=== PATIENT | female | born 1945 | race Caucasian/White ===

== ENCOUNTER → 2020-04-23 | Day surgery (SDC) | payer OTHER, BC ==
[~2020-04-23] MED LIST: Zoledronic Acid/Mannitol/Water 5 MG/100 ML INFUS.BOT IV ONE
--- OUTSIDE RECORDS SUMMARY | 2020-04-23 10:55 | XMS REPORT | Clinical Summary ---
:1945 Author Organization [facility] Address [address] [place] [address] Care Team Providers Name Role Phone Rigoberto Gregg MD Primary Care Provider Allergies Active Allergy Reactions Severity Noted Date Comments Ciprofloxacin Rash Low 04/20/2018 Medications Medication Sig Dispensed Refills Start Date End Date Status cholecalciferol, Take 1,000 0 Ac tive vitamin D3, Units by (VITAMIN D3) 1,000 mouth daily. unit tablet ezetimibe (ZETIA) Take 10 mg 3 08/04/2019 Active 10 mg tablet by mouth daily. levothyroxine Take 88 mcg 1 07/19/2019 Act jerman (SYNTHROID) 88 mcg by mouth tablet every morning. LORAZepam (ATIVAN) Take 0.5 mg 0 09/02/2019 Active 0.5 MG tablet by mouth as needed. melatonin 3 mg Take 3 mg by 0 Ac tive tablet mouth nightly as needed for sleep. levocetirizine Take 5 mg by 0 Ac tive (XYZAL) 5 MG tablet mouth as needed for allergies. UNABLE TO FIND as needed. 0 Acti ve Med Name: Natural nectar UNABLE TO FIND as needed. 0 Acti ve Med Name: X-clear saline rinse amLODIPine-benazepr Take 1 0 10/03/2019 Active iL (LOTREL 5-20) capsule by 5-20 mg per capsule mouth daily. sertraline (ZOLOFT) Take 25 mg 0 10/06/2019 Active 25 MG tablet by mouth daily. amlodipine-atorvast Take 1 0 Discontinued (Med atin (CADUET) 5-20 tablet by 0 L ist Cleanup) mg per tablet mouth 2 (two) times a day. Active Problems Not on file Encounters Date Type Specialty Care Team Description 10/17/2019 Office Visit Neurology Wisam Guadalupe Chronic cerebra l ischemia (Primary Dx); MD Alex Small vessel di sease, cerebrovascular 09/27/2019 Transcribe Orders Neurology Wisam Guadalupe Personal h istory of transient ischemic attack (Primary Dx); MD Alex TIA (transient ischemic attack) 09/26/2019 Office Visit Neurology Wisam Guadalupe Cerebrovascular accident MD Alex (CVA), unspecif ied mechanism (HCC) (Primary Dx) after 04/23/2019 Family History Medical History Relation Name Comments Stroke Mother Relation Name Status Comments Mother Social History Tobacco Use Types Packs/Day Years Used Date Never Smoker Smokeless Tobacco: Never Used Alcohol Use Drinks/Week oz/Week Comments Yes 1 Glasses of wine 1.0 Sex Assigned at Date Recorded Not on file Job Start Date Occupation Industry Not on file Not on file Not on file Travel History Travel Start Travel End No recent travel history available. 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 attack) MRA HEAD WO CONTRAST Routine 10/05/2019 10:07 Personal history of Results for this AM [employer] transient ischemic procedure are in attack the results TIA (transient ischemic sect ion. attack) PV TRANSCRANIAL Routine 09/26/2019 5:00 Cerebrovascular Resul ts for this DOPPLER INTRACRANIAL PM [employer] INSPECTOR accident (CVA), proc edure are in ARTERIES COMPLETE unspecified mechanism t he results (HCC) section. after 04/23/2019 Results MRA Neck Wo Contrast (10/05/2019 10:08 AM TANK CAR INSPECTOR) Specimen Narrative Performed At This result has an attachment that is no t available. EXAMINATION: MRA NECK WO CONTRAST [facility] CLINICAL HISTORY: Z86.73 Personal hist ory of transient ischemic attack (TIA) and cerebral infarction without residual deficits, G45.9 Transient cerebral ischemic attack unspecified, cva COMPARISON: None FINDINGS: Noncontrast 2-D and 3-D time-o f-flight MRA of the neck is performed. Source images, multiplanar MIP reformats, and three-dimensional reformats are provided. The common and internal carotid arteries normal in caliber and contour. There is 0% stenosis by NASCET criteria. The left vertebral artery is somewhat hypoplastic. No vertebral artery stenosis or dissection is seen. IMPRESSION: Unremarkable MRA of the neck. [id number] Procedure Note Interface, Radiology Results Incoming - 10/05/2019 11:15 AM TANK CAR INSPECTOR EXAMINATION: MRA NECK WO CONTRAST CLINICAL HISTORY: Z86.73 Personal histo ry of transient ischemic attack (TIA) and cerebral infarction without residual deficits, G45.9 Transient cerebral ischemic attack unspecified, cva COMPARISON: None FINDINGS: Noncontrast 2-D and 3-D time-o f-flight MRA of the neck is performed. Source images, multiplanar MIP reformats, and three-dimensional reformats are provided. The common and internal carotid arteries normal in caliber and contour. There is 0% stenosis by NASCET criteria. The left vertebral artery is somewhat hy poplastic. No vertebral artery stenosis or dissecti on is seen. IMPRESSION: Unremarkable MRA of the neck . [id number] Performing Organization Address City/State/Zipcode Phone Number [facility] [address] [place] [address] MRA Head Wo Contrast (10/05/2019 10:07 AM TANK CAR INSPECTOR) Specimen Narrative Performed At EXAMINATION: MRA HEAD WO CONTRAST [facility] CLINICAL HISTORY: Z86.73 Personal history of transie nt ischemic attack (TIA) and cerebral infarction without residual defic its, G45.9 Transient cerebral ischemic attack unspecified, Cere bral hemorrhage suspected COMPARISON: None FINDINGS: Noncontrast 3-D [id number] MRA of the he ad is performed. Source images, multiplanar MIP reformats, and 3-D MIP reformats are provided. No proximal branch occlusion or high-gra de stenosis is seen. No aneurysm or vascular malformation is identified. IMPRESSION: Unremarkable MRA of the head. [id number] Procedure Note Interface, Radiology Results Incoming - 10/05/2019 10:16 AM TANK CAR INSPECTOR EXAMINATION: MRA HEAD WO CONTRAST CLINICAL HISTORY: Z86.73 Personal histo ry of transient ischemic attack (TIA) and cerebral infarction without residual deficits, G45.9 Transient cerebral ischemic attack unspecified, Cerebral hemorrhage suspected COMPARISON: None FINDINGS: Noncontrast 3-D [id number] MRA of the head is performed. Source images, multiplanar MIP reformats, and 3-D MIP reformats are provided. No proximal branch occlusion or high-gra de stenosis is seen. No aneurysm or vascular malformation is identified. IMPRESSION: Unremarkable MRA of the head. [id number] Performing Organization Address [facility] Phone Number [facility] [address] [place] [address] Pv transcranial Doppler intracranial arteries (09/26/2019 5:00 PM TANK CAR INSPECTOR) Specimen Narrative Performed At This result has an attachment that is no t available. Clinical Indications/Diagnosis: [facility] Equipment: Nilesh PMD 150 Vessel RIGHT LEFT Ophthalmic Artery Antegrade Antegrade Siphon normal normal Anterior Cerebral Artery Normal Not Seen Middle Cerebral Artery Normal- TIBI 5 Normal- TIBI 5 Posterior Cerebral Artery Normal Normal Verterbral Artery Normal Normal Basilic Artery Normal Normal TCD Monitoring Negative Negative BHI: >0.69 (normal) Normal Normal Head Turning Findings: normal cerebral hemodynamic flow seen. normal distal ICA and vertibrobasilar flow seen. Negative spontaneous emboli were detected. BHI: Right MCA =(59-47/47)x100/20= 1.3 BHI: Left MCA =(72-60/60)x100/20=1.0 Physician Interpretation of TCD: 1) There is no stenosis in the distal internal carotid arteries or vertebrobasilar arteries. 2) No hemodynamically significant intracranial stenose s in the major branches of the [place]. 3) No spontaneous emboli were detected during monitori ng. 4) The cerebrovascular reserve is normal on breath hol ding. Recommend ultrasound follow-up in 1-2 years or sooner if symptoms develop. 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
[2020-04-23 11:41] VITALS: BP 178/76; TEMP 98; O2SAT 98; BMI 24.7
== END ==
LOC: DS 09:21
PROVIDERS: ATTEND Internal Medicine
DX: M81.0 Age-related osteoporosis without current pathological fracture (principal); R13.10 Dysphagia, unspecified
CPT/HCPCS: 96365; J3489

== ENCOUNTER 2021-06-21 09:20 | Day surgery (SDC) | payer OTHER, BC ==
[2021-06-21] MEDS ORDERED: Zoledronic Acid/Mannitol/Water 5 MG/100 ML INFUS.BOT IV ONE (10:00)
[2021-06-21 10:21] VITALS: O2SAT 100; BMI 25.8
[2021-06-21 11:19] VITALS: BP 190/85; TEMP 98.3
== END 2021-06-21 11:18 | disposition home or self-care (01) ==
LOC: DS 09:20
PROVIDERS: ATTEND Internal Medicine
DX: M81.0 Age-related osteoporosis without current pathological fracture (principal); R13.10 Dysphagia, unspecified
CPT/HCPCS: 96365; J3489

== ENCOUNTER 2021-12-25 16:14 | Inpatient (IN) | payer OTHER, BC ==
--- OUTSIDE RECORDS SUMMARY | 2021-12-25 16:17 | XMS REPORT | Continuity of Care Document ---
:1945 Author Organization [facility] t Address [address] [place] [address] Care Team Providers Name Role Phone Marysol ANGELES Primary Care Physician Abbie Riggs Attending Clinician Unavailable MARYSOL Admitting Clinician Unavailable Payers Payer Name Policy Type Policy Effective Date Expiration Date Sour ce Number MEDICAREMEDICARE PART [id number] 2010 [place] thodist A AND 00:00:00 [facility] [id number] [place] [place] COMMERCIALBCBS 2014 Meth odist MEDICARE 9 00:00:00 Hospital [id number] -PresentComm ercial Problems Condition Condition Condition Status Onset Resolution Last Treating Co mments Source Name Details Category Date Date Treatment Clinician Date No known No known Disease Metho di active active st problems problems Hospit a l Allergies, Adverse Reactions, Alerts Allergy Allergy Status Severity Reaction(s) Onset Inactive Treating Comm ents Source Name Type Date Date Clinician ciproflo DA Active MT rash [facility] xacin 05-06 00:00: [facility] ampicill DA Active MT rash [facility] in 05-06 00:00: [facility] 00 [facility] tetracyc DA Active MT rash [facility] line 05-06 00:00: Orthope 00 dic [facility]ospita l amoxicil DA Active SV "liver [facility] fidencio problems" 05-06 00:00: Orthope 00 dic Hospita l ciproflo DA Active MT [facility] xacin 05-06 00:00: Orthope 00 dic Hospita l ampicill DA Active MT [facility] in 05-06 00:00: Orthope 00 dic Hospita l tetracyc DA Active MT [facility] line 05-06 00:00: [facility]ope 00 dic Hospita l amoxicil DA Active SV [facility] fidencio 05-06 [place] 00:00: [facility] 00 dic Hospita l Ciproflo Propensi Active Rash Method i xacin ty to 04-20 st adverse 00:00: Hospita reaction 00 l s to drug Family History Family Member Diagnosis Comments Start Date Stop Date Source Natural mother Stroke [facility] Social History Social Habit Start Date Stop Date Quantity Comments Source Tobacco use and 2019-10-17 2019-10-17 Never used [facility] exposure 00:00:00 00:00:00 Alcohol intake 2019-10-17 2019-10-17 .14 /d [facility] 00:00:00 00:00:00 Sex [birth year] [facility] 00:00:00 00:00:00 Smoking Status Start Date Stop Date Source Never smoker [facility] al Medications Ordered Filled Start Stop Current Ordering Indication Dosage Frequency Signature Comments Components Source Medication Medication Date Date Medication? Clinician (SIG) Name Name melatonin 3 2019- Yes 3mg QD Take 3 mg M ethodi mg tablet 1-[address] 19:42: nightly as Hospita 05 needed for l sleep. levocetiriz Yes 5mg Take 5 mg M ethodi ine (XYZAL) 1-[address] 5 MG tablet 19:42: as needed H ospita 05 for l allergies. UNABLE TO 2020-0 Yes as needed. Me thodi FIND - Med Name: st 19:42: Natural Hospita 05 nectar l UNABLE TO 2020-0 Yes as needed. Me thodi FIND -20 Med Name: st 19:42: X-clear Hospita 05 saline l rinse cholecalcif 2019- Yes 1000U QD Take 1,000 Methodi antione, 1-[address] vitamin D3, 19:42: mouth Hospi ta (VITAMIN 05 daily. l D3) 1,000 unit tablet sertraline Yes 25mg QD Take 25 mg M ethodi (ZOLOFT) 25 -[address] MG tablet 00:00: daily. Hospit a 00 l amLODIPine- 2019-0 Yes 1{capsu QD Take 1 M ethodi benazepriL 1-06 le} capsule by st (LOTREL 00:00: mouth Hospita 5-20) 5-20 00 daily. l mg per capsule LORAZepam 2018-09 Yes .5mg Take 0.5 Meth anibal (ATIVAN) 2-[address] 0.5 MG 00:00: mouth as Hospita tablet 00 needed. l ezetimibe 2018-09 Yes 10mg QD Take 10 mg Me thodi (ZETIA) [address] mg tablet 00:00: daily. Hospit a 00 l levothyroxi 2018-09 Yes 88ug QD Take 88 Met hodi ne 0-[address] (SYNTHROID) 00:00: mouth Hospi ta 88 mcg 00 every l tablet morning. Immunizations Ordered Immunization Filled Immunization Date Status Commen ts Source Name Name [facility] COVID-19 MRNA 2020-11-01 Completed Meth odist VACCINATION 00:00:00 [facility] COVID-19 MRNA 2020-10-11 Completed Meth odist VACCINATION 00:00:00 Hospital Procedures This patient has no known procedures. Plan of Care Planned Activity Planned Date Details Comments Source Future Scheduled Test Hepatitis C screening [facility] (procedure) [code = [id number]] Future Scheduled Test COLONOSCOPY SCREENING [facility] [code = COLONOSCOPY SCREENING] Future Scheduled Test SHINGLES VACCINES (#1) [facility] [code = SHINGLES VACCINES (#1)] Future Scheduled Test 65+ PNEUMOCOCCAL [facility] VACCINE (1 of - PPSV23) [code = 65+ PNEUMOCOCCAL VACCINE (1 of - PPSV23)] Future Scheduled Test INFLUENZA VACCINE [code [facility] = INFLUENZA VACCINE] Encounters Start End Encounter Admission Attending Care Care Encounter Source Date/Time Date/Time Type Type Clinicians Facility Department ID 2021-05-06 Inpatient EM Ke[facility] [id number] [facility] 13:00:00 [place] [id number] [place] [facility] 2021-05-16 2021-05-16 Outpatient EM Keely [facility] [id number] [facility] 05:11:00 05:11:00 [place] [id number] [place] [facility] l 2020-11-01 2020-12-10 Clinical 1.2.840.1 [id number] [facility] 14:33:17 15:32:[address] 3.430.2.7 Hospit a .[id number] l .8 2020-10-11 2020-10-11 Clinical 1.2.840.1 [id number] [facility] 12:34:32 12:51:[address] 3.430.2.7 Hospit a .3.608452 l .8 2020-10-11 2020-10-11 Travel 1.2.840.1 [id number] [facility] 00:00:00 00:00:[id number] 3.430.2.7 0.2.7.3.698 Ho spita .[id number] 084.8 l .8 Results This patient has no known results.
[2021-12-25] MEDS ORDERED: FENTANYL CITR 100 MCG/2 ML ONE (17:15)
[2021-12-25] MEDS ORDERED: ONDANSETRON 4 MG/2 ML VIAL ONE ×2 (17:15→18:46)
--- NOTE | 2021-12-25 17:21 | RAD REPORT ---
EXAM DESCRIPTION: RAD - Pelvis - 12/25/2021 4:55 pm CLINICAL HISTORY: Pelvic pain status post injury FINDINGS: Fracture involves the intertrochanteric femur extending into the greater trochanter. Fract ure fragments by up to 6 millimeters. No dislocation
--- NOTE | 2021-12-25 17:21 | RAD REPORT ---
EXAM DESCRIPTION: RAD - Hip Left 2 View - 12/25/2021 4:55 pm CLINICAL HISTORY: Left hip pain status post injury FINDINGS: Fracture involves the intertrochanteric femur extending into the greater trochanter. Fracture fragmen ts by up to 6 millimeters. No dislocation
[2021-12-25] MEDS ORDERED: METHOCARBAMOL 1,000 MG/10 ML VIAL IV ONE (17:28)
[2021-12-25] MEDS ORDERED: NA CHLORIDE 0.9% 100 ML IV ONE (17:28)
[2021-12-25 17:31] LABS: Absolute Lymphocytes (CBC) 2.2 K/uL (0.7-4.9); Hematocrit 34.9 % (36.0-45.0); RBC Red Blood Cell Count 3.67 M/uL (3.86-4.86)
--- NOTE | 2021-12-25 17:36 | EDPHYS ---
Physician Documentation [facility] Name: Marsha Rosado Age: 76 yrs Sex: Female : 1945 Arrival Date: 12/25/2021 Time: 16:18 Bed 8 Private MD: ED Physician Poli Taylor HPI: 12/25 17:30 This 76 yrs old Female presents to ER via EMS with complaints of Hip Injury. jr8 17:30 The patient or guardian reports decreased range of motion, pain. that occurred jr8 outdoors, sustained from a fall, from a standing position, left leg is externally rotated, The patient is not able to ambulate. Patient is not able to bear weight. There is no radiation of the patient's discomfort. The complaints affect the left leg. Onset: The symptoms/episode began/occurred acutely, today. Modifying factors: The symptoms are alleviated by nothing, the symptoms are aggravated by external rotation. Associated signs and symptoms: Loss of consciousness: the patient experienced no loss of consciousness. Severity of symptoms: At their worst the symptoms were moderate, in the emergency department the symptoms are unchanged. The patient has not experienced similar symptoms in the past. The patient has not recently seen a physician. This is a 76-year-old female that presented emergency room via EMS with sustaining an accidental mechanical fall outside. Stated that she hit the corner on the pavement causing her to rotate and fall onto left hip. Since then has had moderate pain to the left hip and inability to ambulate. Denies hitting head or neck or any other injury at this time.. Historical: - Allergies: 16:20 Ciprofloxacin; bp - Home Meds: 16:20 aspirin 81 mg oral chew 1 tab once daily [Active]; amlodipine oral [Active]; bp - PMHx: 16:20 Hypertensive disorder; Hypothyroidism; Hypercholesterolemia; bp - Immunization history:: Adult Immunizations up to date. - Social history:: Smoking status: Patient denies any tobacco usage or history of. ROS: 17:30 Constitutional: Negative for fever, chills, and weight loss, Neck: Negative for injury, jr8 pain, and swelling, Cardiovascular: Negative for chest pain, palpitations, and edema, Respiratory: Negative for shortness of breath, cough, wheezing, and pleuritic chest pain, Abdomen/GI: Negative for abdominal pain, nausea, vomiting, diarrhea, and constipation, Back: Negative for injury and pain, Skin: Negative for injury, rash, and discoloration, Neuro: Negative for headache, weakness, numbness, tingling, and seizure. 17:30 MS/extremity: Positive for decreased range of motion, pain, tenderness, of the left leg. Exam: 17:30 Constitutional: This is a well developed, well nourished patient who is awake, alert, jr8 and in no acute distress. Cardiovascular: Regular rate and rhythm with a normal S1 and S2. No gallops, murmurs, or rubs. Normal PMI, no JVD. No pulse deficits. Respiratory: Lungs have equal breath sounds bilaterally, clear to auscultation and percussion. No rales, rhonchi or wheezes noted. No increased work of breathing, no retractions or nasal flaring. Abdomen/GI: Soft, non-tender, with normal bowel sounds. No distension or tympany. No guarding or rebound. No evidence of tenderness throughout. Back: No spinal tenderness. No costovertebral tenderness. Full range of motion. Skin: Warm, dry with normal turgor. Normal color with no rashes, no lesions, and no evidence of cellulitis. Neuro: Awake and alert, GCS 15, oriented to person, place, time, and situation. Cranial nerves II-XII grossly intact. Motor strength 5/5 in all extremities. Sensory grossly intact. 17:30 Musculoskeletal/extremity: Extremities: grossly normal except: noted in the left leg: Patient has moderate tenderness to the posterior left hip with decreased range of motion secondary to pain. Pulses 2+ dorsal pedal is with normal sensation. Remainder of extremities unremarkable, Circulation is intact in all extremities. Sensation intact. Vital Signs: 16:20 BP 176 / 93; Pulse 85; Resp 16; Temp 98; Pulse Ox 98% ; bp 17:30 BP 159 / 84; Pulse 74; Resp 16; Pulse Ox 98% ; bp 19:41 BP 174 / 84; Pulse 75; Resp 18 S; Pulse Ox 100% on 2 lpm NC; Pain 5/10; as6 22:02 BP 171 / 80; Pulse 87; Resp 16; Pulse Ox 100% on R/A; st1 MDM: 16:18 Patient medically screened. [facility] 17:30 Data reviewed: vital signs, nurses notes, lab test result(s), EKG, radiologic studies, jr8 plain films. Data interpreted: Pulse oximetry: on room air is 98 %. Interpretation: normal. Counseling: I had a detailed discussion with the patient and/or guardian regarding: the historical points, exam findings, and any diagnostic results supporting the discharge/admit diagnosis, lab results, radiology results, the need for further work-up and treatment in the hospital. ED course: Spoke with Dr. Mathew who will see patient and do surgery tomorrow evening. Dr. Gregg called as well and will admit patient.. 12/25 17:18 Order name: Basic Metabolic Panel; Complete Time: 18:05 12/25 17:18 Order name: CBC with Diff; Complete Time: 17:47 12/25 17:18 Order name: Troponin HS; Complete Time: 18:12/25 17:18 Order name: PT-INR; Complete Time: 17:47 12/25 17:18 Order name: Ptt, Activated; Complete Time: 17:47 12/25 19:39 Order name: COVID-19/FLU A+B (Document "Date of Onset" if Symptomatic) mw2 12/25 16:18 Order name: XRAY Hip LEFT 2 view; Complete Time: 17:29 12/25 16:18 Order name: XRAY Pelvis; Complete Time: 17:29 12/25 17:18 Order name: XRAY Chest (1 view); Complete Time: 18:05 12/25 21:17 Order name: COVID-19/FLU A+B; Complete Time: 21:19 EDWI 12/25 17:18 Order name: EKG; Complete Time: 17:18 12/25 17:18 Order name: Cardiac monitoring; Complete Time: 17:47 12/25 17:18 Order name: EKG - Nurse/Tech; Complete Time: 19:04 12/25 17:18 Order name: IV Saline Lock; Complete Time: 17:20 12/25 17:18 Order name: Labs collected and sent; Complete Time: 17:20 12/25 17:18 Order name: O2 Per Protocol; Complete Time: 17:20 12/25 17:18 Order name: O2 Sat Monitoring; Complete Time: 17:20 12/25 17:29 Order name: Grayson; Complete Time: 19:41 jr8 12/25 17:43 Order name: CONS Physician Consult; Complete Time: 22:01 EDMS Administered Medications: 17:15 Drug: fentaNYL (PF) 50 mcg Route: IVP; Site: left antecubital; bp 19:04 Follow up: Response: Pain is decreased bp 17:15 Drug: Zofran (Ondansetron) 4 mg Route: IVP; Site: left antecubital; bp 19:04 Follow up: Response: No adverse reaction bp 17:30 Drug: Robaxin (methocarbamol) 1 grams Route: IVPB; Infused Over: 1 hrs; Site: left bp antecubital; 19:04 Follow up: IV Status: Completed infusion; IV Intake: 100ml bp 18:10 Drug: Dilaudid (HYDROmorphone) 0.5 mg Route: IVP; Site: left antecubital; bp 19:04 Follow up: Response: Pain is decreased bp 19:00 Drug: Valium (diazepam) 5 mg Route: IVP; Site: left antecubital; bp 19:04 Follow up: Response: Pain is decreased bp Disposition: 12/26 18:15 Co-signature as Attending Physician, Poli WALKER was immediately available on-site ms3 in the Emergency Department for consultation in the care of the patient.. Disposition Summary: 12/25/21 17:35 Hospitalization Ordered Hospitalization Status: Inpatient Admission 8 Provider: Rigoberto Gregg Location: Telemetry/MedSurg (Inpatient) [facility] Condition: Stable 8 Problem: new jr8 Symptoms: have improved jr8 Bed/Room Type: Standard [facility] Room Assignment: 219(12/25/21 21:25) cg Diagnosis - Displaced fracture of greater trochanter of left femur jr8 Forms: - Medication Reconciliation Form jr8 - SBAR form jr8 Signatures: Dispatcher [employer] EDMS Erasmo wSenson PA PA jr8 Alejandra Brown, RN RN Manuel Grover RN RN Poli Oswald DO DO ms3 Corrections: (The following items were deleted from the chart) 12/25 21:25 17:35 jr8 cg
--- NOTE | 2021-12-25 17:36 | ER ---
Nurse's Notes [facility] Name: Marsha Rosado Age: 76 yrs Sex: Female : 1945 Arrival Date: 12/25/2021 Time: 16:18 Bed 8 Private MD: Diagnosis: Displaced fracture of greater trochanter of left femur Presentation: 12/25 16:20 Chief complaint: EMS states: MECHANICAL FALL WHILE WALKING. Coronavirus screen: At this bp time, the client does not indicate any symptoms associated with coronavirus-19. Ebola Screen: No symptoms or risks identified at this time. Initial Sepsis Screen: Does the patient meet any 2 criteria? No. Patient's initial sepsis screen is negative. Does the patient have a suspected source of infection? No. Patient's initial sepsis screen is negative. Risk Assessment: Do you want to hurt yourself or someone else? Patient reports no desire to harm self or others. Onset of symptoms was December 25, 2021 at 16:15. Care prior to arrival: IV initiated. 18 GA, in the left antecubital area. 16:20 Method Of Arrival: EMS: [facility] bp 16:20 Acuity: YUKO 3 bp Triage Assessment: 16:20 General: Appears distressed, uncomfortable, Behavior is cooperative, appropriate for bp age, anxious. Pain: Complains of pain in left leg. EENT: No deficits noted. Neuro: No deficits noted. Cardiovascular: No deficits noted. Respiratory: No deficits noted. GI: No signs and/or symptoms were reported involving the gastrointestinal system. : No signs and/or symptoms were reported regarding the genitourinary system. Derm: No deficits noted. Musculoskeletal: LEFT LEG SHORTENED AND EXTERNALLY ROTATED. Historical: - Allergies: 16:20 Ciprofloxacin; bp - Home Meds: 16:20 aspirin 81 mg oral chew 1 tab once daily [Active]; amlodipine oral [Active]; bp - PMHx: 16:20 Hypertensive disorder; Hypothyroidism; Hypercholesterolemia; bp - Immunization history:: Adult Immunizations up to date. - Social history:: Smoking status: Patient denies any tobacco usage or history of. Screenin:20 Abuse screen: Denies threats or abuse. Denies injuries from another. Nutritional bp screening: No deficits noted. Tuberculosis screening: No symptoms or risk factors identified. Fall Risk None identified. Assessment: 16:20 General: SEE TRIAGE NOTE. bp 17:30 Reassessment: No changes from previously documented assessment. Patient and/or family bp updated on plan of care and expected duration. Pain level reassessed. SCHEDULED FOR OR TOMORROW AFTERNOON WITH [facility]. 19:44 General: pt reports 5/10 pain ot left leg/hip. as6 Vital Signs: 16:20 BP 176 / 93; Pulse 85; Resp 16; Temp 98; Pulse Ox 98% ; bp 17:30 BP 159 / 84; Pulse 74; Resp 16; Pulse Ox 98% ; bp 19:41 BP 174 / 84; Pulse 75; Resp 18 S; Pulse Ox 100% on 2 lpm NC; Pain 5/10; as6 22:02 BP 171 / 80; Pulse 87; Resp 16; Pulse Ox 100% on R/A; st1 ED Course: 16:18 Patient arrived in ED. bp 16:18 Erasmo Swenson PA is PHCP. jr8 16:18 Poli Taylor DO is Attending Physician. jr8 16:20 Arm band placed on. bp 16:20 Patient has correct armband on for positive identification. Bed in low position. Call bp light in reach. Side rails up X2. 16:20 Maintain EMS IV. Dressing intact. Good blood return noted. Site clean \\T\\ dry. Gauge \\T\\ bp site: 18 G LEFT AC. 16:45 Triage completed. bp 16:49 Manuel Aviles, RN is Primary Nurse. bp 16:57 XRAY Hip LEFT 2 view In Process Unspecified. EDMS 16:57 XRAY Pelvis In Process Unspecified. EDMS 17:34 Rigoberto Gregg MD is Hospitalizing Provider. jr8 17:49 XRAY Chest (1 view) In Process Unspecified. EDMS 19:40 Grayson cath inserted, using sterile technique, 18 Fr., by ne, balloon inflated, to as6 gravity drainage. 19:41 Primary Nurse role handed off by Manuel Aviles, ALCIRA mw2 19:41 Armando Varghese RN is Primary Nurse. as6 21:59 No provider procedures requiring assistance completed. Patient admitted, IV remains in st1 place. 22:01 COVID-19/FLU A+B (Document "Date of Onset" if Symptomatic) Sent. st1 22:08 Report given to ALCIRA Edmondson all questions and concerns addressed. st1 Administered Medications: 17:15 Drug: fentaNYL (PF) 50 mcg Route: IVP; Site: left antecubital; bp 19:04 Follow up: Response: Pain is decreased bp 17:15 Drug: Zofran (Ondansetron) 4 mg Route: IVP; Site: left antecubital; bp 19:04 Follow up: Response: No adverse reaction bp 17:30 Drug: Robaxin (methocarbamol) 1 grams Route: IVPB; Infused Over: 1 hrs; Site: left bp antecubital; 19:04 Follow up: IV Status: Completed infusion; IV Intake: 100ml bp 18:10 Drug: Dilaudid (HYDROmorphone) 0.5 mg Route: IVP; Site: left antecubital; bp 19:04 Follow up: Response: Pain is decreased bp 19:00 Drug: Valium (diazepam) 5 mg Route: IVP; Site: left antecubital; bp 19:04 Follow up: Response: Pain is decreased bp Intake: 19:04 IV: 100ml; Total: 100ml. bp Outcome: 17:35 Decision to Hospitalize by Provider. jr8 22:00 Admitted to Med/surg accompanied by tech, family with patient, via stretcher, room 219, st1 with chart. 22:00 Condition: good st1 22:00 Instructed on the need for admit. 22:50 Patient left the ED. st1 Signatures: Dispatcher [employer] EDMS Erasmo Swenson PA PA jr8 Manuel Aviles RN RN Arnulfo Cosme 2 Armando Varghese RN RN as6 Keren Mcclure RN RN st1
[2021-12-25 17:38] LABS: Protime INR 0.98
[2021-12-25] MEDS ORDERED: NA CHLORIDE 0.9% 250 ML ONE (17:38)
--- NOTE | 2021-12-25 17:57 | RAD REPORT ---
EXAM DESCRIPTION: Magy Single View12/25/2021 5:47 pm CLINICAL HISTORY: Preop for hip surgery COMPARISON: 2009 FINDINGS: The lungs appear clear of acute infiltrate. The heart is mildly enlarged IMPRESSION: No acute abnormalities displayed
[2021-12-25 18:01] LABS: Potassium 3.7 mmol/L (3.5-5.1); Troponin High Sensitivity 5.9 pg/mL (<58.9)
[2021-12-25] MEDS ORDERED: HYDROMORPHONE HCL 0.5 MG/0.5 ML INJ ONE (18:07)
[2021-12-25] MEDS ORDERED: ONDANSETRON 4 MG/2 ML VIAL IV PRN (18:40)
[2021-12-25] MEDS ORDERED: MORPHINE 4 MG/ML SYR ONE (18:46)
[2021-12-25] MEDS: MORPHINE 4 MG/ML SYR IV PRN ×2 (18:47→23:23)
[2021-12-25] MEDS ORDERED: DIAZEPAM 10 MG/2 ML INJ SYRINGE ONE (18:58)
[2021-12-25 21:17] LABS: SARS-COV-2 RT PCR NEGATIVE (NEGATIVE)
--- NOTE | 2021-12-25 22:00 | P.HP ---
Certification for Inpatient Patient admitted to: Inpatient With expected LOS: >2 Midnights Practitioner: I am a practitioner with admitting privileges, knowledge of patient current condition, hospital course, and medical plan of care. Services: Services provided to patient in accordance with Admission requirements found in Title 42 Section 412.3 of the Code of Federal Regulations Patient History Date of Service: 12/25/21 Reason for admission: FELL AND HAS L HIP PAIN History of Present Illness: JOSE IS LADY WITH HTN AND OSTEOPOROSIS WITH CHRONIC ANXIETY. SHE FELL ABOUT 1 MILE FROM HOME WALKING TO EXERCISE, TRIPPED ON UNEVEN GROUND AND LANDED ON L HIP. SHE HAS SEVERE PAIN AND SPASMS. Allergies ciprofloxacin [From Cipro] Allergy (Verified 06/21/21 10:21) Unknown ciprofloxacin HCl [From Cipro] Allergy (Verified 06/21/21 10:21) Unknown Home Medications: Aspirin [Adult Aspirin Regimen] 81 mg PO DAILY 04/23/20 Ezetimibe 10 mg PO DAILY 04/23/20 Levothyroxine Sodium 88 mcg PO DAILY 04/23/20 Amlodipine Besylate/Benazepril [Amlodipine-Benazepril 5-20 mg] 1 each PO DAILY 06/21/21 Review of Systems 10-point ROS is otherwise unremarkable Physical Examination - Physical Exam General: Moderate distress, Severe distress HEENT: Atraumatic, PERRLA, Mucous membr. moist/pink, EOMI, Sclerae nonicteric Neck: Supple, 2+ carotid pulse no bruit, No LAD, Without JVD or thyroid abnormality Respiratory: Clear to auscultation bilaterally, Normal air movement Cardiovascular: Regular rate/rhythm, Normal S1 S2 Gastrointestinal: Normal bowel sounds, No tenderness Musculoskeletal: No tenderness, Other Integumentary: No rashes Neurological: Normal gait, Normal speech, Normal strength at 5/5 x4 extr, Normal tone, Normal affect Lymphatics: No axilla or inguinal lymphadenopathy - Studies Laboratory Data (last 24 hrs) 12/25/21 17:20: PT 10.8, INR 0.98, APTT 32.7 12/25/21 17:20: WBC 7.7, Hgb 12.1, Hct 34.9 L, Plt Count 283 12/25/21 17:20: Sodium 129 L, Potassium 3.7, BUN 16, Creatinine 0.88, Glucose 115 H Assessment and Plan - Problems (Diagnosis) (1) Closed left hip fracture Current Visit: Yes Status: Acute Plan: SHE WILL HAVE SURGERY IN AM. SHE HAS NO KNOWN CORONARY ISSUES. MEDICALLY CLEARED WITH MILD RISK. (2) HTN (hypertension) Current Visit: Yes Status: Chronic Qualifiers: Hypertension type: primary hypertension Qualified Code(s): I10 - Essential (primary) hypertension (3) Anxiety Current Visit: Yes Status: Chronic Plan: MILD TO MODERATE. ABLE TO CONTROL WITHOUT MEDS. AT ONE POINT SHE WAS ON MEDS BEFORE. - Advance Directives Does patient have a Living Will: Yes Does patient have a Durable POA for Healthcare: Yes
[2021-12-25 23:10] VITALS: BMI 26.8
[2021-12-25] MEDS: NA CHLORIDE 0.9% 1,000 ML IV SCH (23:17)
[2021-12-26] MEDS: MORPHINE 4 MG/ML SYR IV PRN (03:03)
[2021-12-26 05:45] LABS: Absolute Lymphocytes (CBC) 1.3 K/uL (0.7-4.9); Hematocrit 35.9 % (36.0-45.0); Lymphocytes % 14.6 % (15.3-44.8); MPV 7.7 fL (7.6-11.3); RBC Red Blood Cell Count 3.75 M/uL (3.86-4.86)
[2021-12-26] MEDS: TIZANIDINE 4 MG TABLET PO PRN ×4 (05:48→20:19)
[2021-12-26 06:00] LABS: Potassium 4.2 mmol/L (3.5-5.1)
[2021-12-26] MEDS: LEVOTHYROXINE SOD 0.088 MG TAB PO SCH (07:30)
[2021-12-26] MEDS: NA CHLORIDE 0.9% 1,000 ML IV SCH (08:00)
[2021-12-26] MEDS: ASPIRIN EC 81 MG TAB PO SCH (08:41)
[2021-12-26] MEDS ORDERED: MORPHINE 4 MG/ML SYR IV SCH (09:00)
[2021-12-26] MEDS ORDERED: AMLODIPINE 5 MG TAB PO SCH (09:00)
[2021-12-26] MEDS ORDERED: BENAZEPRIL 20 MG TAB PO SCH ×2 (09:00→21:00)
[2021-12-26] MEDS ORDERED: EZETIMIBE 10 MG TAB PO SCH (09:00)
--- NOTE | 2021-12-26 12:17 | P.PN ---
Subjective Date of Service: 12/26/21 Chief Complaint: FELL AND HAS L HIP PAIN Subjective: No new changes STILL IN A LOT OF PAIN THE BONE FRAGMENTS ARE AND WITH ANY MOVEMENT SHE HAS SPASMS. Review of Systems 10-point ROS is otherwise unremarkable Physical Examination - Vital Signs Temperature: 97.5 F Blood Pressure: 137/63 Pulse: 76 Respirations: 16 Pulse Ox (%): 98 - Physical Exam General: Oriented x3, Moderate distress, Severe distress HEENT: Atraumatic, PERRLA, EOMI Neck: Supple, JVD not distended Respiratory: Clear to auscultation bilaterally, Normal air movement Cardiovascular: Regular rate/rhythm, Normal S1 S2 Gastrointestinal: Normal bowel sounds, No tenderness Musculoskeletal: No tenderness Integumentary: No rashes Neurological: Normal speech, Normal tone, Normal affect Lymphatics: No axilla or inguinal lymphadenopathy - Studies Laboratory Data (last 24 hrs) 12/25/21 17:20: PT 10.8, INR 0.98, APTT 32.7 12/25/21 17:20: WBC 7.7, Hgb 12.1, Hct 34.9 L, Plt Count 283 12/25/21 17:20: Sodium 129 L, Potassium 3.7, BUN 16, Creatinine 0.88, Glucose 115 H Medications List Reviewed: Yes Assessment And Plan - Current Problems (Diagnosis) (1) Closed left hip fracture Current Visit: Yes Status: Acute Plan: SHE WILL HAVE SURGERY IN AM. SHE HAS NO KNOWN CORONARY ISSUES. MEDICALLY CLEARED WITH MILD RISK. (2) HTN (hypertension) Current Visit: Yes Status: Chronic Qualifiers: Hypertension type: primary hypertension Qualified Code(s): I10 - Essential (primary) hypertension (3) Anxiety Current Visit: Yes Status: Chronic Plan: MILD TO MODERATE. ABLE TO CONTROL WITHOUT MEDS. AT ONE POINT SHE WAS ON MEDS BEFORE. (4) SIADH (syndrome of inappropriate ADH production) Current Visit: Yes Status: Acute Plan: HER SODIUM IS LOW AT 127 S OSM IS LOW AND U OSM IS HIGH. NARCOTICS CAN GIVE RISE TO SIADH. I STOPPED IV FLUIDS AND RESTRICTED ORAL FLUIDS. THIS SHOULD HELP SODIUM COME UP. SHE IS STILL MEDICALLY CLEARED FOR SURGERY. THIS SHOULD NOT DELAY SURGERY. SHE NEEDS NARCOTICS SHE IS IN SEVERE PAIN.
[2021-12-26] MEDS: HYDROMORPHONE HCL 1 MG/ML INJ IV PRN ×3 (13:21→23:36)
[2021-12-26 14:20] LABS: BUN Blood Urea Nitrogen 11 mg/dL (7-18); Bicarbonate 24 mmol/L (21-32); Glucose Level 103 mg/dL (74-106); Potassium 3.8 mmol/L (3.5-5.1); Sodium Level 128 mmol/L (136-145)
[2021-12-26] MEDS: AMLODIPINE 5 MG TAB PO SCH (20:19)
[2021-12-26] MEDS: EZETIMIBE 10 MG TAB PO SCH (20:19)
[2021-12-26 21:45] LABS: MPV 7.9 fL (7.6-11.3)
[2021-12-26 22:01] LABS: Potassium 3.9 mmol/L (3.5-5.1)
[2021-12-27] MEDS: LORazepam 2 MG/ML VIAL IV PRN ×3 (00:56→22:03)
--- NOTE | 2021-12-27 03:55 | CON ---
Date of Consultation: 12/26/2021 History Of Present Illness: This is my first time seeing this patient to my knowledge. She is a 76- year-old female, who unfortunately fell yesterday injuring her left lower extremity. She was seen an d examined in the emergency department where she was ruled out for other injuries, however x-rays dem onstrated a slightly displaced proximal femur fracture. I am called in for consultation. Physical Examination: All of her long bones and joints are palpated without pain or crepitation with the exception of her l eft hip. Her left hip is painful with any movement or palpation. Imaging: Review of x-rays reveals a displaced intertrochanteric fracture on the left. Also, review of laboratories demonstrated a slightly low sodium. Assessment: A 76-year-old female, now with a slightly displaced intertrochanteric fracture on the le ft and low sodium. Plan: Plan at this time, I have discussed the sodium as well as treatment plan with Anesthesia and Levy Gregg and we will currently try to get this addressed with plan for closed reduction, intramedulla ry vandana fixation of left femur later today. This plan has been discussed with the patient and family in detail. They state they understand things as presented and want to proceed. /EBONY Voice ID: [id number] Report ID: [id number]
[2021-12-27] MEDS: HYDROMORPHONE HCL 1 MG/ML INJ IV PRN ×2 (05:26→14:21)
[2021-12-27 06:40] LABS: Hematocrit 34.5 % (36.0-45.0); Lymphocytes % 11.5 % (15.3-44.8); MPV 7.6 fL (7.6-11.3); RBC Red Blood Cell Count 3.68 M/uL (3.86-4.86)
[2021-12-27 06:53] LABS: BUN Blood Urea Nitrogen 10 mg/dL (7-18); Bicarbonate 23 mmol/L (21-32); Glucose Level 114 mg/dL (74-106); Potassium 3.8 mmol/L (3.5-5.1); Sodium Level 128 mmol/L (136-145)
[2021-12-27] MEDS: LEVOTHYROXINE SOD 0.088 MG TAB PO SCH (07:30)
[2021-12-27] MEDS ORDERED: SODIUM CHLORIDE 1 GM TAB PO STA (07:56)
[2021-12-27] MEDS ORDERED: FUROSEMIDE 20 MG/ 2ML VIAL IV ONE (07:57)
[2021-12-27] MEDS ORDERED: TRANEXAMIC ACID 1,000 MG in NA CHLORIDE 0.9% 50 ML IV SCH (08:00)
[2021-12-27] MEDS: ENOXAPARIN 40 MG/0.4 ML SQ SCH (08:09)
[2021-12-27] MEDS: ASPIRIN EC 81 MG TAB PO SCH (08:09)
[2021-12-27] MEDS ORDERED: METOPROLOL TARTRATE 5 MG/5 ML INJ IV PRN (08:47)
[2021-12-27 10:54] LABS: Potassium 3.5 mmol/L (3.5-5.1)
[2021-12-27] MEDS ORDERED: CEFAZOLIN SODIUM 1 GM/VIAL ONE (11:23)
[2021-12-27] MEDS ORDERED: Ringers Lactate 1,000 ML IV ONE (11:23)
[2021-12-27] MEDS ORDERED: FENTANYL CITR 100 MCG/2 ML ONE (11:24)
[2021-12-27] MEDS ORDERED: MIDAZOLAM HCL 2 MG/2 ML INJ ONE (11:25)
[2021-12-27] MEDS ORDERED: propofoL 200 MG/20 ML VIAL IV ONE (11:25)
[2021-12-27] MEDS ORDERED: LIDOCAINE 2% MPF 5 ML VIAL ONE (11:25)
[2021-12-27] MEDS ORDERED: EPHEDRINE SULF 50 MG/ML VIAL ONE (12:01)
[2021-12-27] MEDS ORDERED: ONDANSETRON 4 MG/2 ML VIAL ONE (12:14)
[2021-12-27] MEDS ORDERED: KETOROLAC 30 MG/ML INJ ONE (12:30)
--- NOTE | 2021-12-27 12:40 | P.BOP ---
Preoperative diagnosis: left proximal femur fracture Postoperative diagnosis: same Primary procedure: left proximal femur SUMEET vandana fixation Estimated blood loss: 20ccs Anesthesia: General Complications: None Transferred to: Recovery Room Condition: Good
[2021-12-27 13:39] VITALS: O2SAT 99
--- NOTE | 2021-12-27 14:03 | P.PN ---
Subjective Date of Service: 12/27/21 Chief Complaint: FELL AND HAS L HIP PAIN STILL IN A LOT OF PAIN THE BONE FRAGMENTS ARE AND WITH ANY MOVEMENT SHE HAS SPASMS. SP SURGERY TODAY. WE HAD SODIUM UP TO 129. SHE HAS NO SYMPTOMS FROM LOW SODIUM. SHE DID WELL WITH SURGERY. DR VALLES CALLED. I ALSO TALKED TO DR. LEVINE YESTERDAY. Physical Examination - Vital Signs Temperature: 97.9 F Blood Pressure: 157/77 Pulse: 75 Respirations: 16 Pulse Ox (%): 97 - Physical Exam General: Oriented x3, Moderate distress HEENT: Atraumatic, PERRLA, EOMI Neck: Supple, JVD not distended Respiratory: Clear to auscultation bilaterally, Normal air movement Cardiovascular: Regular rate/rhythm, Normal S1 S2 Gastrointestinal: Normal bowel sounds, No tenderness Musculoskeletal: No tenderness Integumentary: No rashes Neurological: Normal speech, Normal tone, Normal affect Lymphatics: No axilla or inguinal lymphadenopathy - Studies Medications List Reviewed: Yes Assessment And Plan - Current Problems (Diagnosis) (1) Closed left hip fracture Current Visit: Yes Status: Acute Plan: SHE WILL HAVE SURGERY IN AM. SHE HAS NO KNOWN CORONARY ISSUES. MEDICALLY CLEARED WITH MILD RISK. Qualifiers: Encounter type: subsequent encounter (2) HTN (hypertension) Current Visit: Yes Status: Chronic Qualifiers: Hypertension type: primary hypertension Qualified Code(s): I10 - Essential (primary) hypertension (3) Anxiety Current Visit: Yes Status: Chronic Plan: MILD TO MODERATE. ABLE TO CONTROL WITHOUT MEDS. AT ONE POINT SHE WAS ON MEDS BEFORE. (4) SIADH (syndrome of inappropriate ADH production) Current Visit: Yes Status: Acute Plan: HER SODIUM IS LOW AT 127 S OSM IS LOW AND U OSM IS HIGH. NARCOTICS CAN GIVE RISE TO SIADH. I STOPPED IV FLUIDS AND RESTRICTED ORAL FLUIDS. THIS SHOULD HELP SODIUM COME UP. SHE IS STILL MEDICALLY CLEARED FOR SURGERY. THIS SHOULD NOT DELAY SURGERY. SHE NEEDS NARCOTICS SHE IS IN SEVERE PAIN. SODIUM TABLETS AND LASIX GIVEN. WILL CONTINUE ORAL HYDRATION STOP BENAZEPRIL CHANGE TO COREG. THIS MAY HELP IMPROVE SODIUM.
[2021-12-27] MEDS: carvediloL 6.25 MG TAB PO SCH ×2 (14:29→20:16)
[2021-12-27] MEDS ORDERED: carvediloL 6.25 MG TAB PO ONE (20:08)
[2021-12-27 20:53] LABS: Magnesium 1.9 mg/dL (1.8-2.4); Potassium 3.6 mmol/L (3.5-5.1)
[2021-12-27] MEDS: EZETIMIBE 10 MG TAB PO SCH (20:53)
[2021-12-27] MEDS: AMLODIPINE 5 MG TAB PO SCH (20:54)
[2021-12-27] MEDS: methocarbamoL 500 MG TAB PO PRN (20:59)
[2021-12-27] MEDS ORDERED: POTASSIUM CL SA 10 MEQ TAB PO ONE (21:58)
--- NOTE | 2021-12-27 22:53 | OP ---
Date of Procedure: 12/27/2021 Surgeon: Samy Mathew MD Preoperative Diagnosis: Left comminuted proximal femur fracture. Postoperative Diagnosis: Left comminuted proximal femur fracture. Procedure: Left closed reduction with intramedullary vandana fixation using the Biomet AFFIXUS nail. Estimated Blood Loss: 20 cc. Complications: No complications. Specimen: No pathology specimen sent. Indications For Operation: Ms. Rosado is a 76-year-old female who unfortunately fell injuring her le ft lower extremity. She was seen and examined in the emergency room where she was ruled out for othe r injuries. However, unfortunately, she did have a somewhat comminuted proximal femur fracture. I w as called to see her. On physical examination, she had no other pain with the exception of her left hip. Any movement of the left hip causes pain. Review of radiographs revealed what at first appears to be an intertrochanteric fracture, however the fracture line does go down significantly more. The re is an obvious fracture that is somewhat distal to the lesser trochanter and then there is a much m ore subtle fracture, which extends farther posteriorly, appearing just as a hairline on the films, ho wever, the majority of the fractures in the intertrochanteric region. Risks, benefits, and alternati ves to the procedure planned, which is closed reduction, intramedullary vandana fixation was discussed wi th the patient and family. They state they understand things as presented. Wished to proceed. Description Of Procedure: The patient was taken to the operating room and placed in supine position. General anesthesia was obtained by staff. Following this, she was then placed on the fracture tabl e and appropriately positioned. All fractures appeared to be essentially anatomically reduced after manipulation. After this, the left lower extremity was then prepped and draped in the usual sterile fashion for this procedure. The greater trochanter was marked out using the C-arm and a vertical inc ision was made carefully through skin and soft tissues and a small incision was made in the fascia ju st superior to the greater trochanter. This was easily palpated with a finger. Starting awl was the n used to establish starting portal and the guide pin was placed easily down the femoral shaft. Foll owing this, the hand stitcher was used, and as the hand stitcher was being used, you could see that the p osterior fragment displaces slightly, but not that significantly. After this, the vandana was then place d and maintains a very slight displacement of the fracture posteriorly. The cephalomedullary screw w as then placed to appropriate depth and some compression was made in hopes that this could correct th is slightly. Also following this, the antirotation screw was then placed. The distal screw placemen t was selected to be somewhere distal to the more distal aspect of the fracture and the most distal i nterlocking screw was then placed. After this, then gently irrigated and fascia closed using heavy V icryl sutures, followed by closure of skin with Vicryl followed by bernadine. The patient was then ronni shannon in Aquacel dressing, awakened and taken to recovery room in good condition. No complications. SE/MODL Voice ID: [id number] Report ID: [id number]
[2021-12-28] MEDS: HYDROMORPHONE HCL 1 MG/ML INJ IV PRN ×2 (01:47→07:41)
[2021-12-28 05:57] LABS: Absolute Lymphocytes (CBC) 1.4 K/uL (0.7-4.9); Hematocrit 35.5 % (36.0-45.0); Lymphocytes % 15.9 % (15.3-44.8); MPV 7.7 fL (7.6-11.3); RBC Red Blood Cell Count 3.74 M/uL (3.86-4.86)
[2021-12-28 06:11] LABS: Potassium 4.1 mmol/L (3.5-5.1)
[2021-12-28] MEDS: LEVOTHYROXINE SOD 0.088 MG TAB PO SCH (06:24)
[2021-12-28] MEDS: SODIUM CHLORIDE 1 GM TAB PO SCH ×2 (08:00→17:00)
--- NOTE | 2021-12-28 08:55 | P.PN ---
Subjective Date of Service: 12/28/21 Chief Complaint: POST OP DAY 1 HIP FRACTURE Subjective: Improving STILL IN A LOT OF PAIN THE BONE FRAGMENTS ARE AND WITH ANY MOVEMENT SHE HAS SPASMS. SP SURGERY TODAY. WE HAD SODIUM UP TO 129. SHE HAS NO SYMPTOMS FROM LOW SODIUM. SHE DID WELL WITH SURGERY. DR VALLES CALLED. I ALSO TALKED TO DR. LEVINE YESTERDAY. SHE IS DOING GOOD, EATING WELL. PAIN HAS IMPROVED SIGNIFICANTLY. Review of Systems 10-point ROS is otherwise unremarkable Physical Examination - Vital Signs Temperature: 97.2 F Blood Pressure: 160/78 Pulse: 83 Respirations: 18 Pulse Ox (%): 99 - Physical Exam General: Mild distress HEENT: Atraumatic, PERRLA, EOMI Neck: Supple, JVD not distended Respiratory: Clear to auscultation bilaterally, Normal air movement Cardiovascular: Regular rate/rhythm, Normal S1 S2 Gastrointestinal: Normal bowel sounds, No tenderness Musculoskeletal: No tenderness Integumentary: No rashes Neurological: Normal speech, Normal tone, Normal affect Lymphatics: No axilla or inguinal lymphadenopathy - Studies Medications List Reviewed: Yes Assessment And Plan - Current Problems (Diagnosis) (1) Closed left hip fracture Current Visit: Yes Status: Acute Plan: SHE WILL HAVE SURGERY IN AM. SHE HAS NO KNOWN CORONARY ISSUES. MEDICALLY CLEARED WITH MILD RISK. Qualifiers: Encounter type: subsequent encounter (2) HTN (hypertension) Current Visit: Yes Status: Chronic Qualifiers: Hypertension type: primary hypertension Qualified Code(s): I10 - Essential (primary) hypertension (3) Anxiety Current Visit: Yes Status: Chronic Plan: MILD TO MODERATE. ABLE TO CONTROL WITHOUT MEDS. AT ONE POINT SHE WAS ON MEDS BEFORE. (4) SIADH (syndrome of inappropriate ADH production) Current Visit: Yes Status: Acute Plan: HER SODIUM IS LOW AT 127 S OSM IS LOW AND U OSM IS HIGH. NARCOTICS CAN GIVE RISE TO SIADH. I STOPPED IV FLUIDS AND RESTRICTED ORAL FLUIDS. THIS SHOULD HELP SODIUM COME UP. SHE IS STILL MEDICALLY CLEARED FOR SURGERY. THIS SHOULD NOT DELAY SURGERY. SHE NEEDS NARCOTICS SHE IS IN SEVERE PAIN. SODIUM TABLETS AND LASIX GIVEN. WILL CONTINUE ORAL HYDRATION STOP BENAZEPRIL CHANGE TO COREG. THIS MAY HELP IMPROVE SODIUM. CONTINUE FLUID RESTRICTION. SALT TABLETS WILL WATCH BP. DAILY LAB. (5) SVT (supraventricular tachycardia) Current Visit: Yes Status: Acute Plan: ELECTROLYTES ARE STABLE. RAISE COREG TO 12.5 MG. STOP BENAZEPRIL.
[2021-12-28] MEDS: ASPIRIN EC 81 MG TAB PO SCH (09:10)
[2021-12-28] MEDS: ENOXAPARIN 40 MG/0.4 ML SQ SCH (09:10)
[2021-12-28] MEDS: carvediloL 6.25 MG TAB PO SCH ×2 (09:10→20:22)
[2021-12-28] MEDS: JUVEN PACKET PO SCH ×2 (09:11→20:23)
--- NOTE | 2021-12-28 10:10 | RAD REPORT ---
EXAM DESCRIPTION: RAD - Fluoroscopy <1 Hour - 12/27/2021 1:44 pm FINDINGS: There were 17 portable C-arm images submitted from a fluoroscopic assisted placement of fr acture fixation hardware. Images show stepwise placement of the hardware with no suspicious or unexpe cted findings. Fluoro time was 1.0 minutes. Cumulative dose was 9.43 mGy.
[2021-12-28] MEDS: ACETAMINOPHEN 500 MG TAB PO PRN ×2 (15:02→18:32)
[2021-12-28] MEDS: EZETIMIBE 10 MG TAB PO SCH (20:21)
[2021-12-28] MEDS: AMLODIPINE 5 MG TAB PO SCH (20:22)
[2021-12-28] MEDS ORDERED: TRAMADOL HCL 50 MG TAB PO PRN (21:00)
[2021-12-28] MEDS ORDERED: HYDROMORPHONE HCL 1 MG/ML INJ IV PRN (21:01)
[2021-12-29] MEDS: ACETAMINOPHEN 500 MG TAB PO PRN ×2 (00:21→14:39)
[2021-12-29] MEDS: cloNIDine HCL 0.1 MG TAB PO PRN ×2 (04:56→09:01)
[2021-12-29 06:06] LABS: BUN Blood Urea Nitrogen 17 mg/dL (7-18); Bicarbonate 23 mmol/L (21-32); Glucose Level 115 mg/dL (74-106); Potassium 4.1 mmol/L (3.5-5.1); Sodium Level 131 mmol/L (136-145)
[2021-12-29] MEDS: JUVEN PACKET PO SCH ×2 (09:00→20:45)
[2021-12-29] MEDS: ENOXAPARIN 40 MG/0.4 ML SQ SCH (09:00)
[2021-12-29] MEDS: carvediloL 12.5 MG TAB PO SCH ×2 (09:00→20:45)
[2021-12-29] MEDS: LEVOTHYROXINE SOD 0.088 MG TAB PO SCH (09:01)
[2021-12-29] MEDS: ASPIRIN EC 81 MG TAB PO SCH (09:01)
--- NOTE | 2021-12-29 09:36 | PN ---
Date of Progress Note: 12/29/2021 Subjective: The patient is seen today. She is sleeping in bed. Her dressing is clean, dry, and int act. Apparently, she was not able to get up yesterday too much other than sitting, there is lighthea dedness. She is also complaining according to the family of some twitching and pain in her left lowe r extremity. Assessment: The patient has been doing fairly well after surgery. Discharge planning will be left t o the primary team, but advised 3 weeks of anticoagulation followed by 3 weeks of aspirin. Etelvina w ere to be removed day 10-14 and touchdown weightbearing. All of her questions were otherwise answere d today. /EBONY Voice ID: [id number] Report ID: [id number]
[2021-12-29] MEDS ORDERED: NA CHLORIDE 0.9% 1,000 ML ONE (12:35)
[2021-12-29] MEDS ORDERED: POLYETHYL GLY 3350 17 GM/DOSE PO PRN (14:41)
[2021-12-29] MEDS ORDERED: cloNIDine HCL 0.1 MG TAB PO PRN (18:18)
[2021-12-29] MEDS: EZETIMIBE 10 MG TAB PO SCH (20:44)
[2021-12-29] MEDS: AMLODIPINE 5 MG TAB PO SCH (20:46)
[2021-12-29 21:28] LABS: MPV 8.1 fL (7.6-11.3)
[2021-12-30] MEDS: methocarbamoL 500 MG TAB PO PRN ×2 (02:32→18:54)
[2021-12-30 05:04] LABS: BUN Blood Urea Nitrogen 21 mg/dL (7-18); Bicarbonate 25 mmol/L (21-32); Glucose Level 115 mg/dL (74-106); Potassium 4.1 mmol/L (3.5-5.1); Sodium Level 130 mmol/L (136-145)
[2021-12-30] MEDS: LEVOTHYROXINE SOD 0.088 MG TAB PO SCH (08:30)
[2021-12-30] MEDS: ASPIRIN EC 81 MG TAB PO SCH (08:58)
[2021-12-30] MEDS: ENOXAPARIN 40 MG/0.4 ML SQ SCH (08:58)
[2021-12-30] MEDS: carvediloL 12.5 MG TAB PO SCH ×2 (08:58→22:02)
[2021-12-30] MEDS: JUVEN PACKET PO SCH ×2 (08:59→21:00)
--- NOTE | 2021-12-30 11:28 | EKG ---
Test Date: 2021-12-25 Test Time: 18:50:49 Mmi Teacher: MARILIN MEASUREMENT RESULTS: Intervals: Rate: 72 [place]: 178 QRSD: 86 QT: 420 QTc: 459 [place]: P: 70 [place]: 178 QRS: 69 T: 68 INTERPRETIVE STATEMENTS: Normal sinus rhythm Normal ECG Compared to ECG 01/03/2010 05:28:16 Atrial premature complex(es) no longer present Electronically Signed On 12-30-21 11:14:37 CDT by Faustino Mccloud
--- NOTE | 2021-12-30 13:11 | P.PN ---
Subjective Date of Service: 12/29/21 Chief Complaint: POST OP DAY 2 HIP FRACTURE STILL IN A LOT OF PAIN THE BONE FRAGMENTS ARE AND WITH ANY MOVEMENT SHE HAS SPASMS. SP SURGERY TODAY. WE HAD SODIUM UP TO 129. SHE HAS NO SYMPTOMS FROM LOW SODIUM. SHE DID WELL WITH SURGERY. DR VALLES CALLED. I ALSO TALKED TO DR. LEVINE YESTERDAY. SHE IS DOING GOOD, EATING WELL. PAIN HAS IMPROVED SIGNIFICANTLY. SHE IS BETTER CONSTIPATION DOES NOT WANT MEDS FOR NOW. Physical Examination - Vital Signs Temperature: 98.4 F Blood Pressure: 140/78 Pulse: 71 Respirations: 14 Pulse Ox (%): 97 - Physical Exam General: Mild distress HEENT: Atraumatic, PERRLA, EOMI Neck: Supple, JVD not distended Respiratory: Clear to auscultation bilaterally, Normal air movement Cardiovascular: Regular rate/rhythm, Normal S1 S2 Gastrointestinal: Normal bowel sounds, No tenderness Musculoskeletal: No tenderness Integumentary: No rashes Neurological: Normal speech, Normal tone, Normal affect Lymphatics: No axilla or inguinal lymphadenopathy - Studies Medications List Reviewed: Yes Assessment And Plan - Current Problems (Diagnosis) (1) Closed left hip fracture Current Visit: Yes Status: Acute Plan: SHE WILL HAVE SURGERY IN AM. SHE HAS NO KNOWN CORONARY ISSUES. MEDICALLY CLEARED WITH MILD RISK. PT IN AM. CONT LOVENOX. Qualifiers: Encounter type: subsequent encounter (2) HTN (hypertension) Current Visit: Yes Status: Chronic Qualifiers: Hypertension type: primary hypertension Qualified Code(s): I10 - Essential (primary) hypertension (3) Anxiety Current Visit: Yes Status: Chronic Plan: MILD TO MODERATE. ABLE TO CONTROL WITHOUT MEDS. AT ONE POINT SHE WAS ON MEDS BEFORE. (4) SIADH (syndrome of inappropriate ADH production) Current Visit: Yes Status: Acute Plan: HER SODIUM IS LOW AT 127 S OSM IS LOW AND U OSM IS HIGH. NARCOTICS CAN GIVE RISE TO SIADH. I STOPPED IV FLUIDS AND RESTRICTED ORAL FLUIDS. THIS SHOULD HELP SODIUM COME UP. SHE IS STILL MEDICALLY CLEARED FOR SURGERY. THIS SHOULD NOT DELAY SURGERY. SHE NEEDS NARCOTICS SHE IS IN SEVERE PAIN. SODIUM TABLETS AND LASIX GIVEN. WILL CONTINUE ORAL HYDRATION STOP BENAZEPRIL CHANGE TO COREG. THIS MAY HELP IMPROVE SODIUM. CONTINUE FLUID RESTRICTION. SALT TABLETS WILL WATCH BP. DAILY LAB. (5) SVT (supraventricular tachycardia) Current Visit: Yes Status: Acute Plan: ELECTROLYTES ARE STABLE. RAISE COREG TO 12.5 MG. STOP BENAZEPRIL.
--- NOTE | 2021-12-30 13:13 | P.PN ---
Subjective Date of Service: 12/30/21 Chief Complaint: CONSTIPATON, DIZZY WHEN GETS UP Subjective: Improving WILL TAKE MEDS FOR CONSTIPATION. REHAB ORDER DONE. STILL LIGHT HEADED. Physical Examination - Vital Signs Temperature: 98.4 F Blood Pressure: 140/78 Pulse: 71 Respirations: 14 Pulse Ox (%): 97 - Physical Exam General: Oriented x3, Mild distress HEENT: Atraumatic, PERRLA, EOMI Neck: Supple, JVD not distended Respiratory: Clear to auscultation bilaterally, Normal air movement Cardiovascular: Regular rate/rhythm, Normal S1 S2 Gastrointestinal: Normal bowel sounds, No tenderness Musculoskeletal: No tenderness Integumentary: No rashes Neurological: Normal speech, Normal tone, Normal affect Lymphatics: No axilla or inguinal lymphadenopathy - Studies Medications List Reviewed: Yes Assessment And Plan - Current Problems (Diagnosis) (1) Closed left hip fracture Current Visit: Yes Status: Acute Plan: SHE WILL HAVE SURGERY IN AM. SHE HAS NO KNOWN CORONARY ISSUES. MEDICALLY CLEARED WITH MILD RISK. PT IN AM. CONT LOVENOX. Qualifiers: Encounter type: subsequent encounter (2) HTN (hypertension) Current Visit: Yes Status: Chronic Qualifiers: Hypertension type: primary hypertension Qualified Code(s): I10 - Essential (primary) hypertension (3) Anxiety Current Visit: Yes Status: Chronic Plan: MILD TO MODERATE. ABLE TO CONTROL WITHOUT MEDS. AT ONE POINT SHE WAS ON MEDS BEFORE. (4) SIADH (syndrome of inappropriate ADH production) Current Visit: Yes Status: Acute Plan: HER SODIUM IS LOW AT 127 S OSM IS LOW AND U OSM IS HIGH. NARCOTICS CAN GIVE RISE TO SIADH. I STOPPED IV FLUIDS AND RESTRICTED ORAL FLUIDS. THIS SHOULD HELP SODIUM COME UP. SHE IS STILL MEDICALLY CLEARED FOR SURGERY. THIS SHOULD NOT DELAY SURGERY. SHE NEEDS NARCOTICS SHE IS IN SEVERE PAIN. SODIUM TABLETS AND LASIX GIVEN. WILL CONTINUE ORAL HYDRATION STOP BENAZEPRIL CHANGE TO COREG. THIS MAY HELP IMPROVE SODIUM. CONTINUE FLUID RESTRICTION. SALT TABLETS WILL WATCH BP. DAILY LAB. (5) SVT (supraventricular tachycardia) Current Visit: Yes Status: Acute Plan: ELECTROLYTES ARE STABLE. RAISE COREG TO 12.5 MG. STOP BENAZEPRIL. (6) Constipated Current Visit: Yes Status: Acute Plan: SOAPSUDDS ENEMA. TO REHAB IN AM. (7) Dizzy Current Visit: Yes Status: Acute Plan: MAY BE FROM BP CHANGES. WILL FU DR ANGELO WILL SEE HER IN REHAB.
[2021-12-30] MEDS ORDERED: MELATONIN 5 MG TABLET PO PRN (19:41)
[2021-12-30] MEDS: LORazepam 2 MG/ML VIAL IV PRN (21:52)
[2021-12-30] MEDS: EZETIMIBE 10 MG TAB PO SCH (22:00)
[2021-12-30] MEDS: AMLODIPINE 5 MG TAB PO SCH (22:01)
[2021-12-31] MEDS: ACETAMINOPHEN 500 MG TAB PO PRN (02:56)
[2021-12-31 04:33] LABS: Absolute Lymphocytes (CBC) 1.3 K/uL (0.7-4.9); Hematocrit 29.6 % (36.0-45.0); Lymphocytes % 14.2 % (15.3-44.8); RBC Red Blood Cell Count 3.08 M/uL (3.86-4.86)
[2021-12-31 04:47] LABS: Potassium 4.1 mmol/L (3.5-5.1)
[2021-12-31] MEDS: LEVOTHYROXINE SOD 0.088 MG TAB PO SCH (06:54)
[2021-12-31] MEDS: ASPIRIN EC 81 MG TAB PO SCH (08:31)
[2021-12-31] MEDS: carvediloL 12.5 MG TAB PO SCH (08:31)
[2021-12-31] MEDS: ENOXAPARIN 40 MG/0.4 ML SQ SCH (08:32)
[2021-12-31] MEDS: JUVEN PACKET PO SCH (08:32)
[2021-12-31] MEDS ORDERED: methocarbamoL 500 MG TAB PO SCH (09:00)
[2021-12-31 12:37] VITALS: BP 139/66; TEMP 98.1
--- NOTE | 2021-12-31 21:50 | P.DS ---
Admission Date: 12/25/21 Discharge Date: 12/31/21 Disposition: TRANSFER TO INPATIENT REHAB Discharge Condition: FAIR Reason for Admission: CONSTIPATON, DIZZY WHEN GETS UP - Problems (1) Closed left hip fracture Status: Acute Qualifiers: Encounter type: subsequent encounter (2) HTN (hypertension) Status: Chronic Qualifiers: Hypertension type: primary hypertension Qualified Code(s): I10 - Essential (primary) hypertension (3) Anxiety Status: Chronic (4) SIADH (syndrome of inappropriate ADH production) Status: Acute (5) SVT (supraventricular tachycardia) Status: Acute (6) Constipated Status: Acute (7) Dizzy Status: Acute Brief History of Present Illness: JOSE IS LADY WITH HTN AND OSTEOPOROSIS WITH CHRONIC ANXIETY. SHE FELL ABOUT 1 MILE FROM HOME WALKING TO EXERCISE, TRIPPED ON UNEVEN GROUND AND LANDED ON L HIP. SHE HAS SEVERE PAIN AND SPASMS. Hospital Course: JEREMIAH CAME WITH L HIP FRACTURE. SHE ALSO HAD HYPONATREMIA FROM SIADH. IT TOOK A DAY MORE TO HAVE HER STABLE FOR SURGERY. SHE IS ASYMPTOMATIC PATIENT WITH MILD HYPONATREMIA AND IT STAYS ABOUT 130. SHE WILL HAVE DAILY LAB FOR IT. MEDS LIKE NARCOTICS AND ACEI CAN WORSEN SODIUM. SHE ALSO HAD CONSTIPATION FOR WHICH ENEMA WORKED. SHE IS STABLE TO BE TRANSFERRED TO REHAB FLOOR. Vital Signs/Physical Exam: Temp Pulse Resp BP Pulse Ox 98.1 F 66 16 139/66 99 12/31/21 12:00 12/31/21 12:00 12/31/21 12:00 12/31/21 12:00 12/31/21 12:00 Laboratory Data at Discharge: WBC 8.8 K/uL (4.3-10.9) 12/31/21 04:15 Hgb 10.1 g/dL (12.0-15.0) L 12/31/21 04:15 Hct 29.6 % (36.0-45.0) L D 12/31/21 04:15 Plt Count 265 K/uL (152-406) 12/31/21 04:15 PT 10.8 SECONDS (9.5-12.5) 12/25/21 17:20 INR 0.98 12/25/21 17:20 APTT 32.7 SECONDS (24.3-36.9) 12/25/21 17:20 Sodium 130 mmol/L (136-145) L 12/31/21 04:15 Potassium 4.1 mmol/L (3.5-5.1) 12/31/21 04:15 BUN 26 mg/dL (7-18) H 12/31/21 04:15 Creatinine 0.67 mg/dL (0.55-1.3) 12/31/21 04:15 Glucose 152 mg/dL (74-106) H 12/31/21 04:15 Magnesium 2.0 mg/dL (1.8-2.4) 12/31/21 04:15 Home Medications: Aspirin [Adult Aspirin Regimen] 81 mg PO DAILY 04/23/20 Ezetimibe 10 mg PO BEDTIME 04/23/20 Levothyroxine Sodium 88 mcg PO DAILY 04/23/20 Melatonin 5 mg PO BEDTIME PRN PRN 12/30/21 Acetaminophen [Tylenol Extra Strength] 500 mg PO Q4H PRN 12/31/21 Amlodipine [Norvasc*] 5 mg PO BEDTIME tab 12/31/21 Cameron [Cameron*] 1 pkt PO BID powd.pack 12/31/21 Ondansetron [Zofran (Odt)*] 4 mg PO Q4H PRN 12/31/21 Polyethyl Gly 3350 [Glycolax*] 17 gm PO DAILY PRN udbot 12/31/21 carvediloL [Coreg*] 25 mg PO BID tab 12/31/21 cloNIDine HCL [Catapres*] 0.1 mg PO Q6HP PRN tab 12/31/21 methocarbamoL [Robaxin*] 500 mg PO TID PRN tab 12/31/21 traMADol HCL [Ultram*] 50 mg PO Q4H PRN tab 12/31/21 Followup: Samy Mathew MD [ACTIVE - CAN ADMIT] - (Call to schedule follow up appointment.)
== END 2021-12-31 12:50 | DRG 481 ==
LOC: ER 16:14 → ERHOLD 18:01 → 2ND 21:54
PROVIDERS: ADMIT Internal Medicine; ATTEND Internal Medicine
PROC: 0QS736Z Reposition Left Upper Femur with Intramedullary Internal Fixation Device, Percutaneous Approach (ICD-10-PCS; principal; 2021-12-27 12:00)
DX: S72.112A Displaced fracture of greater trochanter of left femur, initial encounter for closed fracture (principal); E22.2 Syndrome of inappropriate secretion of antidiuretic hormone; I47.1 Supraventricular tachycardia; I10 Essential (primary) hypertension; F41.9 Anxiety disorder, unspecified; M81.0 Age-related osteoporosis without current pathological fracture; E03.9 Hypothyroidism, unspecified; K59.00 Constipation, unspecified; R42 Dizziness and giddiness; W01.0XXA Fall on same level from slipping, tripping and stumbling without subsequent striking against object, initial encounter; Z88.1 Allergy status to other antibiotic agents; Z79.82 Long term (current) use of aspirin; Z79.890 Hormone replacement therapy; Z79.899 Other long term (current) drug therapy; Z20.822 Contact with and (suspected) exposure to COVID-19
CPT/HCPCS: 0240U; 36415; 51702; 71045; 72170; 76000; 80048; 83735; 83930; 83935; 84300; 84484; 85025; 85049; 85610; 85730; 93005; 96365; 96366; 96375; 97110; 97116; 97161; 97530; 99285; J0690; J1170; J1650; J1940; J2250; J2405; J2704; J2800; J3010; J3360; J7030; J7050; J7120; U0002; U0003

== ENCOUNTER 2021-12-31 11:07 | Inpatient (IN) | payer OTHER, BC ==
--- NOTE | 2021-12-31 11:24 | R.PREADM ---
PRE-ADMISSION SCREENING FORM SCREENING DATE AND TIME 12/31/2021 08:47 (CDT) ANTICIPATED REHAB ADMISSION DATE 01/02/2022 REFERRING FACILITY [facility] REFERRAL DATE AND TIME 12/30/2021 08:48 (CDT) REFERRAL ROOM# [id number] ACUTE ADMIT DATE 12/25/2021 Previous Rehabilitation(s): No. ACUTE RETIREMENT SPECIALIST/DC MOVEMENT THERAPIST Maya ATTENDING PHYSICIAN JOSEFINA DOMÍNGUEZ REFERRING PHYSICIAN JOSEFINA LUNSFORD REHAB FACILITY [facility] CLINICAL LIAISON Altagracia Hartman PHYSICIAN REVIEWER Dr. Vince Harmon M.D. MR# [id number] NAME JOSE JAIME ADDRESS [address] [place] [address] PHONE [facility] [address] DATE OF 1945 AGE 76 SSN# [id number] GENDER female MARITAL STATUS PREF. LANGUAGE (IF NON-ARMENIAN) Macanese ADMIT FROM 02 - [facility] PRE-HOSPITAL LIVING SETTING 01 - Home (private home/apt. board/care, assisted living, retirement, transitional living) HOME TYPE AND DETAILS Type of home: single family house # of levels in the residence: 1 # of steps within the residence: 0 # of steps to enter the residence: 0 PRE-HOSPITAL LIVING WITH Family/Relatives FAMILY SUPPORT Yes PRIMARY FAMILY CONTACT NAME EDIN JAIME PRIMARY FAMILY CONTACT PHONE PRIMARY FAMILY CONTACT RELATIONSHIP Spouse PHONE PRIMARY FAMILY CONTACT ON ADM.? no IS PRIMARY FAMILY CONTACT AUTH. REP.? no 1ST EMERGENCY CONTACT EDIN JAIME 1ST CONTACT PHONE 1ST CONTACT RELATIONSHIP Spouse PHONE 1ST CONTACT ON ADM. no IS 1ST CONTACT AUTH. REP.? no PHONE 2ND CONTACT ON ADM.? no PATIENT EMPLOYMENT STATUS Retired (for age) PATIENT EMPLOYER No Employer PAYOR INFORMATION: 1ST PAYOR NAME MEDICARE 1ST PAYOR PHONE 1ST PAYOR INJURY/ILLNESS DUE TO ACCIDENT? No ANOTHER CONSTITUTION PARTY RESPONSIBLE? No PRIMARY REHAB/ACUTE DIAGNOSIS: LEFT HIP FRACTURE ONSET DATE 12/25/2021 REHAB IMPAIRMENT CATEGORY (JAMARCUS): 07 Fracture of LE (FracLE) MEETS 60% rule AFFECTED EXTREMITIES: LLE PRIMARY DIAGNOSIS-RELATED SURGERIES: Left closed reduction with intramedullary vandana fixation using the Biomet AFFIXUS nail. INTERVENTIONS: - Hypertension Blood pressure will be regularly assessed and medications administered as per physician recommendmarlono marian. - Anxiety Patient will continue with anxiety management strategies and symptoms will be monitored incase medica l or pharmaceutical intervention becomes warranted RISK FOR COMPLICATIONS: - Weakness Regular therapeutic activity and exercise Strengthening exercises to be performed - SKIN BREAKDOWN Nursing will assess skin daily using assessment tool and will place on Skin Breakdown Precautions as Indicated per protocol - Falls Educated pt on fall prevention strategies to reduce/eliminate fall risk pt is high risk for falls and has experienced falls at home. - Pain Educate patient on pain management strategies Clinical staff will assess patient's pain level every shift per protocol to monitor for pain manageme nt effectiveness - CVA pt has elevated BP and requires medical monitoring to manage and reduce risk for CVA. - DVT Monitor for signs and symptoms of DVT or PE. Administer anti-coagulants as indicated by physician and monitor for effectiveness. - UTI Monitor for frequency, burning, discomfort, or incontinence Physician medical management as warranted SUMMARY OF ACUTE HOSPITALIZATION: Pt. is a 76 yo Right-handed female. On 12/25/2021 she was admitted to [facility] with diagnosis LEFT HIP FRACTURE. Her impairment category is Orthopaedic Disorders 08 - Unilateral Hip Fracture (08.11). Pre-morbidly, Pt. was independent/mod-I in Locomotion, Safety Awareness, Social Cognition, and Balanc e; and she had good Sphincter Control, Self-Care, Endurance, and Communication. Currently, she has deficits of Locomotion, Safety Awareness, Social Cognition, Transfers Control, Sph incter Control, Self-Care, Communication, Endurance, and Balance. Pt. is now referred to [facility] for acute in-patient rehabilitation in order to maximize patient's functional independence in activities of daily living, strength, ROM, and mobi lity. Patient has realistic goal of being discharged at assistance level 7-Ind to reside at Home with Fami ly/Relatives. PAST MEDICAL HISTORY Essential (primary) hypertension (I10) ANXIETY CLOSE HIP FRACTURE PAIN FAINTING Osteoporosis PAST SURGICAL HISTORY: CLOSE HIP FRACTURE MEDICATION ALLERGIES: CIPROFLOXACIN ENVIRONMENTAL ALLERGIES: - Substance Allergies None Known - Other Allergies None Known CODE STATUS: Full code WEIGHT/HEIGHT/BMI: WEIGHT 171 lbs HEIGHT 5' 7" BMI 26.8 DIET: - Diet Type Regular - Diet - Solid Texture Regular - Diet - Liquid Texture Regular - Tube Feed N/A SKIN DIAGRAM: on Left hip; extent - small; stage - NS(Not Stageable). Treatment - Per Physician's Orders. REVIEW OF SYSTEMS: - Gen Alert and awake Lying in bed No apparent distress Oriented to: person, time, and place - Vital Signs Temperature: 97.6 F SBP/DBP: 143/73 Pulse: 69 Resp: 16 Vital signs stable, afebrile - CVS RRR VITAL SIGNS Temperature: 97.6 F SBP/DBP: 143/73 Pulse: 69 Resp: 16 Vital signs stable, afebrile MEDICATIONS/TREATMENT: Other- See attached MAR (Medication Administration Record). CURRENT SPHINCTER CONTROL: Pre-hospital bladder status: unspecified # of bladder accidents in the last 7 days prior to screenin Pre-hospital bowel status: unspecified # of bowel accidents in the last 7 days prior to screenin Last Bowel Movement Date: 12/31/2021 CURRENT LOCOMOTION STATUS: distance walked 0 feet DETAILED CURRENT FUNCTIONAL STATUS: - Bladder accident frequency: 7-Ind - No accidents in the past 7 days - Bowel accident frequency: 7-Ind - No accidents in the past 7 days - Walking score based on distance walked: 0(N/A) - Wheelchair score based on distance traveled: 0(N/A) QI SCORES: - Self-Care A. Eating 04-Supervision or touching assistance B. Oral hygiene 03-Partial/moderate assistance C. Toileting hygiene 88-Not attempted due to medical condition or safety concerns E. Shower/bathe self 88-Not attempted due to medical condition or safety concerns F. Upper body dressing 02-Substantial/maximal assistance G. Lower body dressing 02-Substantial/maximal assistance H. Putting on/taking off footwear 88-Not attempted due to medical condition or safety concerns - Mobility A. Roll left and right 03-Partial/moderate assistance B. Sit to lying 03-Partial/moderate assistance C. Lying to sitting on side of bed 03-Partial/moderate assistance D. Sit to stand 03-Partial/moderate assistance E. Chair/wsz-vk-xnluo transfer 02-Substantial/maximal assistance F. Toilet transfer 88-Not attempted due to medical condition or safety concerns G. Car transfer 88-Not attempted due to medical condition or safety concerns I. Walk 10 feet 88-Not attempted due to medical condition or safety concerns J. Walk 50 feet with two turns 88-Not attempted due to medical condition or safety concerns K. Walk 150 feet 88-Not attempted due to medical condition or safety concerns L. Walking 10 feet on uneven surfaces 88-Not attempted due to medical condition or safety concerns M. 1 step (curb) 88-Not attempted due to medical condition or safety concerns N. 4 steps 88-Not attempted due to medical condition or safety concerns O. 12 steps 88-Not attempted due to medical condition or safety concerns P. Picking up object 88-Not attempted due to medical condition or safety concerns R. Wheel 50 feet with two turns 88-Not attempted due to medical condition or safety concerns S. Wheel 150 feet 88-Not attempted due to medical condition or safety concerns - Bladder and Bowel Bladder continence Bowel continence - Endurance Fair - Balance Fair - Safety Awareness Fair CURRENT FUNC. DEFICITS: Self-Care, Mobility, Endurance, Balance, and Safety Awareness CURRENT / PREVIOUS ASSISTIVE DEVICES: Rolling Walker HISTORY OF FALLS. HAS THE PATIENT HAD TWO OR MORE FALLS IN THE PAST YEAR OR ANY FALL WITH INJURY IN T HE PAST YEAR?: Yes PRIOR SURGERY. DID THE PATIENT HAVE MAJOR SURGERY DURING THE 100 DAYS PRIOR TO ADMISSION?: Yes THERAPY NOTES FROM ACUTE CARE: Attached. SPECIAL NEEDS: - Safety Concerns Skin breakdown precautions needed due to skin breakdown risk PRECAUTIONS: - Weight Bearing Precaution TTWB left LE PATIENT NEEDS ACTIVE AND ONGOING THERAPEUTIC INTERVENTION OF MULTIPLE THERAPY DISCIPLINES, INCLUDING: - Dietary and Nutrition Adequate Nutrition. Nutritional Education. Nutritional Supplements. Evaluate and Treat. - Occupational Therapy Cognitive Retraining. Patient needs Occupational Therapy for a daily minimum of 1.5 hours at least 5 out of 7 days, to improve Activities of Daily Living, including: Eating, Grooming, Bathing, Dressing, Toileting, Toilet Transfers, Community Reintegration, Higher functional activities, Adaptive Equipme nt, Splinting, Household Tasks, and Other activities as determined. Visual Perceptual Training. Evalu ate and Treat. Patient/Family Education. Safety Awareness. - Speech Therapy Memory Strategies. Patient needs Speech Therapy for a daily minimum of 1.5 hours at least 5 out of 7 days, to improve: Swallowing, Cognition, Language Skills, and Compensatory Strategies. Receptive Lang uage Skills. Speech Intelligibility Training. Evaluate and Treat. Expressive Language Skills. - Physical Therapy Patient needs Physical Therapy for a daily minimum of 1.5 hours at least 5 out of 7 days, to improve: Mobility, Strengthening, Transfers, Stretching, ROM, Endurance, Ability to manage stairs, Gait, and Balance. Mobility Training. Safety Awareness. Patient/Family Education. Evaluate and Treat. PATIENT NEEDS CLOSE MEDICAL SUPERVISION BY A REHABILITATION PHYSICIAN FOR: Coordination of Treatment Team Wound Care Medical and Co-Morbidity Management Pain Management DVT Management Post-Op Complications PATIENT REQUIRES 24X7 REHAB NURSING FOR MEDICAL AND FUNCTIONAL MGT. OF THE FOLLOWING DEFICITS: Disease Management Medication Management Patient requires 24x7 Rehabilitation Nursing for: Pain Issues, Identifying and preventing risk factor s, Monitoring and reporting current medical conditions, Assisting with ambulation and transfer, Scottie ting with all ADL-s, Teaching patients about disease process and medications, Family teaching, Provid ing safe environment, Bowel and Bladder Issues, Skin Integrity, and Medication Management Patient/Family Education Providing Safe Environment Pain Management PATIENT REQUIRES INTENSIVE, COORDINATED INTERDISCIPLINARY APPROACH TO REHAB: Arranging Home Equipment/Services Discharge Planning Family Intervention/Training Patient needs Dietary and Nutrition Services for: Adequate Nutrition, Nutritional Supplements, and Nu tritional Education Patient needs Face Burler and/or Case Management for: Discharge Planning, Arranging Home Equipmen t or Services, and Family Interventions Face Burler/Case Management PATIENT REHAB POTENTIAL: Zo JAIME is able and expected to receive 3 hours of individualized therapy daily on at least 5 of ev josé antonio 7 days Zo JAIME's prognosis for significant practical improvement within a reasonable period of time appear s Good Expected level of measurable improvement will be of a practical value to Zo JAIME's functional capac ity or adaptations to impairments Has a viable Discharge Plan Medically appropriate; condition is sufficiently stable to participate in intensive rehab program DISCHARGE PLAN: - Estimated Length of Stay (days) 14. - Consensus on plan Discharge plan has been discussed with primary caregiver. Patient/Family is in agreement with the ronni n. Primary caregiver is in agreement with the plan. - Patient/Family Goals Return home independently. - Planned Living Setting Upon Discharge Home, to live with Family/Relatives. Transitional Living. RECOMMENDED CARE LEVEL: IRF RECOMMENDATION DETAILS: Recommended Admission to Comprehensive Rehabilitation Program to Increase Functional Amador SCREENER'S COMPLETENESS CONFIRMATION: - Screening Confirmation The patient data collection on this preadmission screening form is finished PHYSICIANS REVIEW AND ADMISSION DETERMINATION Admit - Based on my review of the Pre-Admission Screening results, in my medical judgment and experie nce, I concur with the findings and recommend admission to [facility], as this patient requires an IRF level of care. SIGNATURE PANEL: Buffing Line Set Up Worker - [electronically] signed by Altagracia Hartman on 12/31/2021 at 10:24 (CDT) Buffing Line Set Up Worker - [electronically] signed by Connor Tejada PT on 12/31/2021 at 11:16 (CDT) Physician Reviewer - [electronically] signed by Dr. Vince Harmon M.D. on 12/31/2021 at 11:23 (CDT )
--- OUTSIDE RECORDS SUMMARY | 2021-12-31 13:16 | XMS REPORT | Continuity of Care Document ---
:1945 Author Organization [facility] t Address [address] [place] [address] Care Team Providers Name Role Phone Marysol ANGELES Primary Care Physician Abbie Riggs Attending Clinician Unavailable MARYSOL Admitting Clinician Unavailable Payers Payer Name Policy Type Policy Effective Date Expiration Date Sour ce Number MEDICAREMEDICARE PART [id number] 2010 [place] [facility] A AND 00:00:00 [facility] [id number] [facility] [place] COMMERCIALBCBS [id number] 2014 Meth odist MEDICARE 9 00:00:00 Hospital [id number] -PresentComm ercial Problems Condition Condition Condition Status Onset Resolution Last Treating Co mments Source Name Details Category Date Date Treatment Clinician Date No known No known Disease Metho di active active st problems problems Hospit a l Allergies, Adverse Reactions, Alerts Allergy Allergy Status Severity Reaction(s) Onset Inactive Treating Comm ents Source Name Type Date Date Clinician ciproflo DA Active [place] rash [facility] xacin 05-06 00:[facility]: [facility] ampicill DA Active [facility] rash [facility] in 05-06 00:00: [facility] tetracyc DA Active [facility] rash [facility] line 05-06 00:00: [facility] amoxicil DA Active SV "liver [facility] fidencio problems" 05-06 00:00: [facility]ope 00 [facility] ciproflo DA Active [facility] xacin 05-06 00:00: [facility]ope 00 [facility] ampicill DA Active [facility] in 05-06 00:00: [facility]ope 00 [facility] tetracyc DA Active [facility] line 05-06 00:00: Orthope 00 dic [...] [facility] Social History Social Habit Start Date Stop Date Quantity Comments Source Tobacco use and 2019-10-17 2019-10-17 Never used [facility] exposure 00:00:00 00:00:00 Alcohol intake 2019-10-17 2019-10-17 .14 /d [facility] 00:00:00 00:00:00 Sex [birth year] [facility] 00:00:00 00:00:00 Smoking Status Start Date Stop Date Source Never smoker [facility] al Medications Ordered Filled Start Stop Current [...] Date Status Commen ts Source Name Name [employer] COVID-19 MRNA 2020-11-01 Completed Meth odist VACCINATION 00:00:00 [facility] COVID-19 MRNA 2020-10-11 Completed Meth odist VACCINATION 00:00:00 Hospital Procedures This patient has no known procedures. Plan of Care Planned Activity Planned Date Details Comments Source Future Scheduled Test Hepatitis C screening [facility] (procedure) [code = 877499620] Future Scheduled Test COLONOSCOPY SCREENING [facility] [code = COLONOSCOPY SCREENING] Future Scheduled Test SHINGLES VACCINES (#1) [facility] [code = SHINGLES VACCINES (#1)] Future Scheduled Test 65+ PNEUMOCOCCAL [facility] VACCINE (1 of - PPSV23) [code = 65+ PNEUMOCOCCAL VACCINE (1 of - PPSV23)] Future Scheduled Test INFLUENZA VACCINE [code [facility] = INFLUENZA VACCINE] Encounters Start End Encounter Admission Attending Care Care Encounter Source Date/Time Date/Time Type Type Clinicians Facility Department ID 2021-05-06 Inpatient EM Keely [facility] DAYS [id number] [facility] 13:00:00 [place] [id number] [facility] 2021-05-16 2021-05-16 Outpatient EM Keely [facility] DAYS [id number] [facility] 05:11:00 05:11:00 [place] [id number] [facility] 2020-11-01 2020-12-10 Clinical 1.2.840.1 [id number] [facility] 14:33:17 15:32:[address] 3.430.2.7 Hospit a .3.169492 l .8 2020-10-11 2020-10-11 Clinical 1.2.840.1 [id number] [facility] 12:34:32 12:51:[address] 3.430.2.7 Hospit a .3.875402 l .8 2020-10-11 2020-10-11 Travel 1.2.840.1 [id number] [facility] 00:00:00 00:00:[address] 3.430.2.7 0.2.7.3.698 Ho spita .[id number] 084.8 l .8 Results This patient has no known results.
[2021-12-31] MEDS ORDERED: POLYETHYL GLY 3350 17 GM/DOSE PO PRN (15:08)
[2021-12-31] MEDS ORDERED: cloNIDine HCL 0.1 MG TAB PO PRN (15:11)
[2021-12-31] MEDS ORDERED: ONDANSETRON 4 MG (ODT) TAB PO PRN (15:21)
[2021-12-31] MEDS: carvediloL 25 MG TAB PO SCH (17:34)
[2021-12-31] MEDS: methocarbamoL 500 MG TAB PO PRN (19:05)
[2021-12-31 19:24] VITALS: BMI 26.7
[2021-12-31] MEDS: MELATONIN 5 MG TABLET PO PRN (20:36)
[2021-12-31] MEDS: JUVEN PACKET PO SCH (20:37)
[2021-12-31] MEDS ORDERED: AMLODIPINE 5 MG TAB PO SCH (21:00)
[2021-12-31 21:33] LABS: Urine Appearance Cloudy (Clear); Urine Bilirubin Negative (Negative); Urine Blood 2+ (Negative); Urine Color Yellow (Yellow); Urine Glucose Negative (Negative); Urine Protein Trace (Negative); Urine Specific Gravity 1.015 (1.005-1.030); Urine pH 6.5 (5.0-7.0)
[2021-12-31 21:58] LABS: Urine Bacteria 20-50 /HPF (<20); Urine Mucus 1+ /HPF (NONE SEEN)
[2021-12-31] MEDS: TRAMADOL HCL 50 MG TAB PO PRN (22:15)
[2022-01-01] MEDS: ACETAMINOPHEN 500 MG TAB PO PRN (00:04)
[2022-01-01] MEDS: TRAMADOL HCL 50 MG TAB PO PRN ×5 (01:08→20:33)
[2022-01-01 04:25] LABS: Absolute Lymphocytes (CBC) 2.1 K/uL (0.7-4.9); Hematocrit 32.6 % (36.0-45.0); Lymphocytes % 22.9 % (15.3-44.8); MPV 7.5 fL (7.6-11.3); RBC Red Blood Cell Count 3.43 M/uL (3.86-4.86)
[2022-01-01 04:40] LABS: Albumin 2.7 g/dL (3.4-5.0); Magnesium 2.5 mg/dL (1.8-2.4); Prealbumin 11.2 mg/dL (20-40)
[2022-01-01] MEDS: carvediloL 25 MG TAB PO SCH (05:32)
[2022-01-01] MEDS: LEVOTHYROXINE SOD 0.088 MG TAB PO SCH (05:32)
[2022-01-01] MEDS: methocarbamoL 500 MG TAB PO PRN (05:35)
[2022-01-01] MEDS: ENOXAPARIN 40 MG/0.4 ML SQ SCH (07:57)
[2022-01-01] MEDS: ASPIRIN EC 81 MG TAB PO SCH (07:57)
[2022-01-01] MEDS: EZETIMIBE 10 MG TAB PO SCH (07:57)
[2022-01-01] MEDS: JUVEN PACKET PO SCH ×2 (07:58→20:17)
--- NOTE | 2022-01-01 10:15 | R.HP ---
HISTORY AND PHYSICAL FACILITY: [facility] ENCOUNTER DATE AND TIME: 01/01/2022 10:06 (CDT) MR#: [id number] NAME JOSE JAIME ADDRESS: [address] [place] [address] CITY: [place] ZIP [id number] PHONE: DATE OF : 1945 AGE: 76 SSN# [id number] GENDER: Female MARITAL STATUS PRE-HOSPITAL LIVING SETTING 01 - Home (private home/apt. board/care, assisted living, longterm, transitional living) PRE-HOSPITAL LIVING WITH Family/Relatives ENCOUNTER PHYSICIAN: Dr. Vince Harmon M.D. REFERRING DOCTOR: JOSEFINA LUNSFORD DATE OF ADMISSION: 12/31/2021 13:13 (CDT) REFERRING FACILITY [facility] HOME TYPE AND DETAILS: Type of home: single family house # of levels in the residence: 1 # of steps within the residence: 0 # of steps to enter the residence: 0 ONSET DATE: 12/25/2021 PRIMARY DIAGNOSIS-RELATED SURGERIES: Left closed reduction with intramedullary vandana fixation using the Biomet AFFIXUS nail. HISTORY OF PRESENT ILLNESS (HPI): Pt. is a 76 yo Right-handed female. On 12/25/2021 she was admitted to [facility] with diagnosis LEFT HIP FRACTURE. Her impairment category is Orthopaedic Disorders 08 - Unilateral Hip Fracture (08.11). Pre-morbidly, Pt. was independent/mod-I in Locomotion, Safety Awareness, Social Cognition, and Balanc e; and she had good Sphincter Control, Self-Care, Endurance, and Communication. Currently, she has deficits of Locomotion, Safety Awareness, Social Cognition, Transfers Control, Sph incter Control, Self-Care, Communication, Endurance, and Balance. Pt. is now referred to [facility] for acute in-patient rehabilitation in order to maximize patient's functional independence in activities of daily living, strength, ROM, and mobi lity. Patient has realistic goal of being discharged at assistance level 7-Ind to reside at Home with Fami ly/Relatives. MEDICATION ALLERGIES: CIPROFLOXACIN ENVIRONMENTAL ALLERGIES: - Substance Allergies None Known - Other Allergies None Known PAST MEDICAL HISTORY: Essential (primary) hypertension (I10) ANXIETY CLOSE HIP FRACTURE PAIN FAINTING Osteoporosis PAST SURGICAL HISTORY: CLOSE HIP FRACTURE SOCIAL HISTORY: - Home Living Family/Relatives REVIEW OF SYSTEMS: - Gen No Chills Fatigue No Fever - Eyes No Double Vision No itchiness - ENMT No Difficulty Swallowing - CVS No Chest Discomfort No Chest Pain Fatigue No Weight Gain - Resp No Cough No Shortness of Breath - GI Continent No Abdominal Pain Constipation No Diarrhea - Continent No Kidney Pain No Painful Urination No Urinary Urgency - MSK Joint Pain No Muscle Cramps No Stiffness - Skin No Itching No Rash No Suspicious Lesions - Neuro Coordination Difficulty No Difficulty with Concentration No Memory Loss No Seizures Weakness - Psych No Anxiety No Depression No HIV Exposure No Persistent Infections No Seasonal Allergies - Endo No Cold/Heat Intolerance No Excessive Hunger No Excessive Thirst No Excessive Urination PHYSICAL EXAM - Gen Alert and awake Lying in bed No apparent distress Oriented to: person, time, and place - Skin No breakdown No abnormalities - Eyes No abnormalities - ENMT No abnormalities - Neck No abnormalities - CVS RRR - Chest No abnormalities - Resp Clear to auscultation - Abd Soft - GI Non distended Deferred - No abnormalities - Ext Left hip surgical site has good hemostasis. - MSK 4+/5 weakness in left lower extremity - Neuro 4/5 strength left lower extremity. - Psych No abnormalities VITAL SIGNS Temperature: 97.1 F SBP/DBP: 84 to 133/51 to 71 Pulse: 57 Resp: 16 NURSING: - Shower allowing shower - Skin care per protocol PRECAUTIONS: - Weight Bearing Precaution TTWB left LE ACTIVITIES OOB only with supervision QI SCORES: - Self-Care A. Eating 04-Supervision or touching assistance B. Oral hygiene 03-Partial/moderate assistance C. Toileting hygiene 88-Not attempted due to medical condition or safety concerns E. Shower/bathe self 88-Not attempted due to medical condition or safety concerns F. Upper body dressing 02-Substantial/maximal assistance G. Lower body dressing 02-Substantial/maximal assistance H. Putting on/taking off footwear 88-Not attempted due to medical condition or safety concerns - Mobility A. Roll left and right 03-Partial/moderate assistance B. Sit to lying 03-Partial/moderate assistance C. Lying to sitting on side of bed 03-Partial/moderate assistance D. Sit to stand 03-Partial/moderate assistance E. Chair/[id number]-kuyns transfer 02-Substantial/maximal assistance F. Toilet transfer 88-Not attempted due to medical condition or safety concerns G. Car transfer 88-Not attempted due to medical condition or safety concerns I. Walk 10 feet 88-Not attempted due to medical condition or safety concerns J. Walk 50 feet with two turns 88-Not attempted due to medical condition or safety concerns K. Walk 150 feet 88-Not attempted due to medical condition or safety concerns L. Walking 10 feet on uneven surfaces 88-Not attempted due to medical condition or safety concerns M. 1 step (curb) 88-Not attempted due to medical condition or safety concerns N. 4 steps 88-Not attempted due to medical condition or safety concerns O. 12 steps 88-Not attempted due to medical condition or safety concerns P. Picking up object 88-Not attempted due to medical condition or safety concerns R. Wheel 50 feet with two turns 88-Not attempted due to medical condition or safety concerns S. Wheel 150 feet 88-Not attempted due to medical condition or safety concerns - Bladder and Bowel Bladder continence Bowel continence - Endurance Fair - Balance Fair - Safety Awareness Fair CURRENT FUNC. DEFICITS: Self-Care, Mobility, Endurance, Balance, and Safety Awareness MEDICATIONS: - Other See attached MAR (Medication Administration Record) ASSESSMENT: Pt. is a 76 yo Right-handed female.On 12/25/2021 she was admitted to [facility] with kalie gnosis LEFT HIP FRACTURE.Her impairment category is Orthopaedic Disorders 08 - Unilateral Hip Fractu re (08.11).Pre-morbidly, Pt. was independent/mod-I in Locomotion, Safety Awareness, Social Cognition, and Balance; and she had good Sphincter Control, Self-Care, Endurance, and Communication.Currently, she has deficits of Locomotion, Safety Awareness, Social Cognition, Transfers Control, Sphincter Cont rol, Self-Care, Communication, Endurance, and Balance.Pt. is now referred to [facility] for acute in-patient rehabilitation in order to maximize patient's functional independence in activities of daily living, strength, ROM, and mobility.- Rehab Goal Patient has realistic goal of being discharged at assistance level 7-Ind to reside at Home with Fami ly/Relatives. - Physical Therapy Decreased range of motion - to improve, our physical therapists will perform initial evaluation of pt 's status upon admission and devise an individualized program for increasing patient's Range of Motio n. Gait dysfunction - to improve, our physical therapists will perform initial evaluation of pt's status upon admission and devise an individualized program for Gait Training, and Wheel Chair mobility Inability to transfer - to improve, our physical therapists will perform initial evaluation of pt's s tatus upon admission and devise an individualized program for Bed mobility Need for home safety evaluation - to improve, our physical therapists will perform initial evaluation of pt's status upon admission and devise an individualized program for Home Evaluation Need in caregiver upon discharge - to improve, our physical therapists will perform initial evaluatio n of pt's status upon admission and devise an individualized program for Caregiver Training New precaution - to improve, our physical therapists will perform initial evaluation of pt's status u sarkis admission and devise an individualized program for Patient precaution education Poor balance - to improve, our physical therapists will perform initial evaluation of pt's status upo n admission and devise an individualized program for Balance Training Poor endurance - to improve, our physical therapists will perform initial evaluation of pt's status u sarkis admission and devise an individualized program for Endurance Training Weakness - to improve, our physical therapists will perform initial evaluation of pt's status upon ad mission and devise an individualized program for Aquatic Therapy, Neuromuscular Reeducation, and Stre ngthening Achieving independence - to improve, our physical therapists will perform initial evaluation of pt's status upon admission and devise an individualized program for Community Reintegration Activities - Occupational Therapy ADL deficits - to improve, our occupation therapists will perform initial evaluation of pt's status u sarkis admission and devise an individualized program for Bathing, Bed mobility, Community Reintegration , Cooking, Dressing, Eating, Fine Motor Skills, Grooming, Homemaking, Kitchen Mobility, Laundry, Kajal ent Education, Safety Awareness, Splinting - Positioning, Transfers(Toilet, Tub, Shower), and Wheel C hair Management Cognitive deficits - to improve, our occupation therapists will perform initial evaluation of pt's st atus upon admission and devise an individualized program for Cognition - orientation Need for medicare coordinator - to improve, our occupation therapists will perform initial evaluation of pt's s tatus upon admission and devise an individualized program for Caregiver Training Weakness - to improve, our occupation therapists will perform initial evaluation of pt's status upon admission and devise an individualized program for Aquatic Therapy, Balance, Endurance, UE ROM, and U E strengthening MEDICAL PLAN: - Anterior Hip Precaution No abduction No active extension No adduction across midline No external rotation No hip flexion >90 degrees No internal rotation - Diet - Liquid Texture Start Regular - Tube Feed Start N/A - Diet Type Start Regular - Posterior Hip Precaution No adduction across midline No external rotation No hip flexion >90 degrees No internal rotation No wheel chair propulsion - Weight Bearing Precaution TTWB left LE - Skin care per protocol - Other See attached MAR (Medication Administration Record) - Diet - Solid Texture Regular - Shower shower DISCHARGE PLAN: - Estimated Length of Stay (days) 14. - Consensus on plan Discharge plan has been discussed with primary caregiver. Patient/Family is in agreement with the ronni n. Primary caregiver is in agreement with the plan. - Patient/Family Goals Return home independently. - Planned Living Setting Upon Discharge Home, to live with Family/Relatives. Transitional Living. SIGNATURE PANEL: (CDT)
--- NOTE | 2022-01-01 10:17 | PAPE ---
POST ADMISSION PHYSICIAN EVALUATION PATIENT: [facility] MR# [id number] REFERRING DOCTOR JOSEFINA LUNSFORD EVALUATION DATE AND TIME 01/01/2022 10:16 (CDT) NAME JOSE JAIME DATE OF 1945 AGE 76 PHONE N# [id number] GENDER female EVALUATING PHYSICIAN Dr. Vince Harmon M.D. ADMISSION DIAGNOSIS: LEFT HIP FRACTURE ONSET DATE 12/25/2021 POST-ADMISSION FUNCTIONAL/MEDICAL STATUS: - Bladder Same accident frequency: 7-Ind - No accidents in the past 7 days - Bowel Same accident frequency: 7-Ind - No accidents in the past 7 days - Walking Same score based on distance walked: 0(N/A) - Wheelchair Same score based on distance traveled: 0(N/A) STATUS CHANGE EVALUATION: No change in Functional or Medical Status is identified compared with Pre-Admission screening. PATIENT NEEDS CLOSE MEDICAL SUPERVISION BY A REHABILITATION PHYSICIAN FOR: Coordination of Treatment Team Wound Care Medical and Co-Morbidity Management Pain Management DVT Management Post-Op Complications PATIENT REQUIRES 24X7 REHAB NURSING FOR MEDICAL AND FUNCTIONAL MGT. OF THE FOLLOWING DEFICITS: Disease Management Medication Management Patient requires 24x7 Rehabilitation Nursing for: Pain Issues, Identifying and preventing risk factor s, Monitoring and reporting current medical conditions, Assisting with ambulation and transfer, Scottie ting with all ADL-s, Teaching patients about disease process and medications, Family teaching, Provid ing safe environment, Bowel and Bladder Issues, Skin Integrity, and Medication Management Patient/Family Education Providing Safe Environment Pain Management PATIENT REQUIRES INTENSIVE, COORDINATED INTERDISCIPLINARY APPROACH TO REHAB: Arranging Home Equipment/Services Discharge Planning Family Intervention/Training Patient needs Dietary and Nutrition Services for: Adequate Nutrition, Nutritional Supplements, and Nu tritional Education Patient needs Pick Up and/or Case Management for: Discharge Planning, Arranging Home Equipmen t or Services, and Family Interventions Pick Up/Case Management LIST OF IDENTIFIED AND POTENTIAL PROBLEMS: Alteration in leisure activities Bladder, Incontinence Bowel, Incontinence Infection, Actual or Potential Mobility Impaired Pain, Alteration in Comfort Self Care Deficit Skin Integrity, Actual or Potential Urinary Tract Infection (UTI), Actual or Potential RISK FOR COMPLICATIONS - Weakness Regular therapeutic activity and exercise. Strengthening exercises to be performed. - SKIN BREAKDOWN Nursing will assess skin daily using assessment tool and will place on Skin Breakdown Precautions as Indicated per protocol. - Falls Educated pt on fall prevention strategies to reduce/eliminate fall risk. pt is high risk for falls an d has experienced falls at home. - Pain Educate patient on pain management strategies. Clinical staff will assess patient's pain level every shift per protocol to monitor for pain management effectiveness. - CVA pt has elevated BP and requires medical monitoring to manage and reduce risk for CVA. - DVT Monitor for signs and symptoms of DVT or PE. Administer anti-coagulants as indicated by physician and monitor for effectiveness. - UTI Monitor for frequency, burning, discomfort, or incontinence. Physician medical management as warrante d. INTERVENTIONS - Hypertension Blood pressure will be regularly assessed and medications administered as per physician recommendatio ns. - Anxiety Patient will continue with anxiety management strategies and symptoms will be monitored incase medica l or pharmaceutical intervention becomes warranted. PATIENT COULD BE AT RISK FOR COMPLICATIONS FROM ADVERSE MEDICAL CONDITIONS DUE TO HIS/HER COMORBIDITI ES AND THE RIGORS OF THE INTENSIVE REHABILLITATION PROGRAM. METHODS OR INTERVENTIONS TO AVOID COMPLIC ATIONS INCLUDE: - Deep Vein Thrombosis (DVT) Prophylaxis therapy for prevention . Sequential Compression Device (SCD). TE D Hose. - Bleeding Assess lab values and manage abnormalities. Nursing to teach precautions for anti-coagulation therapy . Wound to be assessed every shift. - Infection Clinical staff to assess and manage the signs and symptoms of infection including fever, redness, war mth, etc. - Urinary Tract Infection - Falls Patient will be evaluated for Fall Precautions and will be placed on Fall Precautions as indicated pe r protocol. - Skin Breakdown Nursing will assess skin daily using assessment tool and will place on Skin Breakdown Precautions as indicated per protocol. - Pain Clinical staff may employ non-medication methods such as massage, distraction, decrease stimulus, etc . as needed. Clinical staff will assess patient's pain level every shift per protocol to assess and e nsure pain management effectiveness. Medications will be given and the pain level re-assessed. PRELIMINARY PLAN OF CARE: - Physical Therapy Patient needs Physical Therapy for a daily minimum of 1.5 hours at least 5 out of 7 days, to improve: Mobility, Strengthening, Transfers, Stretching, ROM, Endurance, Ability to manage stairs, Gait, and Balance. - Speech Therapy Patient needs Speech Therapy for a daily minimum of 0.5 hours at least 5 out of 7 days, to improve: S wallowing, Cognition, Language Skills, and Compensatory Strategies. - Rehabilitation Nursing Patient requires 24x7 Rehabilitation Nursing for: Pain Issues, Identifying and preventing risk factor s, Monitoring and reporting current medical conditions, Assisting with ambulation and transfer, Scottie ting with all ADL-s, Teaching patients about disease process and medications, Family teaching, Provid ing safe environment, Bowel and Bladder Issues, Skin Integrity, and Medication Management. Patient needs Pick Up and/or Case Management for: Discharge Planning, Arranging Home Equipmen t or Services, and Family Interventions. - Dietary and Nutrition Services Patient needs Dietary and Nutrition Services for: Adequate Nutrition, Nutritional Supplements, and Nu tritional Education. - Occupational Therapy Patient needs Occupational Therapy for a daily minimum of 1.5 hours at least 5 out of 7 days, to impr ove Activities of Daily Living, including: Eating, Grooming, Bathing, Dressing, Toileting, Toilet Tra nsfers, Community Reintegration, Higher functional activities, Adaptive Equipment, Splinting, Househo ld Tasks, and Other activities as determined. QI SCORES: - Self-Care A. Eating 04-Supervision or touching assistance B. Oral hygiene 03-Partial/moderate assistance C. Toileting hygiene 88-Not attempted due to medical condition or safety concerns E. Shower/bathe self 88-Not attempted due to medical condition or safety concerns F. Upper body dressing 02-Substantial/maximal assistance G. Lower body dressing 02-Substantial/maximal assistance H. Putting on/taking off footwear 88-Not attempted due to medical condition or safety concerns - Mobility A. Roll left and right 03-Partial/moderate assistance B. Sit to lying 03-Partial/moderate assistance C. Lying to sitting on side of bed 03-Partial/moderate assistance D. Sit to stand 03-Partial/moderate assistance E. Chair/vuu-qk-qibpw transfer 02-Substantial/maximal assistance F. Toilet transfer 88-Not attempted due to medical condition or safety concerns G. Car transfer 88-Not attempted due to medical condition or safety concerns I. Walk 10 feet 88-Not attempted due to medical condition or safety concerns J. Walk 50 feet with two turns 88-Not attempted due to medical condition or safety concerns K. Walk 150 feet 88-Not attempted due to medical condition or safety concerns L. Walking 10 feet on uneven surfaces 88-Not attempted due to medical condition or safety concerns M. 1 step (curb) 88-Not attempted due to medical condition or safety concerns N. 4 steps 88-Not attempted due to medical condition or safety concerns O. 12 steps 88-Not attempted due to medical condition or safety concerns P. Picking up object 88-Not attempted due to medical condition or safety concerns R. Wheel 50 feet with two turns 88-Not attempted due to medical condition or safety concerns S. Wheel 150 feet 88-Not attempted due to medical condition or safety concerns - Bladder and Bowel Bladder continence Bowel continence - Endurance Fair - Balance Fair - Safety Awareness Fair POTENTIAL FUNCTIONAL GOALS FOR PATIENT TO ACHIEVE BY DISCHARGE: - Safety Precaution Patient will remain free from falls or injury at time of discharge. - Bed Mobility Patient will perform bed mobility at 4-Beverly level of assistance. - Transfers Patient will complete transfers from bed to chair at 4-Beverly level of assistance. - Mobility Patient will ambulate 150 ft with 4-Beverly level of assistance with RW. PATIENT REHAB POTENTIAL Zo JAIME is able and expected to receive 3 hours of individualized therapy daily on at least 5 of josé antonio 7 days Zo JAIME's prognosis for significant practical improvement within a reasonable period of time appear s Good Expected level of measurable improvement will be of a practical value to Zo JAIME's functional capac ity or adaptations to impairments Has a viable Discharge Plan Medically appropriate; condition is sufficiently stable to participate in intensive rehab program DISCHARGE PLAN: - Estimated Length of Stay (days) 14. - Consensus on plan Discharge plan has been discussed with primary caregiver. Patient/Family is in agreement with the ronni n. Primary caregiver is in agreement with the plan. - Patient/Family Goals Return home independently. - Planned Living Setting Upon Discharge Home, to live with Family/Relatives. Transitional Living. CONCLUSION ON REHABILITATION NECESSITY: I have evaluated patient's pre-admission functional status and, comparing it to the patient's post-ad mission functional status now, I conclude that the pre-admission assessment was accurate. Patient's c ondition on admission supports the medical necessity of admission to IR[facility]. It is safe to proceed with patient's therapy program. SIGNATURE PANEL: (CDT)
[2022-01-01] MEDS ORDERED: AMLODIPINE 5 MG TAB PO SCH (12:43)
[2022-01-01] MEDS ORDERED: SODIUM CHLORIDE 1 GM TAB PO SCH (17:00)
[2022-01-01 17:22] LABS: Urine Appearance Cloudy (Clear); Urine Bilirubin Negative (Negative); Urine Blood 1+ (Negative); Urine Color Yellow (Yellow); Urine Glucose Negative (Negative); Urine Protein Trace (Negative); Urine Specific Gravity 1.015 (1.005-1.030); Urine Urobilinogen 0.2 mg/dL (0.2-1.0); Urine pH 6.5 (5.0-7.0)
[2022-01-01 17:28] LABS: Urine Bacteria 20-50 /HPF (<20); Urine Mucus 2+ /HPF (NONE SEEN)
[2022-01-01] MEDS: carvediloL 12.5 MG TAB PO SCH (17:53)
[2022-01-01] MEDS ORDERED: PANTOPRAZOLE 40MG TABLET PO SCH (18:00)
[2022-01-01] MEDS: CRANBERRY FRUIT EXTRACT 400 MG CAP PO SCH (20:17)
--- NOTE | 2022-01-01 22:46 | P.PN ---
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 SHE ALSO HAD PAT SO SHE IS ON SMALL DOS OF B ALENA. WE REDUCED B ALENA SHE HAD ORTHOSTASIS. SHE WAS ON FLUID RESTRICTION SHE HAS SIADH AND SODIUM IS ABOUT 130. SHE NOW WILL BE OFF RESTRICTION SODIUM DID NOT GO ANY HIGHER THAN 130. I WILL WATCH HER SODIUM EVERY OTHER DAY. SHE HAS THIGH PAIN ON L SIDE AT NIGHT. SHE DOES NOT HAVE MUCH CRAMPS Physical Examination - Vital Signs Temperature: 98.1 F Blood Pressure: 119/66 Pulse: 67 Respirations: 16 Pulse Ox (%): 98 - Physical Exam General: Mild distress HEENT: Atraumatic, PERRLA, EOMI Neck: Supple, JVD not distended Respiratory: Clear to auscultation bilaterally, Normal air movement Cardiovascular: Regular rate/rhythm, Normal S1 S2 Gastrointestinal: Normal bowel sounds, No tenderness Musculoskeletal: No tenderness Integumentary: No rashes Neurological: Normal speech, Normal tone, Normal affect Lymphatics: No axilla or inguinal lymphadenopathy - Studies Laboratory Data (last 24 hrs) 01/01/22 04:08: Sodium 130 L, Potassium 4.0, BUN 28 H, Creatinine 0.75, Glucose 129 H, Magnesium 2.5 H D 01/01/22 04:08: WBC 9.1, Hgb 11.2 L, Hct 32.6 L, Plt Count 358 D Medications List Reviewed: Yes Assessment And Plan - Current Problems (Diagnosis) (1) Orthostasis Current Visit: Yes Status: Acute Plan: SHE WAS ON FLUID RESTRICTION SHE HAS SIADH AND SODIUM IS ABOUT 130. SHE NOW WILL BE OFF RESTRICTION SODIUM DID NOT GO ANY HIGHER THAN 130. I WILL WATCH HER SODIUM EVERY OTHER DAY. WILL REDO BP CHECK DAILY. ORTHOSTASIS. (2) SIADH (syndrome of inappropriate ADH production) Current Visit: No Status: Acute Plan: CHECK QOD SODIUM. (3) SVT (supraventricular tachycardia) Current Visit: No Status: Acute Plan: CONT B ALENA. (4) HTN (hypertension) Current Visit: No Status: Chronic Plan: WILL TRY SPIRONOLACTONE ONCE ORTHOSTASIS IS WELL CONTROLLED IF NEED TO. CONINUE AMLODIPINE AND COREG. Qualifiers:
[2022-01-02] MEDS: TRAMADOL HCL 50 MG TAB PO PRN ×4 (01:18→23:59)
[2022-01-02 04:52] LABS: Absolute Lymphocytes (CBC) 1.8 K/uL (0.7-4.9); Hematocrit 28.5 % (36.0-45.0); MPV 7.5 fL (7.6-11.3); RBC Red Blood Cell Count 3.01 M/uL (3.86-4.86)
[2022-01-02 05:09] LABS: Potassium 3.8 mmol/L (3.5-5.1)
[2022-01-02] MEDS: carvediloL 12.5 MG TAB PO SCH (05:37)
[2022-01-02] MEDS: LEVOTHYROXINE SOD 0.088 MG TAB PO SCH (05:37)
[2022-01-02] MEDS: SODIUM CHLORIDE 1 GM TAB PO SCH ×2 (08:00→17:39)
[2022-01-02] MEDS: JUVEN PACKET PO SCH ×2 (08:00→19:05)
[2022-01-02] MEDS: ASPIRIN EC 81 MG TAB PO SCH (08:14)
[2022-01-02] MEDS: EZETIMIBE 10 MG TAB PO SCH (08:15)
[2022-01-02] MEDS: CRANBERRY FRUIT EXTRACT 400 MG CAP PO SCH ×2 (08:15→19:04)
[2022-01-02] MEDS: PANTOPRAZOLE 40MG TABLET PO SCH (08:15)
[2022-01-02] MEDS: ENOXAPARIN 40 MG/0.4 ML SQ SCH (08:15)
[2022-01-02] MEDS ORDERED: DOCUSATE NA 100 MG CAP PO PRN (10:22)
--- NOTE | 2022-01-02 13:41 | P.PN ---
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 SHE ALSO HAD PAT SO SHE IS ON SMALL DOS OF B ALENA. WE REDUCED B ALENA SHE HAD ORTHOSTASIS. SHE WAS ON FLUID RESTRICTION SHE HAS SIADH AND SODIUM IS ABOUT 130. SHE NOW WILL BE OFF RESTRICTION SODIUM DID NOT GO ANY HIGHER THAN 130. I WILL WATCH HER SODIUM EVERY OTHER DAY. SHE HAS THIGH PAIN ON L SIDE AT NIGHT. SHE DOES NOT HAVE MUCH CRAMPS FEELS BETTER. WILL DO PT. Physical Examination - Vital Signs Temperature: 97.8 F Blood Pressure: 181/79 Pulse: 67 Respirations: 16 Pulse Ox (%): 98 - Physical Exam General: Oriented x3, Mild distress HEENT: Atraumatic, PERRLA, EOMI Neck: Supple, JVD not distended Respiratory: Clear to auscultation bilaterally, Normal air movement Cardiovascular: Regular rate/rhythm, Normal S1 S2 Gastrointestinal: Normal bowel sounds, No tenderness Musculoskeletal: No tenderness Integumentary: No rashes Neurological: Normal speech, Normal tone, Normal affect Lymphatics: No axilla or inguinal lymphadenopathy - Studies Laboratory Data (last 24 hrs) 01/02/22 04:27: Sodium 129 L, Potassium 3.8, BUN 27 H, Creatinine 0.74, Glucose 114 H, Magnesium 2.0 D 01/02/22 04:27: WBC 7.5 D, Hgb 9.8 L, Hct 28.5 L, Plt Count 311 01/01/22 05:00: Sodium Cancelled, Potassium Cancelled, BUN Cancelled, Creatinine Cancelled, Glucose Cancelled Medications List Reviewed: Yes Assessment And Plan - Current Problems (Diagnosis) (1) Orthostasis Current Visit: Yes Status: Acute Plan: SHE WAS ON FLUID RESTRICTION SHE HAS SIADH AND SODIUM IS ABOUT 130. SHE NOW WILL BE OFF RESTRICTION SODIUM DID NOT GO ANY HIGHER THAN 130. I WILL WATCH HER SODIUM EVERY OTHER DAY. WILL REDO BP CHECK DAILY. ORTHOSTASIS. BP DAILY CHECK. LAB RTN. (2) SIADH (syndrome of inappropriate ADH production) Current Visit: No Status: Acute Plan: CHECK QOD SODIUM. (3) SVT (supraventricular tachycardia) Current Visit: No Status: Acute Plan: CONT B ALENA. (4) HTN (hypertension) Current Visit: No Status: Chronic Plan: WILL TRY SPIRONOLACTONE ONCE ORTHOSTASIS IS WELL CONTROLLED IF NEED TO. CONINUE AMLODIPINE AND COREG. Qualifiers:
[2022-01-02] MEDS: carvediloL 25 MG TAB PO SCH (17:40)
--- NOTE | 2022-01-02 18:02 | R.PN ---
PROGRESS NOTES ENCOUNTER DATE AND TIME: 01/02/2022 17:50 (CDT) NAME JOSE JAIME DATE OF : 1945 DATE OF ADMISSION: 12/31/2021 13:13 (CDT) LEFT HIP FRACTURECHIEF COMPLAINT: Left hip fracture SUBJECTIVE: Pt denied any depression. Pt denied any Shortness of Breath. Very elevated blood pressures. Increased Amlodipine to 10 mg daily from 5 mg. WBC7.5, Hgb 9.8, Plt 311. Na 129, K 3.8, glucose 114, Mg 2.0, prealbumin 11.2. UA nitrite +, Esterase 1+, WBC >50, bacteria 20-50. Initial cultures 4+alpha streptococci. Awaiting final culture report pr ior to possible antibiotics. Ambulated a total of 500' with contact guard assistance using a rolling walker. Self propelled wheelchair 250' with maximum assistance. VITAL SIGNS Temperature: 97.1 F SBP/DBP: 186/86 Pulse: 57 Resp: 16 MEDICATION ALLERGIES: CIPROFLOXACIN ENVIRONMENTAL ALLERGIES: - Substance Allergies None Known - Other Allergies None Known NURSING: - Shower allowing shower - Skin care per protocol PRECAUTIONS: - Weight Bearing Precaution TTWB left LE ACTIVITIES OOB only with supervision THERAPIES: - Dietary and Nutrition Adequate Nutrition. Nutritional Education. Nutritional Supplements. Evaluate and Treat. - Occupational Therapy Cognitive Retraining. Patient needs Occupational Therapy for a daily minimum of 1.5 hours at least 5 out of 7 days, to improve Activities of Daily Living, including: Eating, Grooming, Bathing, Dressing, Toileting, Toilet Transfers, Community Reintegration, Higher functional activities, Adaptive Equipme nt, Splinting, Household Tasks, and Other activities as determined. Visual Perceptual Training. Evalu ate and Treat. Patient/Family Education. Safety Awareness. - Speech Therapy Memory Strategies. Patient needs Speech Therapy for a daily minimum of 1.5 hours at least 5 out of 7 days, to improve: Swallowing, Cognition, Language Skills, and Compensatory Strategies. Receptive Lang uage Skills. Speech Intelligibility Training. Evaluate and Treat. Expressive Language Skills. - Physical Therapy Patient needs Physical Therapy for a daily minimum of 1.5 hours at least 5 out of 7 days, to improve: Mobility, Strengthening, Transfers, Stretching, ROM, Endurance, Ability to manage stairs, Gait, and Balance. Mobility Training. Safety Awareness. Patient/Family Education. Evaluate and Treat. PHYSICAL EXAM - Gen Alert and awake Lying in bed No apparent distress Oriented to: person, time, and place - Skin No breakdown No abnormalities - Eyes No abnormalities - ENMT No abnormalities - Neck No abnormalities - CVS RRR - Chest No abnormalities - Resp Clear to auscultation - Abd Soft - GI Non distended Deferred - No abnormalities - Ext Left hip surgical site has good hemostasis. - MSK 4+/5 weakness in left lower extremity - Neuro 4/5 strength left lower extremity. - Psych No abnormalities ASSESSMENT: Pt. is a 76 yo Right-handed female.On 12/25/2021 she was admitted to [facility] with kalie gnosis LEFT HIP FRACTURE.Her impairment category is Orthopaedic Disorders 08 - Unilateral Hip Fractu re (05.08).Pre-morbidly, Pt. was independent/mod-I in Locomotion, Safety Awareness, Social Cognition, and Balance; and she had good Sphincter Control, Self-Care, Endurance, and Communication.Currently, she has deficits of Locomotion, Safety Awareness, Social Cognition, Transfers Control, Sphincter Cont rol, Self-Care, Communication, Endurance, and Balance.Pt. is now referred to [facility] for acute in-patient rehabilitation in order to maximize patient's functional independence in activities of daily living, strength, ROM, and mobility.- Rehab Goal Patient has realistic goal of being discharged at assistance level 7-Ind to reside at Home with Fami ly/Relatives. MDM/PLAN: - Physical Therapy Decreased range of motion - to improve, our physical therapists will perform initial evaluation of p t's status upon admission and devise an individualized program for increasing patient's Range of Benny on. Gait dysfunction - to improve, our physical therapists will perform initial evaluation of pt's statu s upon admission and devise an individualized program for Gait Training, and Wheel Chair mobility Inability to transfer - to improve, our physical therapists will perform initial evaluation of pt's status upon admission and devise an individualized program for Bed mobility Need for home safety evaluation - to improve, our physical therapists will perform initial evaluatio n of pt's status upon admission and devise an individualized program for Home Evaluation Need in caregiver upon discharge - to improve, our physical therapists will perform initial evaluati on of pt's status upon admission and devise an individualized program for Caregiver Training New precaution - to improve, our physical therapists will perform initial evaluation of pt's status upon admission and devise an individualized program for Patient precaution education Poor balance - to improve, our physical therapists will perform initial evaluation of pt's status up on admission and devise an individualized program for Balance Training Poor endurance - to improve, our physical therapists will perform initial evaluation of pt's status upon admission and devise an individualized program for Endurance Training Weakness - to improve, our physical therapists will perform initial evaluation of pt's status upon a dmission and devise an individualized program for Aquatic Therapy, Neuromuscular Reeducation, and Str engthening Achieving independence - to improve, our physical therapists will perform initial evaluation of pt's status upon admission and devise an individualized program for Community Reintegration Activities - Occupational Therapy ADL deficits - to improve, our occupation therapists will perform initial evaluation of pt's status upon admission and devise an individualized program for Bathing, Bed mobility, Community Reintegratio n, Cooking, Dressing, Eating, Fine Motor Skills, Grooming, Homemaking, Kitchen Mobility, Laundry, Pat ient Education, Safety Awareness, Splinting - Positioning, Transfers(Toilet, Tub, Shower), and Wheel Chair Management Cognitive deficits - to improve, our occupation therapists will perform initial evaluation of pt's s tatus upon admission and devise an individualized program for Cognition - orientation Need for career representative - to improve, our occupation therapists will perform initial evaluation of pt's status upon admission and devise an individualized program for Caregiver Training Weakness - to improve, our occupation therapists will perform initial evaluation of pt's status upon admission and devise an individualized program for Aquatic Therapy, Balance, Endurance, UE ROM, and UE strengthening - Other See attached MAR (Medication Administration Record) - Anterior Hip Precaution No abduction No active extension No adduction across midline No external rotation No hip flexion >90 degrees No internal rotation - Diet - Liquid Texture Continue Regular - Tube Feed Continue N/A - Diet Type Continue Regular - Posterior Hip Precaution No adduction across midline No external rotation No hip flexion >90 degrees No internal rotation No wheel chair propulsion - Weight Bearing Precaution TTWB left LE - Skin care per protocol - Diet - Solid Texture Continue Regular - Shower allowing shower FUNCTIONAL STATUS: UPDATED AT WEEKLY TEAM CONFERENCE - Bladder Same accident frequency: 7-Ind - No accidents in the past 7 days - Bowel Same accident frequency: 7-Ind - No accidents in the past 7 days - Walking Same score based on distance walked: 0(N/A) - Wheelchair Same score based on distance traveled: 0(N/A) FUNCTIONAL STATUS: - Self-Care A. Eating Ind B. Grooming Joanna C. Bathing modA D. Dressing - [place] E. Dressing - Lower modA F. Toileting [place] - Sphincter Control G. Bladder control Joanna H. Bowel control Joanna - Transfers Control I. Bed/Chair/Wheelchair modA J. Toilet modA K. Tub/Shower modA - Locomotion L. Walk/Wheelchair (B) modA M. Stairs ADNO - Communication N. Comprehension (B) Joanna O. Expression (B) Joanna - Social Cognition P. Social Interaction Ind Q. Problem Solving Joanna R. Memory Joanna - Endurance Fair - Balance Fair - Safety Awareness Fair QI SCORES: - Self-Care A. Eating 04-Supervision or touching assistance B. Oral hygiene 03-Partial/moderate assistance C. Toileting hygiene 88-Not attempted due to medical condition or safety concerns E. Shower/bathe self 88-Not attempted due to medical condition or safety concerns F. Upper body dressing 02-Substantial/maximal assistance G. Lower body dressing 02-Substantial/maximal assistance H. Putting on/taking off footwear 88-Not attempted due to medical condition or safety concerns - Mobility A. Roll left and right 03-Partial/moderate assistance B. Sit to lying 03-Partial/moderate assistance C. Lying to sitting on side of bed 03-Partial/moderate assistance D. Sit to stand 03-Partial/moderate assistance E. Chair/[id number] transfer 02-Substantial/maximal assistance F. Toilet transfer 88-Not attempted due to medical condition or safety concerns G. Car transfer 88-Not attempted due to medical condition or safety concerns I. Walk 10 feet 88-Not attempted due to medical condition or safety concerns J. Walk 50 feet with two turns 88-Not attempted due to medical condition or safety concerns K. Walk 150 feet 88-Not attempted due to medical condition or safety concerns L. Walking 10 feet on uneven surfaces 88-Not attempted due to medical condition or safety concerns M. 1 step (curb) 88-Not attempted due to medical condition or safety concerns N. 4 steps 88-Not attempted due to medical condition or safety concerns O. 12 steps 88-Not attempted due to medical condition or safety concerns P. Picking up object 88-Not attempted due to medical condition or safety concerns R. Wheel 50 feet with two turns 88-Not attempted due to medical condition or safety concerns S. Wheel 150 feet 88-Not attempted due to medical condition or safety concerns - Bladder and Bowel Bladder continence Bowel continence - Endurance Fair - Balance Fair - Safety Awareness Fair CURRENT [facility]. DEFICITS: Self-Care, Mobility, Endurance, Balance, and Safety Awareness SIGNATURE PANEL: (CDT)
[2022-01-02] MEDS: GABAPENTIN 100 MG CAP PO SCH (19:04)
[2022-01-02] MEDS: AMLODIPINE 10 MG TAB PO SCH (19:07)
[2022-01-02] MEDS: MELATONIN 5 MG TABLET PO PRN (21:26)
[2022-01-03] MEDS: methocarbamoL 500 MG TAB PO PRN ×3 (02:25→14:10)
[2022-01-03 04:46] LABS: Absolute Lymphocytes (CBC) 1.7 K/uL (0.7-4.9); Hematocrit 30.5 % (36.0-45.0); Lymphocytes % 19.9 % (15.3-44.8); MPV 7.5 fL (7.6-11.3)
[2022-01-03 04:54] LABS: Potassium 3.9 mmol/L (3.5-5.1)
[2022-01-03] MEDS: carvediloL 25 MG TAB PO SCH ×2 (05:01→17:22)
[2022-01-03] MEDS: LEVOTHYROXINE SOD 0.088 MG TAB PO SCH (05:01)
[2022-01-03] MEDS: TRAMADOL HCL 50 MG TAB PO PRN ×3 (05:01→21:37)
[2022-01-03] MEDS: PANTOPRAZOLE 40MG TABLET PO SCH (07:04)
[2022-01-03] MEDS: ACETAMINOPHEN 500 MG TAB PO PRN ×2 (07:04→17:00)
[2022-01-03] MEDS: ENOXAPARIN 40 MG/0.4 ML SQ SCH (07:05)
[2022-01-03] MEDS: SODIUM CHLORIDE 1 GM TAB PO SCH ×2 (08:15→17:22)
[2022-01-03] MEDS: ASPIRIN EC 81 MG TAB PO SCH (08:15)
[2022-01-03] MEDS: GABAPENTIN 100 MG CAP PO SCH ×2 (08:15→19:52)
[2022-01-03] MEDS: CRANBERRY FRUIT EXTRACT 400 MG CAP PO SCH ×2 (08:15→19:52)
[2022-01-03] MEDS: EZETIMIBE 10 MG TAB PO SCH (08:16)
[2022-01-03] MEDS: JUVEN PACKET PO SCH ×2 (08:16→19:52)
--- NOTE | 2022-01-03 10:22 | P.RH.PN ---
Estimated Length of Stay: 15 Expected Discharge Date: 01/12/22 Discharge Disposition Plan: Home Family Support: Yes Retirement Goal: Mobility, Transfers, Self Care Vital Signs: Last Vital Signs Temp 97.0 F 01/03/22 07:50 Pulse 59 01/03/22 07:50 Resp 16 01/03/22 08:17 BP 151/74 H 01/03/22 07:50 Pulse Ox 98 01/03/22 08:17 Laboratory: Laboratory Last Values WBC 8.3 K/uL (4.3-10.9) 01/03/22 04:19 RBC 3.20 M/uL (3.86-4.86) L 01/03/22 04:19 Hgb 10.5 g/dL (12.0-15.0) L 01/03/22 04:19 Hct 30.5 % (36.0-45.0) L 01/03/22 04:19 MCV 95.4 fL (80-100) 01/03/22 04:19 MCH 33.0 pg (27.0-35.0) 01/03/22 04:19 MCHC 34.6 g/dL (32.0-36.0) 01/03/22 04:19 RDW 13.0 % (12.1-15.2) 01/03/22 04:19 Plt Count 324 K/uL (152-406) 01/03/22 04:19 MPV 7.5 fL (7.6-11.3) L 01/03/22 04:19 Neutrophils % 64.8 % (41.7-73.7) 01/03/22 04:19 Lymphocytes % 19.9 % (15.3-44.8) 01/03/22 04:19 Monocytes % 10.7 % (3.3-12.3) 01/03/22 04:19 Eosinophils % 3.7 % (0-4.4) 01/03/22 04:19 Basophils % 0.9 % (0-1.3) 01/03/22 04:19 Absolute Neutrophils 5.4 K/uL (1.8-8.0) 01/03/22 04:19 Absolute Lymphocytes 1.7 K/uL (0.7-4.9) 01/03/22 04:19 Absolute Monocytes 0.9 K/uL (0.1-1.3) 01/03/22 04:19 Absolute Eosinophils 0.3 K/uL (0-0.5) 01/03/22 04:19 Absolute Basophils 0.1 K/uL (0-0.5) 01/03/22 04:19 Sodium 130 mmol/L (136-145) L 01/03/22 04:19 Potassium 3.9 mmol/L (3.5-5.1) 01/03/22 04:19 Chloride 98 mmol/L (98-107) 01/03/22 04:19 Carbon Dioxide 26 mmol/L (21-32) 01/03/22 04:19 BUN 27 mg/dL (7-18) H 01/03/22 04:19 Creatinine 0.74 mg/dL (0.55-1.3) 01/03/22 04:19 Estimated GFR 76 mL/min (=/>90) L 01/03/22 04:19 Glucose 113 mg/dL (74-106) H 01/03/22 04:19 Calcium 8.5 mg/dL (8.5-10.1) 01/03/22 04:19 Magnesium 2.0 mg/dL (1.8-2.4) D 01/02/22 04:27 Albumin 2.7 g/dL (3.4-5.0) L 01/01/22 04:08 Prealbumin 11.2 mg/dL (20-40) L 01/01/22 04:08 Urine Color Yellow (Yellow) 01/01/22 17:19 Urine Appearance Cloudy (Clear) 01/01/22 17:19 Urine pH 6.5 (5.0-7.0) 01/01/22 17:19 Ur Specific [place] 1.015 (1.005-1.030) 01/01/22 17:19 Glucose (UA)(Auto) Negative (Negative) 01/01/22 17:19 Urine Ketones Trace (Negative) H 01/01/22 17:19 Urine Blood 1+ (Negative) H 01/01/22 17:19 Urine Nitrite Positive (Negative) H 01/01/22 17:19 Urine Bilirubin Negative (Negative) 01/01/22 17:19 Urine Urobilinogen 0.2 mg/dL (0.2-1.0) 01/01/22 17:19 Ur Leukocyte Esterase 1+ (Negative) H 01/01/22 17:19 Urine RBC 5-10 /HPF (NONE SEEN) H 01/01/22 17:19 Urine WBC >50 /HPF (<5) H 01/01/22 17:19 Ur Squamous Epith Cells <5 /HPF (NONE SEEN) 01/01/22 17:19 Ur Urothelial Cells Cancelled 01/01/22 16:25 Calcium Oxalate Crystal Cancelled 01/01/22 16:25 Uric Acid Crystals Cancelled 01/01/22 16:25 Triple Phos Crystals Cancelled 01/01/22 16:25 Other Crystals Cancelled 01/01/22 16:25 Amorphous Sediment Cancelled 01/01/22 16:25 Glitter Cells Cancelled 01/01/22 16:25 Urine Bacteria 20-50 /HPF (<20) H 01/01/22 17:19 Hyaline Casts Cancelled 01/01/22 16:25 Fine Granular Casts Cancelled 01/01/22 16:25 Coarse Granular Casts Cancelled 01/01/22 16:25 Waxy Casts Cancelled 01/01/22 16:25 RBC Casts Cancelled 01/01/22 16:25 WBC Casts Cancelled 01/01/22 16:25 Urine Mucus 2+ /HPF (NONE SEEN) 01/01/22 17:19 Urine Other Cancelled 01/01/22 16:25 Urine Trichomonas Cancelled 01/01/22 16:25 Urine Yeast Cancelled 01/01/22 16:25 Ur Yeast w Hyphae Cancelled 01/01/22 16:25 Urine Yeast (Budding) Cancelled 01/01/22 16:25 Urine Sperm Cancelled 01/01/22 16:25 Ur Microscopic Review Cancelled 01/01/22 17:19 Urine Culture Reflexed Not needed 01/01/22 17:19 Urine Total Volume Cancelled 01/01/22 16:25 Urine Total Protein Trace (Negative) H 01/01/22 17:19 Weight: 171 lb Wound Present: No Closed Surgical Incision Present: Yes Physician Update: Doing well, Min assist with bed mobility, CGA with transfers with walker, 170' with 2WW and wheelchair 250' with supervision. Set up with grooming, bathing, upper body dressing, lower body dressing is contact guard, toileting CGA, shower moderate assistance, she was guarding due to left hip pain. 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 Please see the Rehabilitation Signature page for all necessary signatures.
--- NOTE | 2022-01-03 14:54 | P.PN ---
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 SHE ALSO HAD PAT SO SHE IS ON SMALL DOS OF B ALENA. WE REDUCED B ALENA SHE HAD ORTHOSTASIS. SHE WAS ON FLUID RESTRICTION SHE HAS SIADH AND SODIUM IS ABOUT 130. SHE NOW WILL BE OFF RESTRICTION SODIUM DID NOT GO ANY HIGHER THAN 130. I WILL WATCH HER SODIUM EVERY OTHER DAY. SHE HAS THIGH PAIN ON L SIDE AT NIGHT. SHE DOES NOT HAVE MUCH CRAMPS FEELS BETTER. WILL DO PT. SHE STILL HAS PAIN AT NIGHT. OTHERWISE STABLE. Review of Systems 10-point ROS is otherwise unremarkable Physical Examination - Vital Signs Temperature: 97.0 F Blood Pressure: 151/74 Pulse: 59 Respirations: 16 Pulse Ox (%): 98 - Physical Exam General: Alert, In no apparent distress HEENT: Atraumatic, PERRLA, EOMI Neck: Supple, JVD not distended Respiratory: Clear to auscultation bilaterally, Normal air movement Cardiovascular: Regular rate/rhythm, Normal S1 S2 Gastrointestinal: Normal bowel sounds, No tenderness Musculoskeletal: No tenderness Integumentary: No rashes Neurological: Normal speech, Normal tone, Normal affect Lymphatics: No axilla or inguinal lymphadenopathy - Studies Laboratory Data (last 24 hrs) 01/03/22 04:19: Sodium 130 L, Potassium 3.9, BUN 27 H, Creatinine 0.74, Glucose 113 H 01/03/22 04:19: WBC 8.3, Hgb 10.5 L, Hct 30.5 L, Plt Count 324 Medications List Reviewed: Yes Assessment And Plan - Current Problems (Diagnosis) (1) Orthostasis Current Visit: Yes Status: Acute Plan: SHE WAS ON FLUID RESTRICTION SHE HAS SIADH AND SODIUM IS ABOUT 130. SHE NOW WILL BE OFF RESTRICTION SODIUM DID NOT GO ANY HIGHER THAN 130. I WILL WATCH HER SODIUM EVERY OTHER DAY. WILL REDO BP CHECK DAILY. ORTHOSTASIS. BP DAILY CHECK. LAB RTN. (2) SIADH (syndrome of inappropriate ADH production) Current Visit: No Status: Acute Plan: CHECK QOD SODIUM. (3) SVT (supraventricular tachycardia) Current Visit: No Status: Acute Plan: CONT B ALENA. (4) HTN (hypertension) Current Visit: No Status: Chronic Plan: WILL TRY SPIRONOLACTONE ONCE ORTHOSTASIS IS WELL CONTROLLED IF NEED TO. CONINUE AMLODIPINE AND COREG. Qualifiers: (5) Hip pain Current Visit: Yes Status: Acute Plan: CONTINU PAIN MDS MODIFIED.
[2022-01-03] MEDS: CEFUROXIME 250 MG TAB PO SCH (19:52)
[2022-01-03] MEDS: AMLODIPINE 10 MG TAB PO SCH (19:53)
[2022-01-03] MEDS: MELATONIN 5 MG TABLET PO PRN (19:56)
[2022-01-03] MEDS ORDERED: CEFUROXIME 250 MG TAB PO SCH (20:00)
[2022-01-03] MEDS: DOCUSATE NA 100 MG CAP PO SCH (21:37)
[2022-01-04] MEDS: methocarbamoL 500 MG TAB PO PRN ×3 (00:08→20:03)
[2022-01-04] MEDS: ACETAMINOPHEN 500 MG TAB PO PRN (03:19)
[2022-01-04] MEDS: LEVOTHYROXINE SOD 0.088 MG TAB PO SCH (05:31)
[2022-01-04] MEDS: carvediloL 25 MG TAB PO SCH ×2 (05:31→17:12)
[2022-01-04] MEDS: ENOXAPARIN 40 MG/0.4 ML SQ SCH (07:14)
[2022-01-04] MEDS: PANTOPRAZOLE 40MG TABLET PO SCH (07:15)
[2022-01-04] MEDS: TRAMADOL HCL 50 MG TAB PO PRN ×2 (07:15→14:59)
[2022-01-04] MEDS: CEFUROXIME 250 MG TAB PO SCH ×2 (07:55→20:03)
[2022-01-04] MEDS: EZETIMIBE 10 MG TAB PO SCH (07:55)
[2022-01-04] MEDS: SODIUM CHLORIDE 1 GM TAB PO SCH ×2 (07:55→17:12)
[2022-01-04] MEDS: ASPIRIN EC 81 MG TAB PO SCH (07:55)
[2022-01-04] MEDS: FE SULF/FA/VIT B COMP & C TAB PO SCH (07:55)
[2022-01-04] MEDS: CRANBERRY FRUIT EXTRACT 400 MG CAP PO SCH ×2 (07:56→20:03)
[2022-01-04] MEDS: GABAPENTIN 100 MG CAP PO SCH ×2 (07:57→20:02)
[2022-01-04] MEDS: JUVEN PACKET PO SCH ×2 (07:57→20:04)
--- NOTE | 2022-01-04 16:13 | P.PN ---
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 SHE ALSO HAD PAT SO SHE IS ON SMALL DOS OF B ALENA. WE REDUCED B ALENA SHE HAD ORTHOSTASIS. SHE WAS ON FLUID RESTRICTION SHE HAS SIADH AND SODIUM IS ABOUT 130. SHE NOW WILL BE OFF RESTRICTION SODIUM DID NOT GO ANY HIGHER THAN 130. I WILL WATCH HER SODIUM EVERY OTHER DAY. SHE HAS THIGH PAIN ON L SIDE AT NIGHT. SHE DOES NOT HAVE MUCH CRAMPS FEELS BETTER. WILL DO PT. SHE STILL HAS PAIN AT NIGHT. OTHERWISE STABLE. PAIN IS LOT BETTER WITH ONE TRAMAMDOL AT NIGHT. SHE WILL ADD TYLENOL IF NEED. Review of Systems 10-point ROS is otherwise unremarkable General: Weakness Physical Examination - Vital Signs Temperature: 98.4 F Blood Pressure: 134/68 Pulse: 63 Respirations: 18 Pulse Ox (%): 95 - Physical Exam General: Oriented x3, Mild distress HEENT: Atraumatic, PERRLA, EOMI Neck: Supple, JVD not distended Respiratory: Clear to auscultation bilaterally, Normal air movement Cardiovascular: Regular rate/rhythm, Normal S1 S2 Gastrointestinal: Normal bowel sounds, No tenderness Musculoskeletal: No tenderness Integumentary: No rashes Neurological: Normal speech, Normal tone, Normal affect Lymphatics: No axilla or inguinal lymphadenopathy - Studies Microbiology Data (last 24 hrs): 01/01/22 16:25 Catheterized Urine [place] Count - Final >100,000 CFU/ML. 01/01/22 16:25 Catheterized Urine - Final Escherichia Coli 12/31/21 21:15 Clean Catch Urine [place] Count - Final >100,000 CFU/ML. 12/31/21 21:15 Clean Catch Urine - Final Escherichia Coli Enterococcus Faecalis Medications List Reviewed: Yes Assessment And Plan - Current Problems (Diagnosis) (1) Orthostasis Current Visit: Yes Status: Acute Plan: SHE WAS ON FLUID RESTRICTION SHE HAS SIADH AND SODIUM IS ABOUT 130. SHE NOW WILL BE OFF RESTRICTION SODIUM DID NOT GO ANY HIGHER THAN 130. I WILL WATCH HER SODIUM EVERY OTHER DAY. WILL REDO BP CHECK DAILY. ORTHOSTASIS. BP DAILY CHECK. LAB RTN. (2) SIADH (syndrome of inappropriate ADH production) Current Visit: No Status: Acute Plan: CHECK QOD SODIUM. (3) SVT (supraventricular tachycardia) Current Visit: No Status: Acute Plan: CONT B ALENA. (4) HTN (hypertension) Current Visit: No Status: Chronic Plan: WILL TRY SPIRONOLACTONE ONCE ORTHOSTASIS IS WELL CONTROLLED IF NEED TO. CONINUE AMLODIPINE AND COREG. Qualifiers: (5) Hip pain Current Visit: Yes Status: Acute Plan: CONTINU PAIN MDS MODIFIED. TRAMADOLQHS WITH TYELNOL HELPS A LOT.
--- NOTE | 2022-01-04 16:23 | R.PN ---
PROGRESS NOTES ENCOUNTER DATE AND TIME: 01/04/2022 16:17 (CDT) NAME JOSE JAIME DATE OF : 1945 DATE OF ADMISSION: 12/31/2021 13:13 (CDT) LEFT HIP FRACTURECHIEF COMPLAINT: Left hip fracture SUBJECTIVE: Pt denied any depression. Pt denied any Shortness of Breath. Very elevated blood pressures. Increased Amlodipine to 10 mg daily from 5 mg. WBC 8.3, Hgb 10.5, Plt 324. Na 130, K 3.9, glucose 113, Mg 2.0, prealbumin 11.2. UA nitrite +, Estera se 1+, WBC >50, bacteria 20-50. Initial cultures 4+alpha streptococci. E.Coli identified, pansensitiv e. On ceftin 250 mg bid started 01-02-22. Ambulated a total of 500' with contact guard assistance using a rolling walker. Self propelled wheelchair 750' with contact guard assistance. VITAL SIGNS Temperature: 98.4 F SBP/DBP: 134/68 Pulse: 63 Resp: 15 MEDICATION ALLERGIES: CIPROFLOXACIN ENVIRONMENTAL ALLERGIES: - Substance Allergies None Known - Other Allergies None Known NURSING: - Shower allowing shower - Skin care per protocol PRECAUTIONS: - Weight Bearing Precaution TTWB left LE ACTIVITIES OOB only with supervision THERAPIES: - Dietary and Nutrition Adequate Nutrition. Nutritional Education. Nutritional Supplements. Evaluate and Treat. - Occupational Therapy Cognitive Retraining. Patient needs Occupational Therapy for a daily minimum of 1.5 hours at least 5 out of 7 days, to improve Activities of Daily Living, including: Eating, Grooming, Bathing, Dressing, Toileting, Toilet Transfers, Community Reintegration, Higher functional activities, Adaptive Equipme nt, Splinting, Household Tasks, and Other activities as determined. Visual Perceptual Training. Evalu ate and Treat. Patient/Family Education. Safety Awareness. - Speech Therapy Memory Strategies. Patient needs Speech Therapy for a daily minimum of 1.5 hours at least 5 out of 7 days, to improve: Swallowing, Cognition, Language Skills, and Compensatory Strategies. Receptive Lang uage Skills. Speech Intelligibility Training. Evaluate and Treat. Expressive Language Skills. - Physical Therapy Patient needs Physical Therapy for a daily minimum of 1.5 hours at least 5 out of 7 days, to improve: Mobility, Strengthening, Transfers, Stretching, ROM, Endurance, Ability to manage stairs, Gait, and Balance. Mobility Training. Safety Awareness. Patient/Family Education. Evaluate and Treat. PHYSICAL EXAM - Gen Alert and awake Lying in bed No apparent distress Oriented to: person, time, and place - Skin No breakdown No abnormalities - Eyes No abnormalities - ENMT No abnormalities - Neck No abnormalities - CVS RRR - Chest No abnormalities - Resp Clear to auscultation - Abd Soft - GI Non distended Deferred - No abnormalities - Ext Left hip surgical site has good hemostasis. - MSK 4+/5 weakness in left lower extremity - Neuro 4/5 strength left lower extremity. - Psych No abnormalities ASSESSMENT: Pt. is a 76 yo Right-handed female.On 12/25/2021 she was admitted to [facility] with kalie gnosis LEFT HIP FRACTURE.Her impairment category is Orthopaedic Disorders 08 - Unilateral Hip Fractu re (05.08).Pre-morbidly, Pt. was independent/mod-I in Locomotion, Safety Awareness, Social Cognition, and Balance; and she had good Sphincter Control, Self-Care, Endurance, and Communication.Currently, she has deficits of Locomotion, Safety Awareness, Social Cognition, Transfers Control, Sphincter Cont rol, Self-Care, Communication, Endurance, and Balance.Pt. is now referred to [facility] for acute in-patient rehabilitation in order to maximize patient's functional independence in activities of daily living, strength, ROM, and mobility.- Rehab Goal Patient has realistic goal of being discharged at assistance level 7-Ind to reside at Home with Fami ly/Relatives. MDM/PLAN: - Physical Therapy Decreased range of motion - to improve, our physical therapists will perform initial evaluation of p t's status upon admission and devise an individualized program for increasing patient's Range of Benny on. Gait dysfunction - to improve, our physical therapists will perform initial evaluation of pt's statu s upon admission and devise an individualized program for Gait Training, and Wheel Chair mobility Inability to transfer - to improve, our physical therapists will perform initial evaluation of pt's status upon admission and devise an individualized program for Bed mobility Need for home safety evaluation - to improve, our physical therapists will perform initial evaluatio n of pt's status upon admission and devise an individualized program for Home Evaluation Need in caregiver upon discharge - to improve, our physical therapists will perform initial evaluati on of pt's status upon admission and devise an individualized program for Caregiver Training New precaution - to improve, our physical therapists will perform initial evaluation of pt's status upon admission and devise an individualized program for Patient precaution education Poor balance - to improve, our physical therapists will perform initial evaluation of pt's status up on admission and devise an individualized program for Balance Training Poor endurance - to improve, our physical therapists will perform initial evaluation of pt's status upon admission and devise an individualized program for Endurance Training Weakness - to improve, our physical therapists will perform initial evaluation of pt's status upon a dmission and devise an individualized program for Aquatic Therapy, Neuromuscular Reeducation, and Str engthening Achieving independence - to improve, our physical therapists will perform initial evaluation of pt's status upon admission and devise an individualized program for Community Reintegration Activities - Occupational Therapy ADL deficits - to improve, our occupation therapists will perform initial evaluation of pt's status upon admission and devise an individualized program for Bathing, Bed mobility, Community Reintegratio n, Cooking, Dressing, Eating, Fine Motor Skills, Grooming, Homemaking, Kitchen Mobility, Laundry, Pat ient Education, Safety Awareness, Splinting - Positioning, Transfers(Toilet, Tub, Shower), and Wheel Chair Management Cognitive deficits - to improve, our occupation therapists will perform initial evaluation of pt's s tatus upon admission and devise an individualized program for Cognition - orientation Need for home care consultant - to improve, our occupation therapists will perform initial evaluation of pt's status upon admission and devise an individualized program for Caregiver Training Weakness - to improve, our occupation therapists will perform initial evaluation of pt's status upon admission and devise an individualized program for Aquatic Therapy, Balance, Endurance, UE ROM, and UE strengthening - Other See attached MAR (Medication Administration Record) - Anterior Hip Precaution No abduction No active extension No adduction across midline No external rotation No hip flexion >90 degrees No internal rotation - Diet - Liquid Texture Continue Regular - Tube Feed Continue N/A - Diet Type Continue Regular - Posterior Hip Precaution No adduction across midline No external rotation No hip flexion >90 degrees No internal rotation No wheel chair propulsion - Weight Bearing Precaution TTWB left LE - Skin care per protocol - Diet - Solid Texture Continue Regular - Shower allowing shower FUNCTIONAL STATUS: UPDATED AT WEEKLY TEAM CONFERENCE - Bladder Same accident frequency: 7-Ind - No accidents in the past 7 days - Bowel Same accident frequency: 7-Ind - No accidents in the past 7 days - Walking Same score based on distance walked: 0(N/A) - Wheelchair Same score based on distance traveled: 0(N/A) FUNCTIONAL STATUS: - Self-Care A. Eating Ind B. Grooming Joanna C. Bathing modA D. Dressing - [place] E. Dressing - Lower modA F. Toileting [place] - Sphincter Control G. Bladder control Joanna H. Bowel control Joanna - Transfers Control I. Bed/Chair/Wheelchair modA J. Toilet modA K. Tub/Shower modA - Locomotion L. Walk/Wheelchair (B) modA M. Stairs ADNO - Communication N. Comprehension (B) Joanna O. Expression (B) Joanna - Social Cognition P. Social Interaction Ind Q. Problem Solving Joanna R. Memory Joanna - Endurance Fair - Balance Fair - Safety Awareness Fair QI SCORES: - Self-Care A. Eating 04-Supervision or touching assistance B. Oral hygiene 03-Partial/moderate assistance C. Toileting hygiene 88-Not attempted due to medical condition or safety concerns E. Shower/bathe self 88-Not attempted due to medical condition or safety concerns F. Upper body dressing 02-Substantial/maximal assistance G. Lower body dressing 02-Substantial/maximal assistance H. Putting on/taking off footwear 88-Not attempted due to medical condition or safety concerns - Mobility A. Roll left and right 03-Partial/moderate assistance B. Sit to lying 03-Partial/moderate assistance C. Lying to sitting on side of bed 03-Partial/moderate assistance D. Sit to stand 03-Partial/moderate assistance E. Chair/krw-of-vgosz transfer 02-Substantial/maximal assistance F. Toilet transfer 88-Not attempted due to medical condition or safety concerns G. Car transfer 88-Not attempted due to medical condition or safety concerns I. Walk 10 feet 88-Not attempted due to medical condition or safety concerns J. Walk 50 feet with two turns 88-Not attempted due to medical condition or safety concerns K. Walk 150 feet 88-Not attempted due to medical condition or safety concerns L. Walking 10 feet on uneven surfaces 88-Not attempted due to medical condition or safety concerns M. 1 step (curb) 88-Not attempted due to medical condition or safety concerns N. 4 steps 88-Not attempted due to medical condition or safety concerns O. 12 steps 88-Not attempted due to medical condition or safety concerns P. Picking up object 88-Not attempted due to medical condition or safety concerns R. Wheel 50 feet with two turns 88-Not attempted due to medical condition or safety concerns S. Wheel 150 feet 88-Not attempted due to medical condition or safety concerns - Bladder and Bowel Bladder continence Bowel continence - Endurance Fair - Balance Fair - Safety Awareness Fair CURRENT [facility]. DEFICITS: Self-Care, Mobility, Endurance, Balance, and Safety Awareness SIGNATURE PANEL: (CDT)
[2022-01-04] MEDS: MELATONIN 5 MG TABLET PO PRN (20:03)
[2022-01-04] MEDS: AMLODIPINE 10 MG TAB PO SCH (20:03)
[2022-01-05] MEDS: LEVOTHYROXINE SOD 0.088 MG TAB PO SCH (05:33)
[2022-01-05] MEDS: carvediloL 25 MG TAB PO SCH ×2 (05:34→16:53)
[2022-01-05 06:16] LABS: Absolute Lymphocytes (CBC) 1.9 K/uL (0.7-4.9); Hematocrit 29.2 % (36.0-45.0); Lymphocytes % 27.3 % (15.3-44.8); MPV 7.3 fL (7.6-11.3); RBC Red Blood Cell Count 3.04 M/uL (3.86-4.86)
[2022-01-05 06:33] LABS: Potassium 3.9 mmol/L (3.5-5.1)
[2022-01-05] MEDS: CEFUROXIME 250 MG TAB PO SCH ×2 (07:33→19:56)
[2022-01-05] MEDS: ENOXAPARIN 40 MG/0.4 ML SQ SCH (07:33)
[2022-01-05] MEDS: PANTOPRAZOLE 40MG TABLET PO SCH (07:33)
[2022-01-05] MEDS: DOCUSATE NA 100 MG CAP PO SCH ×2 (07:33→08:00)
[2022-01-05] MEDS: JUVEN PACKET PO SCH ×2 (07:34→19:57)
[2022-01-05] MEDS: CRANBERRY FRUIT EXTRACT 400 MG CAP PO SCH ×2 (07:34→19:56)
[2022-01-05] MEDS: ASPIRIN EC 81 MG TAB PO SCH (07:34)
[2022-01-05] MEDS: FE SULF/FA/VIT B COMP & C TAB PO SCH (07:34)
[2022-01-05] MEDS: GABAPENTIN 100 MG CAP PO SCH ×2 (07:34→19:56)
[2022-01-05] MEDS: EZETIMIBE 10 MG TAB PO SCH (07:35)
[2022-01-05] MEDS: TRAMADOL HCL 50 MG TAB PO PRN ×2 (07:36→21:46)
[2022-01-05] MEDS: SODIUM CHLORIDE 1 GM TAB PO SCH (07:48)
[2022-01-05] MEDS: methocarbamoL 500 MG TAB PO PRN ×2 (09:02→18:44)
[2022-01-05] MEDS: AMLODIPINE 10 MG TAB PO SCH (19:56)
[2022-01-05] MEDS: MELATONIN 5 MG TABLET PO PRN (21:46)
--- NOTE | 2022-01-05 22:44 | P.PN ---
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 SHE ALSO HAD PAT SO SHE IS ON SMALL DOS OF B ALENA. WE REDUCED B ALENA SHE HAD ORTHOSTASIS. SHE WAS ON FLUID RESTRICTION SHE HAS SIADH AND SODIUM IS ABOUT 130. SHE NOW WILL BE OFF RESTRICTION SODIUM DID NOT GO ANY HIGHER THAN 130. I WILL WATCH HER SODIUM EVERY OTHER DAY. SHE HAS THIGH PAIN ON L SIDE AT NIGHT. SHE DOES NOT HAVE MUCH CRAMPS FEELS BETTER. WILL DO PT. SHE STILL HAS PAIN AT NIGHT. OTHERWISE STABLE. PAIN IS LOT BETTER WITH ONE TRAMAMDOL AT NIGHT. SHE WILL ADD TYLENOL IF NEED. SHE HAS TO HAVE ABD BINDER AND LEG STOCKINGS TO AVOID ORTHOSTASIS SYMPTOMS. I TALKED TO HER ABOUTPYRIDOSTIGMIN. I WILL HAVE TO TAPER OF COREG FOR ME TO BE ABLE TO USE IT Physical Examination - Vital Signs Temperature: 98.6 F Blood Pressure: 139/70 Pulse: 66 Respirations: 16 Pulse Ox (%): 100 - Physical Exam General: Oriented x3, Mild distress HEENT: Atraumatic, PERRLA, EOMI Neck: Supple, JVD not distended Respiratory: Clear to auscultation bilaterally, Normal air movement Cardiovascular: Regular rate/rhythm, Normal S1 S2 Gastrointestinal: Normal bowel sounds, No tenderness Musculoskeletal: No tenderness Integumentary: No rashes Neurological: Normal speech, Normal tone, Normal affect Lymphatics: No axilla or inguinal lymphadenopathy - Studies Laboratory Data (last 24 hrs) 01/05/22 06:07: Sodium 132 L, Potassium 3.9, BUN 27 H, Creatinine 0.74, Glucose 105 01/05/22 06:07: WBC 6.8 D, Hgb 10.0 L, Hct 29.2 L, Plt Count 376 Medications List Reviewed: Yes Assessment And Plan - Current Problems (Diagnosis) (1) Orthostasis Current Visit: Yes Status: Acute Plan: SHE WAS ON FLUID RESTRICTION SHE HAS SIADH AND SODIUM IS ABOUT 130. SHE NOW WILL BE OFF RESTRICTION SODIUM DID NOT GO ANY HIGHER THAN 130. I WILL WATCH HER SODIUM EVERY OTHER DAY. WILL REDO BP CHECK DAILY. ORTHOSTASIS. BP DAILY CHECK. LAB RTN. HPI WILL TRY PYRIDOSTIGMINE AFTER GETING OFF CORG. (2) SIADH (syndrome of inappropriate ADH production) Current Visit: No Status: Acute Plan: CHECK QOD SODIUM. (3) SVT (supraventricular tachycardia) Current Visit: No Status: Acute Plan: CONT B ALENA. (4) HTN (hypertension) Current Visit: No Status: Chronic Plan: WILL TRY SPIRONOLACTONE ONCE ORTHOSTASIS IS WELL CONTROLLED IF NEED TO. CONINUE AMLODIPINE AND COREG. Qualifiers: (5) Hip pain Current Visit: Yes Status: Acute Plan: CONTINU PAIN MDS MODIFIED. TRAMADOLQHS WITH TYELNOL HELPS A LOT.
[2022-01-06] MEDS: methocarbamoL 500 MG TAB PO PRN ×3 (04:20→19:45)
[2022-01-06] MEDS: carvediloL 6.25 MG TAB PO SCH ×2 (05:43→17:13)
[2022-01-06] MEDS: LEVOTHYROXINE SOD 0.088 MG TAB PO SCH (05:43)
[2022-01-06] MEDS: PANTOPRAZOLE 40MG TABLET PO SCH (06:56)
[2022-01-06] MEDS: ENOXAPARIN 40 MG/0.4 ML SQ SCH (06:56)
[2022-01-06] MEDS: CEFUROXIME 250 MG TAB PO SCH ×2 (08:07→19:46)
[2022-01-06] MEDS: FE SULF/FA/VIT B COMP & C TAB PO SCH (08:10)
[2022-01-06] MEDS: EZETIMIBE 10 MG TAB PO SCH (08:10)
[2022-01-06] MEDS: ASPIRIN EC 81 MG TAB PO SCH (08:10)
[2022-01-06] MEDS: GABAPENTIN 100 MG CAP PO SCH ×2 (08:11→19:45)
[2022-01-06] MEDS: TRAMADOL HCL 50 MG TAB PO PRN ×2 (08:11→22:07)
[2022-01-06] MEDS: CRANBERRY FRUIT EXTRACT 400 MG CAP PO SCH ×2 (08:11→19:43)
[2022-01-06] MEDS: DOCUSATE NA 100 MG CAP PO SCH (08:11)
[2022-01-06] MEDS: JUVEN PACKET PO SCH ×2 (08:12→19:47)
[2022-01-06] MEDS: LOSARTAN POTASSIUM 50 MG TABLET PO SCH (08:18)
--- NOTE | 2022-01-06 17:46 | P.PN ---
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 SHE ALSO HAD PAT SO SHE IS ON SMALL DOS OF B ALENA. WE REDUCED B ALENA SHE HAD ORTHOSTASIS. SHE WAS ON FLUID RESTRICTION SHE HAS SIADH AND SODIUM IS ABOUT 130. SHE NOW WILL BE OFF RESTRICTION SODIUM DID NOT GO ANY HIGHER THAN 130. I WILL WATCH HER SODIUM EVERY OTHER DAY. SHE HAS THIGH PAIN ON L SIDE AT NIGHT. SHE DOES NOT HAVE MUCH CRAMPS FEELS BETTER. WILL DO PT. SHE IS DONIG LOT BETTER. CONTINUE PT PAIN CONTROL SHE HAS AGREED TO TRY PYRIDOSTIGMINE. Physical Examination - Vital Signs Temperature: 98.6 F Blood Pressure: 149/70 Pulse: 72 Respirations: 16 Pulse Ox (%): 96 - Physical Exam General: Oriented x3, Mild distress HEENT: Atraumatic, PERRLA, EOMI Neck: Supple, JVD not distended Respiratory: Clear to auscultation bilaterally, Normal air movement Cardiovascular: Regular rate/rhythm, Normal S1 S2 Gastrointestinal: Normal bowel sounds, No tenderness Musculoskeletal: No tenderness Integumentary: No rashes Neurological: Normal speech, Normal tone, Normal affect Lymphatics: No axilla or inguinal lymphadenopathy - Studies Medications List Reviewed: Yes Assessment And Plan - Current Problems (Diagnosis) (1) Orthostasis Current Visit: Yes Status: Acute Plan: SHE WAS ON FLUID RESTRICTION SHE HAS SIADH AND SODIUM IS ABOUT 130. SHE NOW WILL BE OFF RESTRICTION SODIUM DID NOT GO ANY HIGHER THAN 130. I WILL WATCH HER SODIUM EVERY OTHER DAY. WILL REDO BP CHECK DAILY. ORTHOSTASIS. BP DAILY CHECK. LAB RTN. HPI WILL TRY PYRIDOSTIGMINE AFTER GETING OFF CORG. I WILL TRY ABOVE AFTER I TAPER OFF COREG. (2) SIADH (syndrome of inappropriate ADH production) Current Visit: No Status: Acute Plan: CHECK QOD SODIUM. (3) SVT (supraventricular tachycardia) Current Visit: No Status: Acute Plan: CONT B ALENA. (4) HTN (hypertension) Current Visit: No Status: Chronic Plan: WILL TRY SPIRONOLACTONE ONCE ORTHOSTASIS IS WELL CONTROLLED IF NEED TO. CONINUE AMLODIPINE AND COREG. Qualifiers: (5) Hip pain Current Visit: Yes Status: Acute Plan: CONTINU PAIN MDS MODIFIED. TRAMADOLQHS WITH TYELNOL HELPS A LOT.
--- NOTE | 2022-01-06 18:13 | R.PN ---
PROGRESS NOTES ENCOUNTER DATE AND TIME: 01/06/2022 18:09 (CDT) NAME JOSE JAIME DATE OF : 1945 DATE OF ADMISSION: 12/31/2021 13:13 (CDT) LEFT HIP FRACTURECHIEF COMPLAINT: Left hip fracture SUBJECTIVE: Pt denied any depression. Pt denied any Shortness of Breath. Very elevated blood pressures. Increased Amlodipine to 10 mg daily from 5 mg. WBC 6.8, Hgb 10.0, Plt 376. Na 132, K 3.9, glucose 113, Mg 2.0, prealbumin 11.2. UA nitrite +, Estera se 1+, WBC >50, bacteria 20-50. Initial cultures 4+alpha streptococci. E.Coli identified, pansensitiv e. On ceftin 250 mg bid started 01-02-22. Ambulated a total of 500' with standby assistance using a rolling walker. Self propelled wheelchair 250' with cmodified independence.. VITAL SIGNS Temperature: 98.6 F SBP/DBP: 149/70 Pulse: 72 Resp: 16 MEDICATION ALLERGIES: CIPROFLOXACIN ENVIRONMENTAL ALLERGIES: - Substance Allergies None Known - Other Allergies None Known NURSING: - Shower allowing shower - Skin care per protocol PRECAUTIONS: - Weight Bearing Precaution TTWB left LE ACTIVITIES OOB only with supervision THERAPIES: - Dietary and Nutrition Adequate Nutrition. Nutritional Education. Nutritional Supplements. Evaluate and Treat. - Occupational Therapy Cognitive Retraining. Patient needs Occupational Therapy for a daily minimum of 1.5 hours at least 5 out of 7 days, to improve Activities of Daily Living, including: Eating, Grooming, Bathing, Dressing, Toileting, Toilet Transfers, Community Reintegration, Higher functional activities, Adaptive Equipme nt, Splinting, Household Tasks, and Other activities as determined. Visual Perceptual Training. Evalu ate and Treat. Patient/Family Education. Safety Awareness. - Speech Therapy Memory Strategies. Patient needs Speech Therapy for a daily minimum of 1.5 hours at least 5 out of 7 days, to improve: Swallowing, Cognition, Language Skills, and Compensatory Strategies. Receptive Lang uage Skills. Speech Intelligibility Training. Evaluate and Treat. Expressive Language Skills. - Physical Therapy Patient needs Physical Therapy for a daily minimum of 1.5 hours at least 5 out of 7 days, to improve: Mobility, Strengthening, Transfers, Stretching, ROM, Endurance, Ability to manage stairs, Gait, and Balance. Mobility Training. Safety Awareness. Patient/Family Education. Evaluate and Treat. PHYSICAL EXAM - Gen Alert and awake Lying in bed No apparent distress Oriented to: person, time, and place - Skin No breakdown No abnormalities - Eyes No abnormalities - ENMT No abnormalities - Neck No abnormalities - CVS RRR - Chest No abnormalities - Resp Clear to auscultation - Abd Soft - GI Non distended Deferred - No abnormalities - Ext Left hip surgical site has good hemostasis. - MSK 4+/5 weakness in left lower extremity - Neuro 4/5 strength left lower extremity. - Psych No abnormalities ASSESSMENT: Pt. is a 76 yo Right-handed female.On 12/25/2021 she was admitted to [facility] with kalie gnosis LEFT HIP FRACTURE.Her impairment category is Orthopaedic Disorders 08 - Unilateral Hip Fractu re (05.08).Pre-morbidly, Pt. was independent/mod-I in Locomotion, Safety Awareness, Social Cognition, and Balance; and she had good Sphincter Control, Self-Care, Endurance, and Communication.Currently, she has deficits of Locomotion, Safety Awareness, Social Cognition, Transfers Control, Sphincter Cont rol, Self-Care, Communication, Endurance, and Balance.Pt. is now referred to [facility] for acute in-patient rehabilitation in order to maximize patient's functional independence in activities of daily living, strength, ROM, and mobility.- Rehab Goal Patient has realistic goal of being discharged at assistance level 7-Ind to reside at Home with Fami ly/Relatives. MDM/PLAN: - Physical Therapy Decreased range of motion - to improve, our physical therapists will perform initial evaluation of p t's status upon admission and devise an individualized program for increasing patient's Range of Benny on. Gait dysfunction - to improve, our physical therapists will perform initial evaluation of pt's statu s upon admission and devise an individualized program for Gait Training, and Wheel Chair mobility Inability to transfer - to improve, our physical therapists will perform initial evaluation of pt's status upon admission and devise an individualized program for Bed mobility Need for home safety evaluation - to improve, our physical therapists will perform initial evaluatio n of pt's status upon admission and devise an individualized program for Home Evaluation Need in caregiver upon discharge - to improve, our physical therapists will perform initial evaluati on of pt's status upon admission and devise an individualized program for Caregiver Training New precaution - to improve, our physical therapists will perform initial evaluation of pt's status upon admission and devise an individualized program for Patient precaution education Poor balance - to improve, our physical therapists will perform initial evaluation of pt's status up on admission and devise an individualized program for Balance Training Poor endurance - to improve, our physical therapists will perform initial evaluation of pt's status upon admission and devise an individualized program for Endurance Training Weakness - to improve, our physical therapists will perform initial evaluation of pt's status upon a dmission and devise an individualized program for Aquatic Therapy, Neuromuscular Reeducation, and Str engthening Achieving independence - to improve, our physical therapists will perform initial evaluation of pt's status upon admission and devise an individualized program for Community Reintegration Activities - Occupational Therapy ADL deficits - to improve, our occupation therapists will perform initial evaluation of pt's status upon admission and devise an individualized program for Bathing, Bed mobility, Community Reintegratio n, Cooking, Dressing, Eating, Fine Motor Skills, Grooming, Homemaking, Kitchen Mobility, Laundry, Pat ient Education, Safety Awareness, Splinting - Positioning, Transfers(Toilet, Tub, Shower), and Wheel Chair Management Cognitive deficits - to improve, our occupation therapists will perform initial evaluation of pt's s tatus upon admission and devise an individualized program for Cognition - orientation Need for intensive care ambulance paramedic - to improve, our occupation therapists will perform initial evaluation of pt's status upon admission and devise an individualized program for Caregiver Training Weakness - to improve, our occupation therapists will perform initial evaluation of pt's status upon admission and devise an individualized program for Aquatic Therapy, Balance, Endurance, UE ROM, and UE strengthening - Other See attached MAR (Medication Administration Record) - Anterior Hip Precaution No abduction No active extension No adduction across midline No external rotation No hip flexion >90 degrees No internal rotation - Diet - Liquid Texture Continue Regular - Tube Feed Continue N/A - Diet Type Continue Regular - Posterior Hip Precaution No adduction across midline No external rotation No hip flexion >90 degrees No internal rotation No wheel chair propulsion - Weight Bearing Precaution TTWB left LE - Skin care per protocol - Diet - Solid Texture Continue Regular - Shower allowing shower FUNCTIONAL STATUS: UPDATED AT WEEKLY TEAM CONFERENCE - Bladder Same accident frequency: 7-Ind - No accidents in the past 7 days - Bowel Same accident frequency: 7-Ind - No accidents in the past 7 days - Walking Same score based on distance walked: 0(N/A) - Wheelchair Same score based on distance traveled: 0(N/A) FUNCTIONAL STATUS: - Self-Care A. Eating Ind B. Grooming Joanna C. Bathing modA D. Dressing - [place] E. Dressing - Lower modA F. Toileting [place] - Sphincter Control G. Bladder control Joanna H. Bowel control Joanna - Transfers Control I. Bed/Chair/Wheelchair modA J. Toilet modA K. Tub/Shower modA - Locomotion L. Walk/Wheelchair (B) modA M. Stairs ADNO - Communication N. Comprehension (B) Joanna O. Expression (B) Joanna - Social Cognition P. Social Interaction Ind Q. Problem Solving Joanna R. Memory Joanna - Endurance Fair - Balance Fair - Safety Awareness Fair QI SCORES: - Self-Care A. Eating 04-Supervision or touching assistance B. Oral hygiene 03-Partial/moderate assistance C. Toileting hygiene 88-Not attempted due to medical condition or safety concerns E. Shower/bathe self 88-Not attempted due to medical condition or safety concerns F. Upper body dressing 02-Substantial/maximal assistance G. Lower body dressing 02-Substantial/maximal assistance H. Putting on/taking off footwear 88-Not attempted due to medical condition or safety concerns - Mobility A. Roll left and right 03-Partial/moderate assistance B. Sit to lying 03-Partial/moderate assistance C. Lying to sitting on side of bed 03-Partial/moderate assistance D. Sit to stand 03-Partial/moderate assistance E. Chair/[id number] transfer 02-Substantial/maximal assistance F. Toilet transfer 88-Not attempted due to medical condition or safety concerns G. Car transfer 88-Not attempted due to medical condition or safety concerns I. Walk 10 feet 88-Not attempted due to medical condition or safety concerns J. Walk 50 feet with two turns 88-Not attempted due to medical condition or safety concerns K. Walk 150 feet 88-Not attempted due to medical condition or safety concerns L. Walking 10 feet on uneven surfaces 88-Not attempted due to medical condition or safety concerns M. 1 step (curb) 88-Not attempted due to medical condition or safety concerns N. 4 steps 88-Not attempted due to medical condition or safety concerns O. 12 steps 88-Not attempted due to medical condition or safety concerns P. Picking up object 88-Not attempted due to medical condition or safety concerns R. Wheel 50 feet with two turns 88-Not attempted due to medical condition or safety concerns S. Wheel 150 feet 88-Not attempted due to medical condition or safety concerns - Bladder and Bowel Bladder continence Bowel continence - Endurance Fair - Balance Fair - Safety Awareness Fair CURRENT [facility]. DEFICITS: Self-Care, Mobility, Endurance, Balance, and Safety Awareness SIGNATURE PANEL: (CDT)
[2022-01-06] MEDS: ACETAMINOPHEN 500 MG TAB PO PRN (19:44)
[2022-01-06] MEDS: AMLODIPINE 10 MG TAB PO SCH (19:45)
[2022-01-06] MEDS: MELATONIN 5 MG TABLET PO PRN (22:07)
[2022-01-07 04:18] LABS: Absolute Lymphocytes (CBC) 1.8 K/uL (0.7-4.9); Hematocrit 28.4 % (36.0-45.0); MPV 7.1 fL (7.6-11.3); RBC Red Blood Cell Count 2.96 M/uL (3.86-4.86)
[2022-01-07] MEDS: LEVOTHYROXINE SOD 0.088 MG TAB PO SCH (05:29)
[2022-01-07] MEDS: carvediloL 6.25 MG TAB PO SCH ×2 (05:29→17:06)
[2022-01-07] MEDS: TRAMADOL HCL 50 MG TAB PO PRN ×2 (07:53→22:10)
[2022-01-07] MEDS: JUVEN PACKET PO SCH ×2 (08:00→20:11)
[2022-01-07] MEDS: CRANBERRY FRUIT EXTRACT 400 MG CAP PO SCH ×2 (08:19→20:10)
[2022-01-07] MEDS: FE SULF/FA/VIT B COMP & C TAB PO SCH (08:19)
[2022-01-07] MEDS: DOCUSATE NA 100 MG CAP PO SCH (08:19)
[2022-01-07] MEDS: PANTOPRAZOLE 40MG TABLET PO SCH (08:19)
[2022-01-07] MEDS: ASPIRIN EC 81 MG TAB PO SCH (08:19)
[2022-01-07] MEDS: EZETIMIBE 10 MG TAB PO SCH (08:19)
[2022-01-07] MEDS: GABAPENTIN 100 MG CAP PO SCH ×2 (08:19→20:10)
[2022-01-07] MEDS: LOSARTAN POTASSIUM 50 MG TABLET PO SCH (08:19)
[2022-01-07] MEDS: ENOXAPARIN 40 MG/0.4 ML SQ SCH (08:20)
[2022-01-07] MEDS: CEFUROXIME 250 MG TAB PO SCH ×2 (08:22→20:09)
[2022-01-07] MEDS: methocarbamoL 500 MG TAB PO PRN ×2 (09:58→20:10)
--- NOTE | 2022-01-07 13:00 | P.PN ---
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 SHE ALSO HAD PAT SO SHE IS ON SMALL DOS OF B ALENA. WE REDUCED B ALENA SHE HAD ORTHOSTASIS. SHE WAS ON FLUID RESTRICTION SHE HAS SIADH AND SODIUM IS ABOUT 130. SHE NOW WILL BE OFF RESTRICTION SODIUM DID NOT GO ANY HIGHER THAN 130. I WILL WATCH HER SODIUM EVERY OTHER DAY. SHE HAS THIGH PAIN ON L SIDE AT NIGHT. SHE DOES NOT HAVE MUCH CRAMPS FEELS BETTER. WILL DO PT. SHE IS DONIG LOT BETTER. CONTINUE PT PAIN CONTROL SHE HAS AGREED TO TRY PYRIDOSTIGMINE. WALKING WITH PT WALKER AND STANDBY ASSISTANCE. TENDS TO FALL WITH SPASMS. Physical Examination - Vital Signs Temperature: 98.0 F Blood Pressure: 149/76 Pulse: 73 Respirations: 16 Pulse Ox (%): 98 - Physical Exam General: Oriented x3, Mild distress, Moderate distress HEENT: Atraumatic, PERRLA, EOMI Neck: Supple, JVD not distended Respiratory: Clear to auscultation bilaterally, Normal air movement Cardiovascular: Regular rate/rhythm, Normal S1 S2 Gastrointestinal: Normal bowel sounds, No tenderness Musculoskeletal: No tenderness Integumentary: No rashes Neurological: Normal speech, Normal tone, Normal affect Lymphatics: No axilla or inguinal lymphadenopathy - Studies Laboratory Data (last 24 hrs) 01/07/22 04:08: Sodium 133 L, Potassium 4.0, BUN 25 H, Creatinine 0.83, Glucose 105 01/07/22 04:08: WBC 6.3, Hgb 9.8 L, Hct 28.4 L, Plt Count 364 Medications List Reviewed: Yes Assessment And Plan - Current Problems (Diagnosis) (1) Orthostasis Current Visit: Yes Status: Acute Plan: SHE WAS ON FLUID RESTRICTION SHE HAS SIADH AND SODIUM IS ABOUT 130. SHE NOW WILL BE OFF RESTRICTION SODIUM DID NOT GO ANY HIGHER THAN 130. I WILL WATCH HER SODIUM EVERY OTHER DAY. WILL REDO BP CHECK DAILY. ORTHOSTASIS. BP DAILY CHECK. LAB RTN. HPI WILL TRY PYRIDOSTIGMINE AFTER GETING OFF CORG. I WILL TRY ABOVE AFTER I TAPER OFF COREG. WILL START IT TOMORROW AFTER STOPPING COREG. (2) SIADH (syndrome of inappropriate ADH production) Current Visit: No Status: Acute Plan: CHECK QOD SODIUM. (3) SVT (supraventricular tachycardia) Current Visit: No Status: Acute Plan: CONT B ALENA. (4) HTN (hypertension) Current Visit: No Status: Chronic Plan: WILL TRY SPIRONOLACTONE ONCE ORTHOSTASIS IS WELL CONTROLLED IF NEED TO. CONINUE AMLODIPINE AND COREG. Qualifiers: (5) Hip pain Current Visit: Yes Status: Acute Plan: CONTINU PAIN MDS MODIFIED. TRAMADOLQHS WITH TYELNOL HELPS A LOT.
--- NOTE | 2022-01-07 17:54 | R.PN ---
PROGRESS NOTES ENCOUNTER DATE AND TIME: 01/07/2022 17:49 (CDT) NAME JOSE JAIME DATE OF : 1945 DATE OF ADMISSION: 12/31/2021 13:13 (CDT) LEFT HIP FRACTURECHIEF COMPLAINT: Left hip fracture SUBJECTIVE: Pt denied any depression. Pt denied any Shortness of Breath. Very elevated blood pressures. Increased Amlodipine to 10 mg daily from 5 mg. WBC 6.3, Hgb 9.8, Plt 364. Na 133, K 4.0, [id number], Mg 2.0, prealbumin 11.2. UA nitrite +, Esteras e 1+, WBC >50, bacteria 20-50. Initial cultures 4+alpha streptococci. E.Coli identified, pansensitive . On ceftin 250 mg bid started 01-02-22. Ambulated a total of 310' with standby assistance using a rolling walker. Covid-19 test is negative. VITAL SIGNS Temperature: 98.0 F SBP/DBP: 157/74 Pulse: 75 Resp: 16 MEDICATION ALLERGIES: CIPROFLOXACIN ENVIRONMENTAL ALLERGIES: - Substance Allergies None Known - Other Allergies None Known NURSING: - Shower allowing shower - Skin care per protocol PRECAUTIONS: - Weight Bearing Precaution TTWB left LE ACTIVITIES OOB only with supervision THERAPIES: - Dietary and Nutrition Adequate Nutrition. Nutritional Education. Nutritional Supplements. Evaluate and Treat. - Occupational Therapy Cognitive Retraining. Patient needs Occupational Therapy for a daily minimum of 1.5 hours at least 5 out of 7 days, to improve Activities of Daily Living, including: Eating, Grooming, Bathing, Dressing, Toileting, Toilet Transfers, Community Reintegration, Higher functional activities, Adaptive Equipme nt, Splinting, Household Tasks, and Other activities as determined. Visual Perceptual Training. Evalu ate and Treat. Patient/Family Education. Safety Awareness. - Speech Therapy Memory Strategies. Patient needs Speech Therapy for a daily minimum of 1.5 hours at least 5 out of 7 days, to improve: Swallowing, Cognition, Language Skills, and Compensatory Strategies. Receptive Lang uage Skills. Speech Intelligibility Training. Evaluate and Treat. Expressive Language Skills. - Physical Therapy Patient needs Physical Therapy for a daily minimum of 1.5 hours at least 5 out of 7 days, to improve: Mobility, Strengthening, Transfers, Stretching, ROM, Endurance, Ability to manage stairs, Gait, and Balance. Mobility Training. Safety Awareness. Patient/Family Education. Evaluate and Treat. PHYSICAL EXAM - Gen Alert and awake Lying in bed No apparent distress Oriented to: person, time, and place - Skin No breakdown No abnormalities - Eyes No abnormalities - ENMT No abnormalities - Neck No abnormalities - CVS RRR - Chest No abnormalities - Resp Clear to auscultation - Abd Soft - GI Non distended Deferred - No abnormalities - Ext Left hip surgical site has good hemostasis. - MSK 4+/5 weakness in left lower extremity - Neuro 4/5 strength left lower extremity. - Psych No abnormalities ASSESSMENT: Pt. is a 76 yo Right-handed female.On 12/25/[address] [facility] with kalie gnosis LEFT HIP FRACTURE.Her impairment category is Orthopaedic Disorders 08 - Unilateral Hip Fractu re (05.08).Pre-morbidly, Pt. was independent/mod-I in Locomotion, Safety Awareness, Social Cognition, and Balance; and she had good Sphincter Control, Self-Care, Endurance, and Communication.Currently, she has deficits of Locomotion, Safety Awareness, Social Cognition, Transfers Control, Sphincter Cont rol, Self-Care, Communication, Endurance, and Balance.Pt. is now referred to [facility] for acute in-patient rehabilitation in order to maximize patient's functional independence in activities of daily living, strength, ROM, and mobility.- Rehab Goal Patient has realistic goal of being discharged at assistance level 7-Ind to reside at Home with Fami ly/Relatives. MDM/PLAN: - Physical Therapy Decreased range of motion - to improve, our physical therapists will perform initial evaluation of p t's status upon admission and devise an individualized program for increasing patient's Range of Benny on. Gait dysfunction - to improve, our physical therapists will perform initial evaluation of pt's statu s upon admission and devise an individualized program for Gait Training, and Wheel Chair mobility Inability to transfer - to improve, our physical therapists will perform initial evaluation of pt's status upon admission and devise an individualized program for Bed mobility Need for home safety evaluation - to improve, our physical therapists will perform initial evaluatio n of pt's status upon admission and devise an individualized program for Home Evaluation Need in caregiver upon discharge - to improve, our physical therapists will perform initial evaluati on of pt's status upon admission and devise an individualized program for Caregiver Training New precaution - to improve, our physical therapists will perform initial evaluation of pt's status upon admission and devise an individualized program for Patient precaution education Poor balance - to improve, our physical therapists will perform initial evaluation of pt's status up on admission and devise an individualized program for Balance Training Poor endurance - to improve, our physical therapists will perform initial evaluation of pt's status upon admission and devise an individualized program for Endurance Training Weakness - to improve, our physical therapists will perform initial evaluation of pt's status upon a dmission and devise an individualized program for Aquatic Therapy, Neuromuscular Reeducation, and Str engthening Achieving independence - to improve, our physical therapists will perform initial evaluation of pt's status upon admission and devise an individualized program for Community Reintegration Activities - Occupational Therapy ADL deficits - to improve, our occupation therapists will perform initial evaluation of pt's status upon admission and devise an individualized program for Bathing, Bed mobility, Community Reintegratio n, Cooking, Dressing, Eating, Fine Motor Skills, Grooming, Homemaking, Kitchen Mobility, Laundry, Pat ient Education, Safety Awareness, Splinting - Positioning, Transfers(Toilet, Tub, Shower), and Wheel Chair Management Cognitive deficits - to improve, our occupation therapists will perform initial evaluation of pt's s tatus upon admission and devise an individualized program for Cognition - orientation Need for medicare specialist - to improve, our occupation therapists will perform initial evaluation of pt's status upon admission and devise an individualized program for Caregiver Training Weakness - to improve, our occupation therapists will perform initial evaluation of pt's status upon admission and devise an individualized program for Aquatic Therapy, Balance, Endurance, UE ROM, and UE strengthening - Other See attached MAR (Medication Administration Record) - Anterior Hip Precaution No abduction No active extension No adduction across midline No external rotation No hip flexion >90 degrees No internal rotation - Diet - Liquid Texture Continue Regular - Tube Feed Continue N/A - Diet Type Continue Regular - Posterior Hip Precaution No adduction across midline No external rotation No hip flexion >90 degrees No internal rotation No wheel chair propulsion - Weight Bearing Precaution TTWB left LE - Skin care per protocol - Diet - Solid Texture Continue Regular - Shower allowing shower FUNCTIONAL STATUS: UPDATED AT WEEKLY TEAM CONFERENCE - Bladder Same accident frequency: 7-Ind - No accidents in the past 7 days - Bowel Same accident frequency: 7-Ind - No accidents in the past 7 days - Walking Same score based on distance walked: 0(N/A) - Wheelchair Same score based on distance traveled: 0(N/A) FUNCTIONAL STATUS: - Self-Care A. Eating Ind B. Grooming Joanna C. Bathing modA D. Dressing - [place] E. Dressing - Lower modA F. Toileting [place] - Sphincter Control G. Bladder control Joanna H. Bowel control Joanna - Transfers Control I. Bed/Chair/Wheelchair modA J. Toilet modA K. Tub/Shower modA - Locomotion L. Walk/Wheelchair (B) modA M. Stairs ADNO - Communication N. Comprehension (B) Joanna O. Expression (B) Joanna - Social Cognition P. Social Interaction Ind Q. Problem Solving Joanna R. Memory Joanna - Endurance Fair - Balance Fair - Safety Awareness Fair QI SCORES: - Self-Care A. Eating 04-Supervision or touching assistance B. Oral hygiene 03-Partial/moderate assistance C. Toileting hygiene 88-Not attempted due to medical condition or safety concerns E. Shower/bathe self 88-Not attempted due to medical condition or safety concerns F. Upper body dressing 02-Substantial/maximal assistance G. Lower body dressing 02-Substantial/maximal assistance H. Putting on/taking off footwear 88-Not attempted due to medical condition or safety concerns - Mobility A. Roll left and right 03-Partial/moderate assistance B. Sit to lying 03-Partial/moderate assistance C. Lying to sitting on side of bed 03-Partial/moderate assistance D. Sit to stand 03-Partial/moderate assistance E. Chair/xax-ei-[id number] transfer 02-Substantial/maximal assistance F. Toilet transfer 88-Not attempted due to medical condition or safety concerns G. Car transfer 88-Not attempted due to medical condition or safety concerns I. Walk 10 feet 88-Not attempted due to medical condition or safety concerns J. Walk 50 feet with two turns 88-Not attempted due to medical condition or safety concerns K. Walk 150 feet 88-Not attempted due to medical condition or safety concerns L. Walking 10 feet on uneven surfaces 88-Not attempted due to medical condition or safety concerns M. 1 step (curb) 88-Not attempted due to medical condition or safety concerns N. 4 steps 88-Not attempted due to medical condition or safety concerns O. 12 steps 88-Not attempted due to medical condition or safety concerns P. Picking up object 88-Not attempted due to medical condition or safety concerns R. Wheel 50 feet with two turns 88-Not attempted due to medical condition or safety concerns S. Wheel 150 feet 88-Not attempted due to medical condition or safety concerns - Bladder and Bowel Bladder continence Bowel continence - Endurance Fair - Balance Fair - Safety Awareness Fair CURRENT [facility]. DEFICITS: Self-Care, Mobility, Endurance, Balance, and Safety Awareness SIGNATURE PANEL: (CDT)
[2022-01-07] MEDS: AMLODIPINE 10 MG TAB PO SCH (20:10)
[2022-01-07] MEDS: MAGNESIUM OXIDE 400 MG TAB PO SCH (20:11)
[2022-01-07] MEDS: MELATONIN 5 MG TABLET PO PRN (22:10)
[2022-01-08] MEDS: LEVOTHYROXINE SOD 0.088 MG TAB PO SCH (06:00)
[2022-01-08] MEDS: carvediloL 6.25 MG TAB PO SCH (06:00)
[2022-01-08] MEDS: PANTOPRAZOLE 40MG TABLET PO SCH (07:42)
[2022-01-08] MEDS: DOCUSATE NA 100 MG CAP PO SCH ×2 (08:00→08:18)
[2022-01-08] MEDS: TRAMADOL HCL 50 MG TAB PO PRN (08:18)
[2022-01-08] MEDS: MAGNESIUM OXIDE 400 MG TAB PO SCH ×2 (08:19→20:26)
[2022-01-08] MEDS: ASPIRIN EC 81 MG TAB PO SCH (08:19)
[2022-01-08] MEDS: CRANBERRY FRUIT EXTRACT 400 MG CAP PO SCH ×2 (08:19→20:26)
[2022-01-08] MEDS: JUVEN PACKET PO SCH ×2 (08:19→20:28)
[2022-01-08] MEDS: GABAPENTIN 100 MG CAP PO SCH ×2 (08:19→20:26)
[2022-01-08] MEDS: EZETIMIBE 10 MG TAB PO SCH (08:20)
[2022-01-08] MEDS: FE SULF/FA/VIT B COMP & C TAB PO SCH (08:20)
[2022-01-08] MEDS: LOSARTAN POTASSIUM 50 MG TABLET PO SCH (08:20)
[2022-01-08] MEDS: ENOXAPARIN 40 MG/0.4 ML SQ SCH (08:21)
[2022-01-08] MEDS: PYRIDOSTIGMINE 60 MG TABLET PO SCH ×2 (08:21→20:26)
[2022-01-08] MEDS: methocarbamoL 500 MG TAB PO PRN (13:01)
--- NOTE | 2022-01-08 18:04 | R.PN ---
PROGRESS NOTES ENCOUNTER DATE AND TIME: 01/08/2022 17:59 (CDT) NAME JOSE JAIME DATE OF : 1945 DATE OF ADMISSION: 12/31/2021 13:13 (CDT) LEFT HIP FRACTURECHIEF COMPLAINT: Left hip fracture SUBJECTIVE: Pt denied any depression. Pt denied any Shortness of Breath. Very elevated blood pressures. Increased Amlodipine to 10 mg daily from 5 mg. WBC 6.3, Hgb 9.8, Plt 364. Na 133, K 4.0, [id number], Mg 2.0, prealbumin 11.2. UA nitrite +, Esteras e 1+, WBC >50, bacteria 20-50. Initial cultures 4+alpha streptococci. E.Coli identified, pansensitive . On ceftin 250 mg bid started 01-02-22. Ambulated a total of 500' with standby assistance using a rolling walker. Self-propelled wheelchair 2 50' with modified independence. Covid-19 test is negative. VITAL SIGNS Temperature: 97.4 F SBP/DBP: 158/75 Pulse: 71 Resp: 16 MEDICATION ALLERGIES: CIPROFLOXACIN ENVIRONMENTAL ALLERGIES: - Substance Allergies None Known - Other Allergies None Known NURSING: - Shower allowing shower - Skin care per protocol PRECAUTIONS: - Weight Bearing Precaution TTWB left LE ACTIVITIES OOB only with supervision THERAPIES: - Dietary and Nutrition Adequate Nutrition. Nutritional Education. Nutritional Supplements. Evaluate and Treat. - Occupational Therapy Cognitive Retraining. Patient needs Occupational Therapy for a daily minimum of 1.5 hours at least 5 out of 7 days, to improve Activities of Daily Living, including: Eating, Grooming, Bathing, Dressing, Toileting, Toilet Transfers, Community Reintegration, Higher functional activities, Adaptive Equipme nt, Splinting, Household Tasks, and Other activities as determined. Visual Perceptual Training. Evalu ate and Treat. Patient/Family Education. Safety Awareness. - Speech Therapy Memory Strategies. Patient needs Speech Therapy for a daily minimum of 1.5 hours at least 5 out of 7 days, to improve: Swallowing, Cognition, Language Skills, and Compensatory Strategies. Receptive Lang uage Skills. Speech Intelligibility Training. Evaluate and Treat. Expressive Language Skills. - Physical Therapy Patient needs Physical Therapy for a daily minimum of 1.5 hours at least 5 out of 7 days, to improve: Mobility, Strengthening, Transfers, Stretching, ROM, Endurance, Ability to manage stairs, Gait, and Balance. Mobility Training. Safety Awareness. Patient/Family Education. Evaluate and Treat. PHYSICAL EXAM - Gen Alert and awake Lying in bed No apparent distress Oriented to: person, time, and place - Skin No breakdown No abnormalities - Eyes No abnormalities - ENMT No abnormalities - Neck No abnormalities - CVS RRR - Chest No abnormalities - Resp Clear to auscultation - Abd Soft - GI Non distended Deferred - No abnormalities - Ext Left hip surgical site has good hemostasis. - MSK 4+/5 weakness in left lower extremity - Neuro 4/5 strength left lower extremity. - Psych No abnormalities ASSESSMENT: Pt. is a 76 yo Right-handed female.On 12/25/2021 she was admitted to [facility] with kalie gnosis LEFT HIP FRACTURE.Her impairment category is Orthopaedic Disorders 08 - Unilateral Hip Fractu re (05.08).Pre-morbidly, Pt. was independent/mod-I in Locomotion, Safety Awareness, Social Cognition, and Balance; and she had good Sphincter Control, Self-Care, Endurance, and Communication.Currently, she has deficits of Locomotion, Safety Awareness, Social Cognition, Transfers Control, Sphincter Cont rol, Self-Care, Communication, Endurance, and Balance.Pt. is now referred to [facility] for acute in-patient rehabilitation in order to maximize patient's functional independence in activities of daily living, strength, ROM, and mobility.- Rehab Goal Patient has realistic goal of being discharged at assistance level 7-Ind to reside at Home with Fami ly/Relatives. MDM/PLAN: - Physical Therapy Decreased range of motion - to improve, our physical therapists will perform initial evaluation of p t's status upon admission and devise an individualized program for increasing patient's Range of Benny on. Gait dysfunction - to improve, our physical therapists will perform initial evaluation of pt's statu s upon admission and devise an individualized program for Gait Training, and Wheel Chair mobility Inability to transfer - to improve, our physical therapists will perform initial evaluation of pt's status upon admission and devise an individualized program for Bed mobility Need for home safety evaluation - to improve, our physical therapists will perform initial evaluatio n of pt's status upon admission and devise an individualized program for Home Evaluation Need in caregiver upon discharge - to improve, our physical therapists will perform initial evaluati on of pt's status upon admission and devise an individualized program for Caregiver Training New precaution - to improve, our physical therapists will perform initial evaluation of pt's status upon admission and devise an individualized program for Patient precaution education Poor balance - to improve, our physical therapists will perform initial evaluation of pt's status up on admission and devise an individualized program for Balance Training Poor endurance - to improve, our physical therapists will perform initial evaluation of pt's status upon admission and devise an individualized program for Endurance Training Weakness - to improve, our physical therapists will perform initial evaluation of pt's status upon a dmission and devise an individualized program for Aquatic Therapy, Neuromuscular Reeducation, and Str engthening Achieving independence - to improve, our physical therapists will perform initial evaluation of pt's status upon admission and devise an individualized program for Community Reintegration Activities - Occupational Therapy ADL deficits - to improve, our occupation therapists will perform initial evaluation of pt's status upon admission and devise an individualized program for Bathing, Bed mobility, Community Reintegratio n, Cooking, Dressing, Eating, Fine Motor Skills, Grooming, Homemaking, Kitchen Mobility, Laundry, Pat ient Education, Safety Awareness, Splinting - Positioning, Transfers(Toilet, Tub, Shower), and Wheel Chair Management Cognitive deficits - to improve, our occupation therapists will perform initial evaluation of pt's s tatus upon admission and devise an individualized program for Cognition - orientation Need for school child care attendant - to improve, our occupation therapists will perform initial evaluation of pt's status upon admission and devise an individualized program for Caregiver Training Weakness - to improve, our occupation therapists will perform initial evaluation of pt's status upon admission and devise an individualized program for Aquatic Therapy, Balance, Endurance, UE ROM, and UE strengthening - Other See attached MAR (Medication Administration Record) - Anterior Hip Precaution No abduction No active extension No adduction across midline No external rotation No hip flexion >90 degrees No internal rotation - Diet - Liquid Texture Continue Regular - Tube Feed Continue N/A - Diet Type Continue Regular - Posterior Hip Precaution No adduction across midline No external rotation No hip flexion >90 degrees No internal rotation No wheel chair propulsion - Weight Bearing Precaution TTWB left LE - Skin care per protocol - Diet - Solid Texture Continue Regular - Shower allowing shower FUNCTIONAL STATUS: UPDATED AT WEEKLY TEAM CONFERENCE - Bladder Same accident frequency: 7-Ind - No accidents in the past 7 days - Bowel Same accident frequency: 7-Ind - No accidents in the past 7 days - Walking Same score based on distance walked: 0(N/A) - Wheelchair Same score based on distance traveled: 0(N/A) FUNCTIONAL STATUS: - Self-Care A. Eating Ind B. Grooming Joanna C. Bathing modA D. Dressing - [place] E. Dressing - Lower modA F. Toileting [place] - Sphincter Control G. Bladder control Joanna H. Bowel control Joanna - Transfers Control I. Bed/Chair/Wheelchair modA J. Toilet modA K. Tub/Shower modA - Locomotion L. Walk/Wheelchair (B) modA M. Stairs ADNO - Communication N. Comprehension (B) Joanna O. Expression (B) Joanna - Social Cognition P. Social Interaction Ind Q. Problem Solving Joanna R. Memory Joanna - Endurance Fair - Balance Fair - Safety Awareness Fair QI SCORES: - Self-Care A. Eating 04-Supervision or touching assistance B. Oral hygiene 03-Partial/moderate assistance C. Toileting hygiene 88-Not attempted due to medical condition or safety concerns E. Shower/bathe self 88-Not attempted due to medical condition or safety concerns F. Upper body dressing 02-Substantial/maximal assistance G. Lower body dressing 02-Substantial/maximal assistance H. Putting on/taking off footwear 88-Not attempted due to medical condition or safety concerns - Mobility A. Roll left and right 03-Partial/moderate assistance B. Sit to lying 03-Partial/moderate assistance C. Lying to sitting on side of bed 03-Partial/moderate assistance D. Sit to stand 03-Partial/moderate assistance E. Chair/[id number]-[id number] transfer 02-Substantial/maximal assistance F. Toilet transfer 88-Not attempted due to medical condition or safety concerns G. Car transfer 88-Not attempted due to medical condition or safety concerns I. Walk 10 feet 88-Not attempted due to medical condition or safety concerns J. Walk 50 feet with two turns 88-Not attempted due to medical condition or safety concerns K. Walk 150 feet 88-Not attempted due to medical condition or safety concerns L. Walking 10 feet on uneven surfaces 88-Not attempted due to medical condition or safety concerns M. 1 step (curb) 88-Not attempted due to medical condition or safety concerns N. 4 steps 88-Not attempted due to medical condition or safety concerns O. 12 steps 88-Not attempted due to medical condition or safety concerns P. Picking up object 88-Not attempted due to medical condition or safety concerns R. Wheel 50 feet with two turns 88-Not attempted due to medical condition or safety concerns S. Wheel 150 feet 88-Not attempted due to medical condition or safety concerns - Bladder and Bowel Bladder continence Bowel continence - Endurance Fair - Balance Fair - Safety Awareness Fair CURRENT [facility]. DEFICITS: Self-Care, Mobility, Endurance, Balance, and Safety Awareness SIGNATURE PANEL: (CDT)
--- NOTE | 2022-01-08 21:16 | P.PN ---
Subjective Date of Service: 01/08/22 Chief Complaint: BP, PAIN, DIZZINESS Subjective: Improving SHE IS BETTER. PAIN IS MINIMAL SHE KNOWS ABOUT CHANGES WE ARE MAKING FOR PREVNTING ORTHOSTASIS. IT IS OF LABEL USE OF PYRIDOSTIGMINE.. Physical Examination - Vital Signs Temperature: 97.4 F Blood Pressure: 158/75 Pulse: 71 Respirations: 16 Pulse Ox (%): 97 - Physical Exam General: Alert, In no apparent distress HEENT: Atraumatic, PERRLA, EOMI Neck: Supple, JVD not distended Respiratory: Clear to auscultation bilaterally, Normal air movement Cardiovascular: Regular rate/rhythm, Normal S1 S2 Gastrointestinal: Normal bowel sounds, No tenderness Musculoskeletal: No tenderness Integumentary: No rashes Neurological: Normal speech, Normal tone, Normal affect Lymphatics: No axilla or inguinal lymphadenopathy - Studies Medications List Reviewed: Yes Assessment And Plan - Current Problems (Diagnosis) (1) Orthostasis Current Visit: Yes Status: Acute Plan: USE PYRIDOSTIGMINE I TAPERED OFF COREG TO PREVENT INTERACTION. PARASYMPATHETIC STIMULATION WILL ALSO HELP AVOID PAT. (2) SIADH (syndrome of inappropriate ADH production) Current Visit: No Status: Acute Plan: CHECK QOD SODIUM. SODIUM IS ABOUT 133 NOW (3) SVT (supraventricular tachycardia) Current Visit: No Status: Acute Plan: CONT B ALENA. (4) HTN (hypertension) Current Visit: No Status: Chronic Plan: WILL TRY SPIRONOLACTONE ONCE ORTHOSTASIS IS WELL CONTROLLED IF NEED TO. CONINUE AMLODIPINE AND COREG. Qualifiers: (5) Hip pain Current Visit: Yes Status: Acute Plan: CONTINU PAIN MDS MODIFIED. TRAMADOLQHS WITH TYELNOL HELPS A LOT.
[2022-01-08] MEDS: AMLODIPINE 10 MG TAB PO SCH (22:08)
[2022-01-08] MEDS: MELATONIN 5 MG TABLET PO PRN (22:08)
[2022-01-09] MEDS: methocarbamoL 500 MG TAB PO PRN ×3 (03:03→23:47)
[2022-01-09 04:51] LABS: Absolute Lymphocytes (CBC) 1.6 K/uL (0.7-4.9); Hematocrit 28.8 % (36.0-45.0); Lymphocytes % 27.9 % (15.3-44.8); MPV 7.2 fL (7.6-11.3); RBC Red Blood Cell Count 3.01 M/uL (3.86-4.86)
[2022-01-09 05:08] LABS: Albumin 2.7 g/dL (3.4-5.0); Magnesium 2.4 mg/dL (1.8-2.4); Prealbumin 12.5 mg/dL (20-40)
[2022-01-09] MEDS: LEVOTHYROXINE SOD 0.088 MG TAB PO SCH (05:12)
[2022-01-09] MEDS: PANTOPRAZOLE 40MG TABLET PO SCH (07:14)
[2022-01-09] MEDS: TRAMADOL HCL 50 MG TAB PO PRN (07:14)
[2022-01-09] MEDS: ENOXAPARIN 40 MG/0.4 ML SQ SCH (07:14)
[2022-01-09] MEDS: ASPIRIN EC 81 MG TAB PO SCH (07:53)
[2022-01-09] MEDS: EZETIMIBE 10 MG TAB PO SCH (07:53)
[2022-01-09] MEDS: PYRIDOSTIGMINE 60 MG TABLET PO SCH ×2 (07:53→19:42)
[2022-01-09] MEDS: JUVEN PACKET PO SCH ×2 (07:53→19:43)
[2022-01-09] MEDS: LOSARTAN POTASSIUM 50 MG TABLET PO SCH (07:53)
[2022-01-09] MEDS: MAGNESIUM OXIDE 400 MG TAB PO SCH ×2 (07:53→19:43)
[2022-01-09] MEDS: DOCUSATE NA 100 MG CAP PO SCH ×2 (07:54→08:00)
[2022-01-09] MEDS: FE SULF/FA/VIT B COMP & C TAB PO SCH (07:54)
[2022-01-09] MEDS: GABAPENTIN 100 MG CAP PO SCH ×2 (07:54→19:43)
[2022-01-09] MEDS: CRANBERRY FRUIT EXTRACT 400 MG CAP PO SCH ×2 (07:54→19:43)
--- NOTE | 2022-01-09 10:17 | P.RH.PN ---
Estimated Length of Stay: 12 Expected Discharge Date: 01/12/22 Discharge Disposition Plan: Home Family Support: Yes Fpc Goal: Mobility, Transfers, Self Care Vital Signs: Last Vital Signs Temp 98.6 F 01/09/22 07:46 Pulse 65 01/09/22 07:46 Resp 18 01/09/22 08:14 BP 150/70 H 01/09/22 07:46 Pulse Ox 99 01/09/22 08:14 Laboratory: Laboratory Last Values WBC 5.7 K/uL (4.3-10.9) 01/09/22 04:27 RBC 3.01 M/uL (3.86-4.86) L 01/09/22 04:27 Hgb 9.9 g/dL (12.0-15.0) L 01/09/22 04:27 Hct 28.8 % (36.0-45.0) L 01/09/22 04:27 MCV 95.8 fL (80-100) 01/09/22 04:27 MCH 32.9 pg (27.0-35.0) 01/09/22 04:27 MCHC 34.4 g/dL (32.0-36.0) 01/09/22 04:27 RDW 13.4 % (12.1-15.2) 01/09/22 04:27 Plt Count 389 K/uL (152-406) 01/09/22 04:27 MPV 7.2 fL (7.6-11.3) L 01/09/22 04:27 Neutrophils % 52.7 % (41.7-73.7) 01/09/22 04:27 Lymphocytes % 27.9 % (15.3-44.8) 01/09/22 04:27 Monocytes % 15.4 % (3.3-12.3) H 01/09/22 04:27 Eosinophils % 2.8 % (0-4.4) 01/09/22 04:27 Basophils % 1.2 % (0-1.3) 01/09/22 04:27 Absolute Neutrophils 3.0 K/uL (1.8-8.0) 01/09/22 04:27 Absolute Lymphocytes 1.6 K/uL (0.7-4.9) 01/09/22 04:27 Absolute Monocytes 0.9 K/uL (0.1-1.3) 01/09/22 04:27 Absolute Eosinophils 0.2 K/uL (0-0.5) 01/09/22 04:27 Absolute Basophils 0.1 K/uL (0-0.5) 01/09/22 04:27 Sodium 135 mmol/L (136-145) L 01/09/22 04:27 Potassium 4.0 mmol/L (3.5-5.1) 01/09/22 04:27 Chloride 104 mmol/L (98-107) 01/09/22 04:27 Carbon Dioxide 27 mmol/L (21-32) 01/09/22 04:27 BUN 23 mg/dL (7-18) H 01/09/22 04:27 Creatinine 0.69 mg/dL (0.55-1.3) 01/09/22 04:27 Estimated GFR 83 mL/min (=/>90) L 01/09/22 04:27 Glucose 109 mg/dL (74-106) H 01/09/22 04:27 Calcium 8.3 mg/dL (8.5-10.1) L 01/09/22 04:27 Magnesium 2.4 mg/dL (1.8-2.4) 01/09/22 04:27 Albumin 2.7 g/dL (3.4-5.0) L 01/09/22 04:27 Prealbumin 12.5 mg/dL (20-40) L 01/09/22 04:27 Urine Color Yellow (Yellow) 01/01/22 17:19 Urine Appearance Cloudy (Clear) 01/01/22 17:19 Urine pH 6.5 (5.0-7.0) 01/01/22 17:19 Ur Specific [place] 1.015 (1.005-1.030) 01/01/22 17:19 Glucose (UA)(Auto) Negative (Negative) 01/01/22 17:19 Urine Ketones Trace (Negative) H 01/01/22 17:19 Urine Blood 1+ (Negative) H 01/01/22 17:19 Urine Nitrite Positive (Negative) H 01/01/22 17:19 Urine Bilirubin Negative (Negative) 01/01/22 17:19 Urine Urobilinogen 0.2 mg/dL (0.2-1.0) 01/01/22 17:19 Ur Leukocyte Esterase 1+ (Negative) H 01/01/22 17:19 Urine RBC 5-10 /HPF (NONE SEEN) H 01/01/22 17:19 Urine WBC >50 /HPF (<5) H 01/01/22 17:19 Ur Squamous Epith Cells <5 /HPF (NONE SEEN) 01/01/22 17:19 Ur Urothelial Cells Cancelled 01/01/22 16:25 Calcium Oxalate Crystal Cancelled 01/01/22 16:25 Uric Acid Crystals Cancelled 01/01/22 16:25 Triple Phos Crystals Cancelled 01/01/22 16:25 Other Crystals Cancelled 01/01/22 16:25 Amorphous Sediment Cancelled 01/01/22 16:25 Glitter Cells Cancelled 01/01/22 16:25 Urine Bacteria 20-50 /HPF (<20) H 01/01/22 17:19 Hyaline Casts Cancelled 01/01/22 16:25 Fine Granular Casts Cancelled 01/01/22 16:25 Coarse Granular Casts Cancelled 01/01/22 16:25 Waxy Casts Cancelled 01/01/22 16:25 RBC Casts Cancelled 01/01/22 16:25 WBC Casts Cancelled 01/01/22 16:25 Urine Mucus 2+ /HPF (NONE SEEN) 01/01/22 17:19 Urine Other Cancelled 01/01/22 16:25 Urine Trichomonas Cancelled 01/01/22 16:25 Urine Yeast Cancelled 01/01/22 16:25 Ur Yeast w Hyphae Cancelled 01/01/22 16:25 Urine Yeast (Budding) Cancelled 01/01/22 16:25 Urine Sperm Cancelled 01/01/22 16:25 Ur Microscopic Review Cancelled 01/01/22 17:19 Urine Culture Reflexed Not needed 01/01/22 17:19 Urine Total Volume Cancelled 01/01/22 16:25 Urine Total Protein Trace (Negative) H 01/01/22 17:19 SARS-CoV-2 Rap RNA(RT-PCR) Negative (NEGATIVE) 01/07/22 09:30 Weight: 171 lb Wound Present: No Closed Surgical Incision Present: Yes Negative Pressure Wound Therapy Present: No Physician Update: Making good overall progress with all therapy. Transfering in and out of bed independently. SBA with transfers. Walking 250' with SBA. Independent with wheelchair 250'. Requires wheelchair due to touch down requirement on the left lower extremity due to hip fracture precautions. D/C on Thursday. Summary: Patient's care plan and correction goals have been reviewed and revised as necessary. Please see the Rehabilitation Signature page for all necessary signatures.
[2022-01-09] MEDS: AMLODIPINE 10 MG TAB PO SCH (19:43)
--- NOTE | 2022-01-09 21:00 | P.PN ---
Subjective Date of Service: 01/09/22 Chief Complaint: BP, PAIN, DIZZINESS Subjective: Improving SHE IS BETTER. PAIN IS MINIMAL SHE KNOWS ABOUT CHANGES WE ARE MAKING FOR PREVNTING ORTHOSTASIS. IT IS OF LABEL USE OF PYRIDOSTIGMINE.. SHE IS FEELING LOT BETTER. Physical Examination - Vital Signs Temperature: 98 F Blood Pressure: 161/80 Pulse: 77 Respirations: 16 Pulse Ox (%): 100 - Physical Exam General: Oriented x3, Mild distress HEENT: Atraumatic, PERRLA, EOMI Neck: Supple, JVD not distended Respiratory: Clear to auscultation bilaterally, Normal air movement Cardiovascular: Regular rate/rhythm, Normal S1 S2 Gastrointestinal: Normal bowel sounds, No tenderness Musculoskeletal: No tenderness Integumentary: No rashes Neurological: Normal speech, Normal tone, Normal affect Lymphatics: No axilla or inguinal lymphadenopathy - Studies Laboratory Data (last 24 hrs) 01/09/22 04:27: Sodium 135 L, Potassium 4.0, BUN 23 H, Creatinine 0.69, Glucose 109 H, Magnesium 2.4 01/09/22 04:27: WBC 5.7, Hgb 9.9 L, Hct 28.8 L, Plt Count 389 Medications List Reviewed: Yes Assessment And Plan - Current Problems (Diagnosis) (1) Orthostasis Current Visit: Yes Status: Acute Plan: USE PYRIDOSTIGMINE I TAPERED OFF COREG TO PREVENT INTERACTION. PARASYMPATHETIC STIMULATION WILL ALSO HELP AVOID PAT. WILL DO DAILY STANDING BP WITHOUT WRAPS AND BINDER NOW. (2) SIADH (syndrome of inappropriate ADH production) Current Visit: No Status: Acute Plan: CHECK QOD SODIUM. SODIUM IS ABOUT 133 NOW NA IS 135NOW. (3) SVT (supraventricular tachycardia) Current Visit: No Status: Acute Plan: CONT B ALENA. (4) HTN (hypertension) Current Visit: No Status: Chronic Plan: WILL TRY SPIRONOLACTONE ONCE ORTHOSTASIS IS WELL CONTROLLED IF NEED TO. CONINUE AMLODIPINE AND COREG. Qualifiers: (5) Hip pain Current Visit: Yes Status: Acute Plan: CONTINU PAIN MDS MODIFIED. TRAMADOLQHS WITH TYELNOL HELPS A LOT.
[2022-01-09] MEDS: MELATONIN 5 MG TABLET PO PRN (23:47)
[2022-01-10] MEDS: LEVOTHYROXINE SOD 0.088 MG TAB PO SCH (05:23)
[2022-01-10] MEDS: PANTOPRAZOLE 40MG TABLET PO SCH (06:56)
[2022-01-10] MEDS: TRAMADOL HCL 50 MG TAB PO PRN ×2 (06:56→23:57)
[2022-01-10] MEDS: ENOXAPARIN 40 MG/0.4 ML SQ SCH (06:56)
[2022-01-10] MEDS: MAGNESIUM OXIDE 400 MG TAB PO SCH ×2 (07:43→23:21)
[2022-01-10] MEDS: JUVEN PACKET PO SCH ×2 (07:43→23:21)
[2022-01-10] MEDS: FE SULF/FA/VIT B COMP & C TAB PO SCH (07:43)
[2022-01-10] MEDS: PYRIDOSTIGMINE 60 MG TABLET PO SCH ×2 (07:43→23:21)
[2022-01-10] MEDS: LOSARTAN POTASSIUM 50 MG TABLET PO SCH (07:43)
[2022-01-10] MEDS: ASPIRIN EC 81 MG TAB PO SCH (07:43)
[2022-01-10] MEDS: GABAPENTIN 100 MG CAP PO SCH ×2 (07:44→23:22)
[2022-01-10] MEDS: CRANBERRY FRUIT EXTRACT 400 MG CAP PO SCH ×2 (07:44→20:00)
[2022-01-10] MEDS: DOCUSATE NA 100 MG CAP PO SCH ×2 (07:44→08:00)
[2022-01-10] MEDS: EZETIMIBE 10 MG TAB PO SCH (07:44)
[2022-01-10] MEDS: methocarbamoL 500 MG TAB PO PRN (13:22)
--- NOTE | 2022-01-10 15:32 | P.PN ---
Subjective Date of Service: 01/10/22 Chief Complaint: SHE IS LOT BETTER, WALKING WITH WALKER. Subjective: Improving SHE IS BETTER. PAIN IS MINIMAL SHE KNOWS ABOUT CHANGES WE ARE MAKING FOR PREVNTING ORTHOSTASIS. IT IS OF LABEL USE OF PYRIDOSTIGMINE.. SHE IS FEELING LOT BETTER. SHE IS GETTING READY TO GO HOME SOON. Physical Examination - Vital Signs Temperature: 97.4 F Blood Pressure: 149/72 Pulse: 72 Respirations: 16 Pulse Ox (%): 98 - Physical Exam General: Oriented x3, Mild distress HEENT: Atraumatic, PERRLA, EOMI Neck: Supple, JVD not distended Respiratory: Clear to auscultation bilaterally, Normal air movement Cardiovascular: Regular rate/rhythm, Normal S1 S2 Gastrointestinal: Normal bowel sounds, No tenderness Musculoskeletal: No tenderness Integumentary: No rashes Neurological: Normal speech, Normal tone, Normal affect Lymphatics: No axilla or inguinal lymphadenopathy - Studies Medications List Reviewed: Yes Assessment And Plan - Current Problems (Diagnosis) (1) Orthostasis Current Visit: Yes Status: Acute Plan: USE PYRIDOSTIGMINE I TAPERED OFF COREG TO PREVENT INTERACTION. PARASYMPATHETIC STIMULATION WILL ALSO HELP AVOID PAT. WILL DO DAILY STANDING BP WITHOUT WRAPS AND BINDER NOW. (2) SIADH (syndrome of inappropriate ADH production) Current Visit: No Status: Acute Plan: CHECK QOD SODIUM. SODIUM IS ABOUT 133 NOW NA IS 135NOW. (3) SVT (supraventricular tachycardia) Current Visit: No Status: Acute Plan: CONT B ALENA. (4) HTN (hypertension) Current Visit: No Status: Chronic Plan: WILL TRY SPIRONOLACTONE ONCE ORTHOSTASIS IS WELL CONTROLLED IF NEED TO. CONINUE AMLODIPINE AND COREG. Qualifiers: (5) Hip pain Current Visit: Yes Status: Acute Plan: CONTINU PAIN MDS MODIFIED. TRAMADOLQHS WITH TYELNOL HELPS A LOT. SP SURGERY DOING WELL. WILL WATCH BP DAILY..
[2022-01-10] MEDS: AMLODIPINE 10 MG TAB PO SCH (23:22)
[2022-01-10] MEDS: MELATONIN 5 MG TABLET PO PRN (23:23)
[2022-01-11] MEDS: ENOXAPARIN 40 MG/0.4 ML SQ SCH (07:30)
[2022-01-11] MEDS: DOCUSATE NA 100 MG CAP PO SCH (07:30)
[2022-01-11] MEDS: MAGNESIUM OXIDE 400 MG TAB PO SCH ×2 (07:30→20:00)
[2022-01-11] MEDS: PYRIDOSTIGMINE 60 MG TABLET PO SCH ×2 (07:30→20:36)
[2022-01-11] MEDS: LOSARTAN POTASSIUM 50 MG TABLET PO SCH (07:30)
[2022-01-11] MEDS: ASPIRIN EC 81 MG TAB PO SCH (07:30)
[2022-01-11] MEDS: FE SULF/FA/VIT B COMP & C TAB PO SCH (07:30)
[2022-01-11] MEDS: LEVOTHYROXINE SOD 0.088 MG TAB PO SCH (07:30)
[2022-01-11] MEDS: CRANBERRY FRUIT EXTRACT 400 MG CAP PO SCH ×2 (07:32→20:38)
[2022-01-11] MEDS: PANTOPRAZOLE 40MG TABLET PO SCH (07:32)
[2022-01-11] MEDS: EZETIMIBE 10 MG TAB PO SCH (07:32)
[2022-01-11] MEDS: GABAPENTIN 100 MG CAP PO SCH ×2 (07:32→20:38)
[2022-01-11] MEDS: JUVEN PACKET PO SCH ×2 (07:34→20:39)
--- NOTE | 2022-01-11 10:58 | P.PN ---
Subjective Date of Service: 01/11/22 Chief Complaint: SHE IS LOT BETTER, WALKING WITH WALKER. Subjective: Improving SHE IS BETTER. PAIN IS MINIMAL SHE KNOWS ABOUT CHANGES WE ARE MAKING FOR PREVNTING ORTHOSTASIS. IT IS OF LABEL USE OF PYRIDOSTIGMINE.. SHE IS FEELING LOT BETTER. SHE IS GETTING READY TO GO HOME SOON. SHE IS NOT DIZZY ANY LONGER WHEN SHE STANDS. HER BP DOES NOT DROP MORE THAN 20 MM NOW ON STANDING AFTER STARTING [place]ST[place]. Physical Examination - Vital Signs Temperature: 97.8 F Blood Pressure: 160/78 Pulse: 78 Respirations: 16 Pulse Ox (%): 99 - Physical Exam General: Oriented x3, Mild distress HEENT: Atraumatic, PERRLA, EOMI Neck: Supple, JVD not distended Respiratory: Clear to auscultation bilaterally, Normal air movement Cardiovascular: Regular rate/rhythm, Normal S1 S2 Gastrointestinal: Normal bowel sounds, No tenderness Musculoskeletal: No tenderness Integumentary: No rashes Neurological: Normal speech, Normal tone, Normal affect Lymphatics: No axilla or inguinal lymphadenopathy - Studies Medications List Reviewed: Yes Assessment And Plan - Current Problems (Diagnosis) (1) Orthostasis Current Visit: Yes Status: Acute Plan: USE PYRIDOSTIGMINE I TAPERED OFF COREG TO PREVENT INTERACTION. PARASYMPATHETIC STIMULATION WILL ALSO HELP AVOID PAT. WILL DO DAILY STANDING BP WITHOUT WRAPS AND BINDER NOW. PYRIDOSTIGMINE SEEMS TO HELP. DC IN AM. I WENT OVER MEDS WITH HER. (2) SIADH (syndrome of inappropriate ADH production) Current Visit: No Status: Acute Plan: CHECK QOD SODIUM. SODIUM IS ABOUT 133 NOW NA IS 135NOW. (3) SVT (supraventricular tachycardia) Current Visit: No Status: Acute Plan: CONT B ALENA. (4) HTN (hypertension) Current Visit: No Status: Chronic Plan: WILL TRY SPIRONOLACTONE ONCE ORTHOSTASIS IS WELL CONTROLLED IF NEED TO. CONINUE AMLODIPINE AND COREG. Qualifiers: (5) Hip pain Current Visit: Yes Status: Acute Plan: CONTINU PAIN MDS MODIFIED. TRAMADOLQHS WITH TYELNOL HELPS A LOT. SP SURGERY DOING WELL. WILL WATCH BP DAILY..
[2022-01-11] MEDS: methocarbamoL 500 MG TAB PO PRN (17:31)
[2022-01-11] MEDS: AMLODIPINE 10 MG TAB PO SCH (20:38)
[2022-01-11] MEDS: MELATONIN 5 MG TABLET PO PRN (22:15)
[2022-01-12] MEDS: PYRIDOSTIGMINE 60 MG TABLET PO SCH (07:23)
[2022-01-12] MEDS: LEVOTHYROXINE SOD 0.088 MG TAB PO SCH (07:23)
[2022-01-12] MEDS: FE SULF/FA/VIT B COMP & C TAB PO SCH (07:24)
[2022-01-12] MEDS: CRANBERRY FRUIT EXTRACT 400 MG CAP PO SCH (07:24)
[2022-01-12] MEDS: PANTOPRAZOLE 40MG TABLET PO SCH (07:25)
[2022-01-12] MEDS: ASPIRIN EC 81 MG TAB PO SCH (07:25)
[2022-01-12] MEDS: MAGNESIUM OXIDE 400 MG TAB PO SCH (07:25)
[2022-01-12] MEDS: GABAPENTIN 100 MG CAP PO SCH (07:25)
[2022-01-12] MEDS: ENOXAPARIN 40 MG/0.4 ML SQ SCH (07:25)
[2022-01-12] MEDS: DOCUSATE NA 100 MG CAP PO SCH (07:25)
[2022-01-12] MEDS: JUVEN PACKET PO SCH (07:26)
[2022-01-12] MEDS: LOSARTAN POTASSIUM 50 MG TABLET PO SCH (07:26)
[2022-01-12] MEDS: EZETIMIBE 10 MG TAB PO SCH (07:26)
[2022-01-12 10:14] VITALS: BP 148/77; TEMP 97.4
[2022-01-12] MEDS: methocarbamoL 500 MG TAB PO PRN (10:58)
[2022-01-12] MEDS: TRAMADOL HCL 50 MG TAB PO PRN (11:00)
== END 2022-01-12 12:10 | disposition home or self-care (01) | DRG 560 ==
LOC: 5TH 13:13
PROVIDERS: ADMIT Psychiatry & Neurology Neurology with Special Qualifications in Child Neurology; ATTEND Psychiatry & Neurology Neurology with Special Qualifications in Child Neurology
DX: S72.002D Fracture of unspecified part of neck of left femur, subsequent encounter for closed fracture with routine healing (principal); E22.2 Syndrome of inappropriate secretion of antidiuretic hormone; I47.1 Supraventricular tachycardia; N39.0 Urinary tract infection, site not specified; F41.9 Anxiety disorder, unspecified; M81.0 Age-related osteoporosis without current pathological fracture; I95.1 Orthostatic hypotension; I10 Essential (primary) hypertension; B96.20 Unspecified Escherichia coli [E. coli] as the cause of diseases classified elsewhere; B95.2 Enterococcus as the cause of diseases classified elsewhere; Z20.822 Contact with and (suspected) exposure to COVID-19
CPT/HCPCS: 36415; 80048; 81001; 82040; 83735; 84134; 85025; 87077; 87086; 87088; 87186; 97110; 97112; 97116; 97161; 97530; 97542; J1650; U0003

== ENCOUNTER 2023-05-26 06:01 | Day surgery (SDC) | payer OTHER, BC ==
[2023-05-22 13:18] LABS: Absolute Lymphocytes (CBC) 1.8 K/uL (0.7-4.9); Hematocrit 40.1 % (36.0-45.0); Lymphocytes % 21.7 % (15.3-44.8); MCV 96.3 fL (80-100); MPV 8.4 fL (7.6-11.3); Platelets 288 thou/uL (152-406); RBC Red Blood Cell Count 4.16 M/uL (3.86-4.86)
--- NOTE | 2023-05-22 15:20 | EKG ---
Test Date: 2023-05-22 Test Time: 10:08:06 Relocation Associate: ALAN MEASUREMENT RESULTS: Intervals: Rate: 70 ID: [id number] QRSD: 78 QT: 402 QTc: 434 [place]: P: 71 ID: [id number] QRS: 60 T: 59 INTERPRETIVE STATEMENTS: Normal sinus rhythm Normal ECG Compared to ECG 12/25/2021 18:50:49 No significant changes Electronically Signed On 05-22-23 15:20:08 CDT by Frankie Chand
[2023-05-26] MEDS ORDERED: CLINDAMYCIN 900MG/D5W 900 MG/50 ML IVPB IV ONE (06:26)
[2023-05-26] MEDS ORDERED: Ringers Lactate 1,000 ML IV ONE (06:26)
[2023-05-26] MEDS ORDERED: BUPIVACAINE 0.25% PF 30 ML VIAL ONE (06:34)
[2023-05-26 06:52] LABS: Potassium 3.9 mEq/L (3.5-5.1)
[2023-05-26] MEDS ORDERED: propofoL 200 MG/20 ML VIAL IV ONE (07:06)
[2023-05-26] MEDS ORDERED: FENTANYL CITR 100 MCG/2 ML ONE (07:07)
[2023-05-26] MEDS ORDERED: MIDAZOLAM HCL 2 MG/2 ML INJ ONE (07:07)
[2023-05-26] MEDS ORDERED: ONDANSETRON 4 MG/2 ML VIAL ONE (07:07)
[2023-05-26] MEDS ORDERED: LIDOCAINE 2% MPF 5 ML VIAL ONE (07:07)
[2023-05-26] MEDS ORDERED: dexAMETHasone 4 MG/ML VIAL ONE (07:26)
[2023-05-26] MEDS ORDERED: EPHEDRINE SULF 50 MG/ML VIAL ONE (07:58)
[2023-05-26] MEDS ORDERED: KETOROLAC 30 MG/ML INJ ONE (08:07)
[2023-05-26 08:13] VITALS: O2SAT 100
--- NOTE | 2023-05-26 09:19 | OP ---
Date of Procedure: 05/26/2023 Surgeon: Samy Mathew MD Preoperative Diagnosis: Right knee pain with mechanical symptoms, probable meniscal tear or tears wi th some arthritic changes as well. Postoperative Diagnoses: 1.Large displaceable medial meniscal tear. 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 Procedure: Right knee arthroscopy with debridement of medial meniscus. Estimated Blood Loss: Less than 10 cc. Complications: There were no complications. Specimen: No pathology specimen sent. Indications For Operation: Ms. Rosado is a 78-year-old female who has mechanical symptoms related to her knee. She also experienced frequent bouts of swelling and has a large Negro cyst. She does hav e some degenerative changes, especially the medial and patellofemoral compartment; however, she is ma de aware that arthroscopic and intervention for arthritic changes is not helpful, although it could h elp with the mechanical symptoms. She states she understands everything as presented and wishes to p jan. Description Of Procedure: The patient was taken to the operating room, placed in supine position. G eneral anesthesia was obtained by Anesthesia staff. Following this, well-padded tourniquet was place d on superior right thigh. Right lower extremity was then prepped and draped in usual sterile fashio n. The tourniquet was not used throughout the case. Following this, a standard superior medial arth roscopy portal was then placed, uses a drainage needle with liberation approximately 15 cc of rather normal-appearing synovial fluid. This was followed by placement of inferolateral arthroscopy portal. The camera was then introduced in the knee atraumatically with 1 pass. The knee was then sequentia lly examined including the suprapatellar pouch, the medial and lateral compartments, medial and later al gutters, as well as the notch and patellofemoral joint. Pertinent findings included a large displ aceable medial meniscal tear. Also seen is exuberant amount of fat pad formation as well as grade 3- 4 chondromalacia of the medial compartment and grade 2 chondromalacia of the patellofemoral joint. A standard medial arthroscopy portal was then established using a needle for localization and this was used as a working portal. The shaver was then used to debride back some fat pad to allow for better visualization and also decrease some of the bulk, which may actually be entering the patellofemoral joint; however, was done primarily for visualization. After this, the medial meniscus was then debri ded back to a firm hook, stable, well contoured base, and probed to ensure that this has been done ap propriately and this looks stable. Following this, the knee was again examined. All the above areas with no further pathology seen, which is amenable to arthroscopic intervention. The inferior arthro scopy portals were then stapled shut. Superior medial arthroscopy portal was then closed after place ment of Marcaine with epinephrine. The patient was placed in a well-padded sterile dressing, awakene d, and taken to recovery room in good condition. There were no complications. /EBONY Voice ID: [id number] Report ID: [id number]
[2023-05-26] MEDS ORDERED: HYDROCODONE/APAP 7.5/325 MG TAB ONE (09:30)
[2023-05-26 10:39] VITALS: BP 164/85; TEMP 97.2
== END 2023-05-26 09:55 | disposition home or self-care (01) ==
LOC: OR 06:01
PROVIDERS: ATTEND Orthopaedic Surgery
PROC: 0SBC4ZZ Excision of Right Knee Joint, Percutaneous Endoscopic Approach (ICD-10-PCS; principal; 2023-05-26 07:00)
DX: S83.241A Other tear of medial meniscus, current injury, right knee, initial encounter (principal); X58.XXXA Exposure to other specified factors, initial encounter; M22.41 Chondromalacia patellae, right knee; I10 Essential (primary) hypertension; E78.00 Pure hypercholesterolemia, unspecified; E07.9 Disorder of thyroid, unspecified; Z88.1 Allergy status to other antibiotic agents
CPT/HCPCS: 93005; 85025; 80048; 36415 ×2; 29881; J2704; J1100; J2001; J2250; J3010; J2405; J7120